=== PATIENT | female | born 2000 | race Caucasian/White ===

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

== ENCOUNTER 2021-12-10 14:06 | Emergency (ER) | payer OTHER, SELFPAY ==
[2021-12-10 14:16] VITALS: BP 138/100; PULSE 105; RESP 14; TEMP 36.8; O2SAT 100
--- NOTE | 2021-12-10 14:19 | ED.URI ---
HPI - URI/Sore Throat General Chief Complaint: Upper Respiratory Infection Stated Complaint: Chest Congestion/Sore Throat Time Seen by Provider: 12/10/21 14:35 Source: patient, RN notes reviewed and old records reviewed Mode of arrival: ambulatory Limitations: no limitations History of Present Illness HPI Narrative: 21-year-old female who presents to [facility] care with 4 day history of cough with increase in the past 2 days with some shortness of breath and some feelings of wheezing. Patient states no fevers chill or sweats. reports that she has expectorated some yellowish mucous with cough. Patient reports that she has not taken any OTC medication for her symptoms. Patient reports that she has had no fevers or chills. Patient states that she had COVID in June of 2021 MD elicited complaint: cough and sore throat Related Data Home Medications Medication Instructions Recorded Confirmed lisinopril 10 mg PO DAILY 12/10/21 12/10/21 Allergies Allergy/AdvReac Type Severity Reaction Status Date / Time No Known Allergies Allergy Verified 12/10/21 14:38 Review of Systems Review of Systems: CONSTITUTIONAL: Denies fever, chills, or sweats. EYES: Denies visual changes, redness, or discharge. ENT: Denies rhinorrhea, congestion,initial sore throat but gone, no otalgia. CARDIOVASCULAR: Denies chest pain, palpitations, or edema. RESPIRATORY:Positive for cough and some dyspnea with wheezing GASTROINTESTINAL: Denies abdominal pain, nausea, vomiting, or diarrhea. GENITOURINARY: Denies dysuria or hematuria. SKIN: Denies rash or itching. MUSCULOSKELETAL: Denies back pain, joint pain, or myalgia. NEUROLOGIC: Denies headache, numbness, or weakness. PSYCHIATRIC: Denies anxiety or depression. All systems reviewed & are unremarkable except as noted in HPI and below PMFSH Past Medical History Medical History Hypertension Hypertension during Family History Family History Mother Hypertension Grandparent Hypertension Diabetes mellitus Social History Social History Smoking status: Former smoker Tobacco type: e-cigarettes/vaping Substance use: never Spiritual care concerns: No Comments At time of signature, agree with nursing past medical, surgical, social and family history. There is no relevant family history pertinent to the presenting complaint Exam Narrative: GENERAL: Well-appearing, well-nourished, and in no acute distress. HEAD: Normocephalic, atraumatic. EYES: PERRLA and EOMI. ENT: Nares clear, minimal clear rhinorrhea no epistaxis. Mucous membranes moist. TM's normal with good light reflex, throat mild red with no lesions or exudates or tonsil enlargement. NECK: Supple. no lymphadenopathy CHEST: Scattered wheezing noted on auscultation. No respiratory distress,cough noted,SAO2 100% on room air HEART: Regular rate and rhythm. No murmur heard. Normal peripheral pulses. ABDOMEN: Soft, nontender, nondistended, normal active bowel sounds. EXTREMITIES: Normal range of motion. No edema. SKIN: Warm, dry, no rash. NEURO: No focal deficits. Alert and oriented x3. Course Course Level of Care: Express Care Visit Vital Signs Vital signs: Vital Signs Temperature 36.8 C 12/10/21 14:16 Pulse Rate 105 H 12/10/21 14:16 Respiratory Rate 14 12/10/21 14:16 Blood Pressure 138/100 H 12/10/21 14:16 Pulse Oximetry 100 12/10/21 14:16 Temperature 36.8 C 12/10/21 14:16 Pulse Rate 105 H 12/10/21 14:16 Respiratory Rate 14 12/10/21 14:16 Blood Pressure 138/100 H 12/10/21 14:16 Pulse Oximetry 100 12/10/21 14:16 MDM - URI/Sore Throat Differential Diagnosis Differential diagnosis: Likely upper respiratory infection, sinusitis, viral infection, bronchitis and pharyngitis Medical Records Attestation: I reviewed the patient's medica
== END 2021-12-10 15:30 | disposition home or self-care (01) ==
PROVIDERS: Emergency Provider Registered Nurse
DX: J40 Bronchitis, not specified as acute or chronic (principal); I10 Essential (primary) hypertension; Z86.16 Personal history of COVID-19
CPT/HCPCS: 99213; G0463

== ENCOUNTER 2022-08-22 11:01 | Emergency (ER) | payer OTHER, SELFPAY ==
[2022-08-22 11:01] VITALS: BP 153/109; PULSE 88; RESP 16; TEMP 36.5; O2SAT 100
--- NOTE | 2022-08-22 11:20 | ED.DENTAL ---
HPI - Dental/Oral General Chief complaint: Dental/Oral Stated complaint: Tooth Pain Time Seen by Provider: 08/22/22 11:20 Source: patient Mode of arrival: ambulatory History of Present Illness HPI Narrative: 22-year-old female presented for complaint of left lower dental pain worsening over the last 2 months. States this site is a cracked tooth and the filling has been chipped for a long time. She endorses she was unable to sleep last due to the pain. Denies drainage or swelling. She is unable to get in with distorted. She denies Tylenol arthritis and Orajel for symptoms. MD Complaint: tooth pain Related Data Home Medications Medication Instructions Recorded Confirmed lisinopril 10 mg tablet 10 mg PO DAILY 08/22/22 08/22/22 Allergies Allergy/AdvReac Type Severity Reaction Status Date / Time No Known Allergies Allergy Verified 08/22/22 11:24 Review of Systems Review of Systems: CONSTITUTIONAL: Denies body aches, fever, chills ENT: Denies rhinorrhea, congestion, sore throat, or otalgia. Reports dental pain CARDIOVASCULAR: Denies chest pain, palpitations RESPIRATORY: Denies cough or dyspnea. SKIN: Denies rash, itching, or wounds. MUSCULOSKELETAL: Denies myalgia. NEUROLOGIC: Denies headache, numbness, tingling, or weakness. [facility] Past Medical History Medical History Hypertension Hypertension during Family History Family History Mother Hypertension Grandparent Hypertension Diabetes mellitus Social History Social History Smoking status: Former smoker Tobacco type: e-cigarettes/vaping Substance use: never Spiritual care concerns: No Comments At time of signature, I have reviewed and agree with nursing past medical, surgical, social and family history unless otherwise noted. Please see nursing chart for further information. There is no relevant family history pertinent to the presenting complaint Exam Narrative: GENERAL: Appears in pain; no acute distress. HEAD: Normocephalic, atraumatic. EYES: EOMI. No redness or drainage. Conjunctivae normal. ENT: Dental pain location of #19, site is cracked tooth, discolored brown , and broken filling, moderate erythema and gum swelling. No active drainage. Mucous membranes pink and moist. TMs normal bilaterally. Throat normal. Uvula midline. NECK: Normal AROM. left submandibular lymphadenopathy. CHEST: Clear to auscultation. HEART: Regular rate and rhythm. No murmur appreciated. SKIN: Warm, dry, no rash. Normal skin turgor. NEURO: No focal deficits. Alert and oriented x3. Gait steady. Course Course Emergency Course: Patient is aware of diagnosis, understands and agrees to treatment plan. Anticipatory guidance given. Patient agrees to follow-up as directed and is aware of reasons to seek care at the emergency department. Portions of this record may have been created with voice recognition software Level of Care: Express Care Visit Vital Signs Vital signs: Vital Signs Temperature 97.7 F 08/22/22 11:01 Pulse Rate 88 08/22/22 11:01 Respiratory Rate 16 08/22/22 11:01 Blood Pressure 153/109 H 08/22/22 11:01 Pulse Oximetry 100 08/22/22 11:01 Oxygen Delivery Room Air 08/22/22 11:01 Temperature 97.7 F 08/22/22 11:01 Pulse Rate 88 08/22/22 11:01 Respiratory Rate 16 08/22/22 11:01 Blood Pressure 153/109 H 08/22/22 11:01 Pulse Oximetry 100 08/22/22 11:01 Oxygen Delivery Room Air 08/22/22 11:01 MDM - Dental/Oral MDM Narrative Medical decision making narrative: Patients pain and complaint coupled with physical findings are consistent with dentalgia/ dental abscess There are no focal signs of space occupying lesions that are compromising to the airway; no dysphagia, odynophagia, dysphonia, or dyspnea. No uvular deviatio
== END 2022-08-22 11:32 | disposition home or self-care (01) ==
PROVIDERS: Emergency Provider Nurse Practitioner Family; PCP Family Medicine
DX: K04.7 Periapical abscess without sinus (principal); Z87.891 Personal history of nicotine dependence; I10 Essential (primary) hypertension
CPT/HCPCS: 99213; G0463

== ENCOUNTER 2023-05-09 09:21 | Emergency (ER) | payer OTHER, SELFPAY ==
[2023-05-09 09:27] VITALS: BP 173/127; PULSE 99; RESP 18; TEMP 36.8; O2SAT 98
--- NOTE | 2023-05-09 09:49 | ED.DENTAL ---
HPI - Dental/Oral General Chief complaint: Dental/Oral Stated complaint: Toothache Time Seen by Provider: 05/09/23 09:49 Source: patient, RN notes reviewed and old records reviewed Mode of arrival: ambulatory Limitations: no limitations History of Present Illness HPI Narrative: 23 year old female who presents to [facility] care with complaints of dental pain to left upper and lower molars # 15 and #18 which started last night. Patient reports that she has appointment in August at [facility] for dental work but did call this morning to see if she could get in quicker. Patient has taken Ibuprofen and also used numbing gel for her discomfort. Patient has had previous episodes of same teeth bothering her in August of 2022. Patient reports that her last doctors appointment she was taken off of her hypertensive medication but blood pressure elevated today,patient instructed that she needs to follow up with her PCP in regards to elevated blood pressure. Patient reports had PIH and had been on medication for awhile after delivery of child.Patient did receive call and is able to get into dentist tomorrow due to a cancellation. MD Complaint: tooth pain Location: Tooth # (15,18) Onset (ago): day(s) (1) Severity scale (1-10): 9 Treatment prior to arrival: oral analgesic Related Data Allergies Allergy/AdvReac Type Severity Reaction Status Date / Time No Known Allergies Allergy Verified 08/22/22 11:24 Review of Systems Review of Systems: CONSTITUTIONAL: Denies fever, chills, or sweats. ENT: Denies rhinorrhea, congestion, sore throat, or otalgia. Reports dental pain#15 and #18 teeth with hole noted in bottom tooth and broken upper molar. CARDIOVASCULAR: Denies chest pain, palpitations, or edema. RESPIRATORY: Denies cough or dyspnea. SKIN: Denies rash or itching. MUSCULOSKELETAL: Denies myalgia. NEUROLOGIC: Denies headache All systems reviewed & are unremarkable except as noted in HPI and below PMFSH Past Medical History Medical History (Updated 05/10/23 @ 08:00 by Jacinta Vyas NP) Hypertension Hypertension during Urinary tract infection Family History Family History Mother Hypertension Grandparent Hypertension Diabetes mellitus Social History Social History Smoking status: Former smoker Tobacco type: e-cigarettes/vaping Substance use: never Spiritual care concerns: No Comments At time of signature, agree with nursing past medical, surgical, social and family history. There is no relevant family history pertinent to the presenting complaint Exam Narrative: GENERAL: Well-appearing, well-nourished, and in no acute distress. HEAD: Normocephalic, atraumatic. EYES: PERRLA and EOMI, TM's normal, throat pink with no swelling ENT: Nares clear, no rhinorrhea or epistaxis. Mucous membranes moist,hole in bottom molar with redness around gum#18, broken upper left molar #15, no trismus or any facial swelling noted NECK: Supple.,no lymphadenopathy CHEST: Clear to auscultation. No respiratory distress.SAO2 98% on room air HEART: Regular rate and rhythm. No murmur heard. Normal peripheral pulses. SKIN: Warm, dry, no rash. NEURO: No focal deficits. Alert and oriented x3. Course Course Emergency Course: Patient is aware of diagnosis, understands and agrees to treatment plan. Anticipatory guidance given. Patient agrees to follow-up as directed and is aware of reasons to seek care at the emergency department. Portions of this record may have been created with voice recognition software Level of Care: Express Care Visit Vital Signs Vital signs: Vital Signs Temperature 36.8 C 05/09/23 09:27 Pulse Rate 99 05/09/23 09:27 Respiratory Rate 18 05/09/23 09:27 Blood Pressure 173/127 H 05/09/23 09:27 Pulse Oximetry 98 05/09/23 09:27 Oxygen Delivery Room Air 05/09/23 09:27
[2023-05-09 10:00] VITALS: BP 160/104
== END 2023-05-09 10:07 | disposition home or self-care (01) ==
PROVIDERS: Emergency Provider Registered Nurse; PCP Family Medicine
DX: K04.7 Periapical abscess without sinus (principal); I10 Essential (primary) hypertension; Z87.891 Personal history of nicotine dependence
CPT/HCPCS: 99203; G0463

== ENCOUNTER 2024-01-08 11:43 | Emergency (ER) | payer OTHER, SELFPAY ==
--- NOTE | 2024-01-08 11:52 | ED.GENADULT ---
HPI - General Adult General Chief complaint: Dizziness Stated complaint: Blood Pressure Problem Time Seen by Provider: 01/08/24 12:06 Source: patient Mode of arrival: ambulatory Limitations: no limitations History of Present Illness HPI narrative: 23-year-old female presents with concern for dizziness, high blood pressure. She reports feeling like she was going to pass out and blurry vision today at work. She reports history of hypertension, she was recently taken off of her antihypertensive medication because it was felt her blood pressure was getting too low. She denies any thunderclap headache, weakness in any extremity, difficulty speaking, difficulty swallowing. MD complaint: hypertension Related Data Home Medications Medication Instructions Recorded Confirmed norethindrone (contraceptive) 0.35 0.35 mg PO DAILY 01/08/24 01/08/24 mg tablet Allergies Allergy/AdvReac Type Severity Reaction Status Date / Time No Known Allergies Allergy Verified 08/22/22 11:24 Review of Systems Review of Systems: CONSTITUTIONAL: Denies malaise, chills, sweats, or fever. EYES: Reports blurry vision CARDIOVASCULAR: Denies chest pain, palpitations, or edema. RESPIRATORY: Denies cough or dyspnea. GASTROINTESTINAL: Denies abdominal pain, NEUROLOGIC: Denies numbness, weakness, or headache. Reports dizziness, feeling of near-syncope PSYCHIATRIC: Denies anxiety or depression. All systems reviewed & are unremarkable except as noted in HPI and below PMFSH Past Medical History Medical History (Updated 01/08/24 @ 12:22 by Bonnie Silva NP) Hypertension Hypertension during Urinary tract infection Family History Family History Mother Hypertension Grandparent Hypertension Diabetes mellitus Social History Social History Smoking status: Former smoker Tobacco type: e-cigarettes/vaping Substance use: never Spiritual care concerns: No Comments At time of signature, agree with nursing past medical, surgical, social and family history. There is no relevant family history pertinent to the presenting complaint Exam Narrative: GENERAL: Well-appearing, well-nourished, and in no acute distress. HEAD: Normocephalic, atraumatic. EYES: PERRLA, sclera clear, and EOMI. No nystagmus. ENT: Nares clear, turbinates pink, no rhinorrhea or epistaxis. Mucous membranes moist. NECK: Supple. CHEST: No respiratory distress. Clear to auscultation. No bony deformities, no asymmetry. Speaks in full sentences. HEART: Regular rate and rhythm. No murmur heard. Normal peripheral pulses. SKIN: Warm, dry, no visible rash. NEURO: Alert and oriented x3. No focal deficits. Cranial nerves II through XII grossly intact PSYCH: Normal mood and affect Course Course Emergency Course: Patient is aware of, understands and agrees to be transferred to the ER. Patient agrees to proceed directly to the emergency department. Portions of this record may have been created with voice recognition software Level of Care: Express Care Visit Vital Signs Vital signs: Reviewed. Transfer Transfered to: [facility]) Transportation: Other (private vehicle) Transfer rationale: HTN Accepting physician: Page Transfer comments: I advised patient that she should not drive herself for safety reasons. She was unable to find a ride and did not want to take an ambulance. She signed AMA paperwork to this effect Medical Decision Making MDM Narrative Medical decision making narrative: The patient was evaluated by myself in the emergency department. History is obtained from patient who is an independent historian and physical exam was performed.? Available medical records were reviewed at this time. ? Exam findings warrant further evaluation in the ER ? Critical Care Time Critical Care Time Critical Care Time: No Disc
[2024-01-08 11:53] VITALS: BP 156/115; PULSE 102; RESP 16; TEMP 37.2; O2SAT 100
== END 2024-01-08 12:15 | disposition short-term general hospital (02) ==
PROVIDERS: Emergency Provider Nurse Practitioner; PCP Family Medicine
DX: I10 Essential (primary) hypertension (principal)
CPT/HCPCS: 99213; G0463

== ENCOUNTER 2024-07-02 09:49 | Emergency (ER) | payer OTHER, SELFPAY ==
--- OUTSIDE RECORDS SUMMARY | 2024-07-02 09:52 | XMS_ITS | Data Portability ---
Author Organization [facility] Address [address] [place] [address] Assessment Encounter Date Assessment Date Assessment LastModified by Organization Details LastModified Time 02/10/2021 02/10/2021 since upt and blood negative for plan Depo injection today, f/u wwe [email or web address] Not available 02/10/2021 11:05:48 06/09/2021 06/09/2021 PCP referral she will restart her labetalol in the meanwhile. discussed with uncontrolled htn, may not be on estrogen. Discussed progesterone only options, she would like POP. slynd sent. Discussed the usage, side effects, risks, and benefits of OCP use. Questions answered. She will start OCP with next menses and follow up for a med check in 4 mos. [email or web address] Not available 06/12/2021 10:07:00 Plan of Treatment Reminders Order Date Submit Date Provider Last Modified By Organization Details Last Modified Time Details Appointments None recorded. Lab None recorded. Referral None recorded. Procedures None recorded. Surgeries None recorded. Imaging None recorded. Medication Orders labetalol 100 mg tablet 2020 021 Not available 12:11:49 [employer] a 150 mg/mL intramuscul ar suspension 2020 021 Not available 14:11:01 Depo-[employer] a 150 mg/mL intramuscul ar suspension 2020 021 [email or web address] Not available 14:11:01 Slynd 4 mg (28) tablet 2020 JERI Not available 16:20:52 Patient TargetsNo targets recorded. Patient InstructionsNo instructions recorded. Reason for Referral None Reported. Results Created Date Observation Date Name Description Value Unit Range Abnormal Flag Note LastModifiedBy Organization Detail LastModifiedTime 11/23/19 21 11/22/2020 strep tococ cus group B, cultu re, unspe cifie d speci men result report SEE RESULT S BELOW Test: Cultu re: Group B Strep Scree n - Vagin al/Re ctal Speci men Sourc e: Vagin a/Rec miguel Speci men Type: Vagin al/Re ctal Speci men Date: 2:27 PM Resul t Date: 8:18 PM Resul t Statu s: Final resul t Abnor mal: No Resul ting Lab: [facility] [address] [address] Tel: CULTU RE ----- ----- ----- --- No Group B strep isola raciel at 2 days (rochelle ctive broth enhan cemen t) Not Available [facility] (Lab) [address] [facility], [place], [address], 11/25/2020 21:22:07 02/11/20 21 02/10/2021 CT/GC AND TRICH OMONA S VAGIN FATOU (RRNA ), URINE chlamydia trachomatis, PCR Negati ve negati ve Not Available [facility] (Lab) [address] [facility] [facility], [place], [address], 02/11/2021 13:59:27 02/11/20 21 02/10/2021 CT/GC AND TRICH OMONA S VAGIN FATOU (RRNA ), URINE neisseria gonorrhoeae, PCR Negati ve negati ve Not Available [facility] (Lab) [address] [facility], [place], [address], 02/11/2021 13:59:27 02/11/20 21 02/10/2021 CT/GC AND TRICH OMONA S VAGIN FATOU (RRNA ), URINE trichomonas vaginalis ribosomal RNA (rrna) Negati ve negati ve Not Available [facility] (Lab) [address], [place], [address], 02/11/2021 13:59:27 02/11/20 21 02/10/2021 pregn farhat test, urine HCG negati ve Not Available [facility] [address], [place], [address], 02/10/2021 10:51:32 11/09/19 21 11/08/2020 non-s tress test No observ ation record ed. [email or web address], [place], [address], 11/08/2020 11:08:06 11/12/19 21 11/11/2020 US, obste tric, follo w-up No observ ation record ed. [address] [facility] [address] [place] [address], [address], 11/14/2020 11:00:47 11/15/19 21 11/11/2020 US, obste tric, follo w-up No observ ation record ed. [address] [facility] [address] [place] [address], [address], 11/14/2020 11:00:47 11/16/19 21 11/15/2020 US, obste tric, follo w-up No observ ation record ed. [address] [facility] [address] [place] [address], [address], 11/17/2020 10:26:22 11/17/19 21 11/15/2020 US, obste tric, follo w-up No observ ation record ed. [address] [facility] [address] [place] [address], [address], 11/17/2020 10:26:01 11/23/1911/22/2020 US, obste tric No observ ation record ed. [email or web address] [facility] [address] [place], [address], 11/22/2020 17:48:40 11/24/1911/22/2020 US, obste tric, follo w-up No observ ation record ed. [email or web address] [facility] [address] [place], [address], 11/23/2020 14:14:02 Result Notes None recorded. Problems Name Problem SNOMED Code Status Onset Date Resolution Date Notes Provider Name and Address Organization Details Recorded Time Pregnanc y 03183155 Completed 202012/09/2020 Corina llanes [facility] 12:27:21 Pregnanc y-induce d hyperten lindsay 61063126 Completed Vinny Merchant MD [address], [place], [address], [place] [facility] 12:37:40 Chronic hyperten lindsay in obstetri c context 3749563 Completed NSTs @ 32 wks, had baseline PIH labs & 24 TP with previous provider Corina llanes [facility] 12:27:15 Low lying placenta 996980786 Completed 202009/22/2020 RESOLVED Corina llanes [facility] 12:27:15 Doppler studies abnormal 168330252 Completed 2020 [facility]FM - [facility] 09/27 09 U/S no follow up indicate d Corina llanes [facility] 12:27:15 Small for gestatio nal age fetus 323806535 Completed 2020 [facility]FM - [facility] 11/29 US & NST 0730 Corina Radhaedmond osiris null, [facility] 12:27:15 Chronic hyperten lindsay complica ting AND/OR reason for care during pregnanc y 98438265 Completed 202002/10/2021 Latia Wolf null, [facility] 10:44:01 Problem Notes None recorded. Procedures Surgical History Date Name Laterality Status Provider Name and Address Organization Details Recorded Time 11/01/2020 NST completed Shayy Fuentes MD [address], [place], [address], [facility] 11/01/2020 12:04:11 Imaging Results Imaging Date Name Status LastModified by Organiz ation Details LastModified Time 11/08/2020 non-stress test completed [email or web address], [place], [address], 11/08/2020 11:08:06 11/11/2020 US, obstetric, follow-up completed [address] [facility] [address], [address], 11/14/2020 11:00:47 11/11/2020 US, obstetric, follow-up completed [address] [facility] [address], [address], 11/14/2020 11:00:47 11/15/2020 US, obstetric, follow-up completed [address] [facility] [address], [address], 11/17/2020 10:26:22 11/15/2020 US, obstetric, follow-up completed [address] [facility] [address], [address], 11/17/2020 10:26:01 11/22/2020 US, obstetric completed [email or web address] [facility] [address] [place], [address], 11/22/2020 17:48:40 11/22/2020 US, obstetric, follow-up completed [email or web address] [facility] [address] [place], [address], 11/23/2020 14:14:02 Procedure Notes None recorded. Medical Equipment None Reported. Allergies No known drug allergies Medications Name Sig Start Date Stop Date Status Note LastModified by Organization Details LastModified Time Mirena 21 mcg/24 hr (up to 8 years) 52 mg intrauter ine device Take 1 device by intraute rine route. 02/10 completed mirena iud inserted 1 and needs removed by 7 Not Available Not Available Not Available labetalol 200 mg tablet Take 1 tablet twice a day by oral route. 06/09 completed Not Available Not Available Not Available bacitraci n 500 unit/gram topical ointment NAVI TOPICALL Y AA BID 08/10 completed Not Available Not Available Not Available metronida zole 500 mg tablet TAKE 1 TABLET BY MOUTH TWICE A DAY FOR 7 DAYS 08/10 completed Not Available Not Available Not Available cephalexi n 500 mg capsule TAKE 1 CAPSULE BY MOUTH TWICE A DAY 11/08 completed Not Available Not Available Not Available lisinopri l 10 mg tablet TAKE 1 TABLET BY MOUTH EVERY DAY active Not Available Not Available No t Available cephalexi n 500 mg tablet take one capsule by oral route every 12 hours 11/08 completed Not Available Not Available Not Available labetalol 100 mg tablet Take 1 tablet every day by oral route. 12/26 completed Not Available Not Available Not Available nifedipin e ER 60 mg tablet,ex tended release TAKE 1 TABLET BY MOUTH EVERY DAY 08/10 completed Not Available Not Available Not Available fluticaso ne propionat e 50 mcg/actua tion nasal spray,portia pension SPRAY 1 SPRAY INTO EACH NOSTRIL EVERY DAY 08/10 completed Not Available Not Available Not Available medroxypr ogesteron e 150 mg/mL intramusc ular suspensio n Inject 1 mL every 3 months by intramus cular route. 06/02 completed Not Available Not Available Not Available amoxicill in 875 mg-potass ium clavulana te 125 mg tablet TAKE 1 TABLET BY MOUTH EVERY 12 HOURS 11/08 completed Not Available Not Available Not Available Vitamin 27 mg iron-0.8 mg tablet TAKE 1 TABLET BY MOUTH EVERY DAY 12/26 completed Not Available Not Available Not Available 08/10 (28) 1 mg-20 mcg (21)/75 mg (7) tablet TAKE 1 TABLET BY MOUTH EVERY DAY 08/10 completed Not Available Not Available Not Available nitrofura ntoin monohydra te/macroc rystals 100 mg capsule TAKE 1 CAPSULE BY MOUTH EVERY 12 HOURS FOR 5 DAYS 08/10 completed Not Available Not Available Not Available Slynd 4 mg (28) tablet TAKE 1 TABLET BY MOUTH EVERY DAY active Not Available Not Available No t Available Vitals Date Recorded Body height Body mass index (BMI) Percentile per age and sex Body mass index (BMI) Systolic blood pressure Diastolic blood pressure Systolic blood pressure Diastolic blood pressure Provider Name and Address Organization Details Last Updated DateTime 1 154.94 cm 95 % 31.2 kg/m2 139 mm[Hg] 100 mm[Hg] 123 mm[Hg] 87 mm[Hg] [facility] 12:16:18 Date Recorded Body weight Provider Name an d Address Organization Details Last Updated DateTime 12/06/2020 97665.40622 g Corina White [facility] 12/09/2020 12:27:19 Date Recorded Body height Body mass index (BMI) Percentile per age and sex Body mass index (BMI) Body weight Systolic blood pressure Diastolic blood pressure Provider Name and Address Organization Details Last Updated DateTime 1 154.94 cm 95 % 31.2 kg/m2 78439.7 4 g 132 mm[Hg] 92 mm[Hg] Juany Murrieta [facility] 12:11:45 Date Recorded Body height Body mass index (BMI) Percentile per age and sex Body mass index (BMI) Body weight Body height Systolic blood pressure Diastolic blood pressure Provider Name and Address Organization Details Last Updated DateTime 1 154.94 cm 95 % 31.6 kg/m2 82280.9 3 g 154.94 cm 130 mm[Hg] 89 mm[Hg] Latia Wolf [facility] 1 10:43:52 Date Recorded Body height Body mass index (BMI) Percentile per age and sex Body mass index (BMI) Body weight Systolic blood pressure Diastolic blood pressure Systolic blood pressure Diastolic blood pressure Provider Name and Address Organization Details Last Updated DateTime 1 154.94 cm 96 % 33.3 kg/m2 75858.2 6 g 146 mm[Hg] 99 mm[Hg] 150 mm[Hg] 102 mm[Hg] Ketty Armas [facility] 1 16:08:03 Social History Question Answer Notes LastModified by Organizat ion Details LastModified Time Tobacco Smoking Status Never Smoker Latia Wolf [facility] 09/27/2020 10:48:19 Do You Have An Advance Directive? No [email or web address] Information not available 09/27/2020 What Is Your Level Of Alcohol Consumption? None [email or web address] Information not available 09/27/2020 If You Are , What Was Your Level Of Alcohol Consumption Prior To ? None [email or web address] Information not available 09/27/2020 Are You Blind Or Do You Have Difficulty Seeing? No [email or web address] Information not available 09/27/2020 What Is Your Level Of Caffeine Consumption? Moderate Information not available 08/10/2020 How Much Tobacco Do You Chew? None [email or web address] Information not available 09/27/2020 In The 14 Days Before Symptom Onset, Have You Had Close Contact With A Laboratory-confir med COVID-19 While That Case Was Ill? No Information not available 09/27/2020 In The 14 Days Before Symptom Onset, Have You Had Close Contact With A Person Who Is Under Investigation For COVID-19 While That Person Was Ill? No [email or web address] Information not available 09/27/2020 Have You Been To An Area Known To Be High Risk For COVID-19? No [email or web address] Information not available 09/27/2020 Are You Deaf Or Do You Have Serious Difficulty Hearing? No [email or web address] Information not available 09/27/2020 What Type Of Diet Are You Following? REGULAR [email or web address] Information not available 09/27/2020 Do You Or Have You Ever Used E-cigarettes Or Vape? Former User Of Electronic Cigarettes [email or web address] Information not available 09/27/2020 What Is The Highest Grade Or Level Of School You Have Completed Or The Highest Degree You Have Received? [id number] [email or web address] Information not available 09/27/2020 Are There Any Guns Present In Your Home? No [email or web address] Information not available 09/27/2020 Do You Use Protection During Sex? No Information not available 09/27/2020 Do You Use Your Seat Belt Or Car Seat Routinely? Yes Information not available 09/27/2020 Do You Have Smoke And Carbon Monoxide Detectors In Your Home? Yes [email or web address] Information not available 09/27/2020 How Much Tobacco Do You Smoke? No [email or web address] Information not available 09/27/2020 Do You Feel Stressed (tense, Restless, Nervous, Or Anxious, Or Unable To Sleep At Night)? [id number] [email or web address] Information not available 09/27/2020 Do You Use Any Illicit Or Recreational Drugs? No Information not available 08/10/2020 Do You Use Sunscreen Routinely? Yes [email or web address] Information not available 09/27/2020 Has Tobacco Cessation Counseling Been Provided? No [email or web address] Information not available 09/27/2020 Have You Used IV Drugs? No [email or web address] Information not available 09/27/2020 Do You Or Have You Ever Used Any Other Forms Of Tobacco Or Nicotine? Yes [email or web address] Information not available 09/27/2020 How Many Years Have You Used E-cigarettes Or Vape? 1 [email or web address] Information not available 09/27/2020 Sex: Unknown Functional Status Question Answer Note LastModified by Organization D etails LastModified Time Are you able to walk? [email or web address] Information not available 09/27/2020 What is your exercise level? Moderate Information not available 08/10/2020 Mental Status None recorded. Family History Relationship Description Onset Age of this Age Resolved Age Notes LastModified by Organization Details LastModified Time Paternal Grandfather Diabetes mellitus Not available 2020 12:22:01 Maternal Aunt Diabetes mellitus Not available 2020 12:22:01 Maternal Aunt Hyperlipidem ia phewitt Not available 2020 10:36:27 Mother Hyperlipidem ia phewitt Not available 2020 10:36:27 Mother Hypertensive disorder Not available 2020 12:22:49 Maternal Grandmother Hypertensive disorder Not available 2020 12:22:49 Paternal Aunt Hypertensive disorder Not available 2020 12:22:49 Medical History Condition Response Allergies (Food, seasonal, environmental ) N Other N Drug/Latex Allergies/Reactions N Blood Transfusion N Breast Cancer N Dermatologic Disorders N Lung Disease N Defects or Inherited Disease N Breast Problem N Gestational Diabetes N Hematologic disorders N Anesthesia Complications N History of STI N Deep Vein Thrombosis N Polycystic ovary syndrome N Anxiety Disorder N Autoimmune disease N Arthritis N Polyps N Infertility N Acid Reflux (GERD) N History of abnormal pap N Cancer N Varicosities N Stroke N Neurologic/Epilepsy N Endometriosis N High Cholesterol N Fibromyalgia N Headaches N Kidney Disease N Heart Problems N Thyroid Problems N Kidney or Bladder Problems N GI Problems N Eating Disorder N Anemia N Art (IVF or FET) N Psychiatric Illness N Ovarian Cancer N Diabetes N Pulmonary (TB, Asthma) N Hepatitis/Liver Disease N No Past Medical History N Eczema N Urinary Tract Infection N Abuse/Domestic Violence N Asthma N Trauma/Violence N Depression/ depression N Heart Disease N Pre-Eclampsia N Hypertension Y Osteoporosis N Thrombophilias N Gynecological History Statement/Question Response On BCP's at Conception? N N STIs/STDs Y Was last menstrual period normal N HPV Vaccine N Duration of Flow (days) 4 15 Current Control Method None Frequency of Cycle (Q days) 4 Sexually Active? Y Age of first menstrual cycle 16 Date of Last Pap Smear Sexual Problems? N Desired Control Method BCPs N Obstetrics History GPAL:G 2 P 2 0 0 2 Type Value Full Term 2 Living 2 Total 2 Past Encounters Encounter ID Performer Location Encounter Start Date Encounter Closed Date Diagnosis/Indication Diagnosis SNOMED-CT Code Diagnosis ICD10 Code [id number] Vinny Merchant MD [facility] [address],[place] [address] 08/10/2020 11:32:10 08/10/2020 12:55:50 Routine care 604132940 Z34.92 [id number] [facility] [address],[place] [address] 08/10/2020 16:35:17 11/22/2020 12:43:56 [id number] Rimma Piedra [facility] [address],[place] [address] 08/25/2020 11:22:34 08/25/2020 12:24:45 Low lying placenta 838381060 O44.40 Z3A.23 [id number] Vinny Merchant MD [facility] [address],[place] [address] 09/16/2020 16:04:48 09/19/2020 14:01:39 Routine care 514146090 Z34.92 [id number] [facility] [address],[place] [address] 09/22/2020 14:54:13 09/22/2020 15:36:17 Low lying placenta 856151671 O44.40 Z3A.27 [id number] [facility] [address],[place] [address] 09/27/2020 10:36:23 09/27/2020 12:05:58 Routine care 190647770 Z34.93 [id number] Margarita Ray [facility] [address],[place] [address] 10/11/2020 10:50:20 10/11/2020 11:35:24 Routine care 665356672 Z34.93 [id number] [facility] [address],[place] [address] 10/25/2020 09:46:12 10/25/2020 11:28:04 Small for gestational age fetus 691306135 O36.5930 O36.8330 O16.3 Z3A.32 [id number] Shayy Fuentes MD [facility] [address],[place] [address] 10/25/2020 09:46:25 10/25/2020 12:02:54 Chronic hypertension complicating AND/OR reason for care during 68027264 O10.013 grow th restriction 51014338 O35.8XX9 [id number] Corina Garcia [facility] [address],[place] [address] 10/25/2020 09:47:46 10/25/2020 10:30:05 Chronic hypertension complicating AND/OR reason for care during 79717182 O10.013 [id number] Corina Garcia [facility] [address],[place] [address] 10/28/2020 09:33:21 10/28/2020 10:48:00 Chronic hypertension complicating AND/OR reason for care during 61440118 O10.013 [id number] Myra Lee [facility] [address],[place] [address] 10/28/2020 11:10:50 10/28/2020 12:09:44 condition affecting obstetrical care of mother 849495229 O36.8330 [id number] Corina Garcia [facility] [address],[place] [address] 11/01/2020 10:38:26 11/01/2020 11:19:59 Chronic hypertension complicating AND/OR reason for care during 92771803 O10.013 [id number] Shayy Fuentes MD [facility] [address],[place] [address] 11/01/2020 10:38:47 11/01/2020 12:14:54 Chronic hypertension complicating AND/OR reason for care during 43870705 O10.013 Routine an tenatal care 223445175 Z34.93 [id number] Kathy Melgoza ier [facility] [address],[place] [address] 11/01/2020 11:46:04 11/01/2020 12:22:19 condition affecting obstetrical care of mother 814745452 O36.8330 [id number] Corina Garcia [facility] [address],[place] [address] 11/04/2020 12:06:39 11/04/2020 13:34:59 Chronic hypertension complicating AND/OR reason for care during 02068755 O10.013 [id number] Myra Lee [facility] [address],[place] [address] 11/04/2020 12:06:52 11/28/2020 13:49:03 [id number] Bee Owens [facility] [address],[place] [address] 11/04/2020 12:07:05 11/04/2020 13:38:45 Small for gestational age fetus 160905085 O36.5930 Z3A.33 [id number] [facility] [address],[place] [address] 11/08/2020 10:36:21 11/08/2020 11:24:02 Routine care 364766233 Z34.93 [id number] Corina Garcia [facility] [address],[place] [address] 11/08/2020 10:35:12 11/08/2020 11:12:38 Chronic hypertension complicating AND/OR reason for care during 86210764 O16.9 [id number] [facility] [address],[place] [address] 11/15/2020 14:22:17 11/15/2020 14:53:28 Routine care 685471417 Z34.93 [id number] Shayy Fuentes MD [facility] [address],[place] [address] 11/22/2020 11:45:42 11/22/2020 13:53:07 Chronic hypertension complicating AND/OR reason for care during 87615621 O10.013 [id number] [facility] [address],[place] [address] 12/06/2020 12:11:45 12/06/2020 12:45:20 Chronic hypertension complicating AND/OR reason for care during 92977154 O16.9 [id number] [facility] [address],[place] [address] 12/26/2020 12:02:38 12/26/2020 12:25:55 state 47767664 Z39.2 [id number] [facility] [address],[place] [address] 02/10/2021 10:31:23 02/10/2021 11:11:23 Contraception care management 217242404 Z30.9 [id number] Latia Wolf [facility] [address],[place] [address] 02/10/2021 16:46:23 02/13/2021 16:21:31 Contraception care management 418747161 Z30.9 [id number] Shayy Fuentes MD [facility] [address],[place] [address] 06/09/2021 16:01:13 06/12/2021 11:38:01 Essential hypertension 81075450 I10 Initial pr escription of oral contraception 388189184 Z30.011 Health Concerns Section Related Observation LastModified by Organization Detai ls LastModified Time None Recorded Concern Status LastModified by Organization Details LastModified Time None Recorded Advance Directives Directive N: Payers Encounter Date Sequence Insurance Name Policy Number Policy Lawson Covered Member ID Lawson Member ID Guarantor Name 12/06/2020 1 [facility] (MEDICAID HMO) [id number] Madiha Pino [id number] Madiha Pino 12/26/2020 1 [facility] (MEDICAID HMO) [id number] Madiha Pino [id number] Madiha Pino 02/10/2021 1 [facility] (MEDICAID HMO) [id number] Madiha Angulos [id number] Madiha Pino 02/10/2021 1 [facility] (MEDICAID HMO) [id number] Madiha Angulos [id number] Madiha Pino 06/09/2021 1 [facility] (MEDICAID HMO) [id number] Madiha Angulos [id number] Madiha Pino Notes Date Note Type Note Provider Name and Address Organization Details Recorded Time 12/06/2020 text/html Post bp check. Denies h/a, v/d, or e/p. No edema. Pt is on labetalol but has only been taking 200mg once daily. Margarita Flor llanes [facility] 12/06/2020 12:45:15 12/26/2020 text/html VisitReported bypatient.Associate d Symptoms:no abnormal bleeding; no vaginal discharge; no pelvic pain; laceration well healed; no constipation; no fecal incontinence; no dysuria; no urinary incontinence; no fever; no problems; no mastitis; normal moodNotes:Bottle feeding Margarita Flor llanes [facility] 12/26/2020 12:24:22 02/10/2021 text/html Patient presents for IUD insertion after going through consent pt decided against it, has been on depoprovera in the past with no complications Jennifer Land CNM [address], [place], [address], [facility] 02/10/2021 11:06:03 06/09/2021 text/html Madiha is 21yo he re for control. Delivered in November. Was on Depo, stopped, but has not had period yet. Has cHTN and stopped labetalol a couple mos ago because thought BP was ok. bottle feeding. does not have a PCP. Shayy Fuentes MD [address], [place], [address], [facility] 06/12/2021 10:07:13 OBGyn Episode Ob Episode Information Episode Created Date Number of Fetuses Patient Bloodtype Patient rh Status Prepregnancy Weight lbs Domestic Partner Domestic Partner Phone Father Name Body Painter Status 08/10/19 21 1 O Positive CLOSED Fetus Data First Name Last Name Admitted to NICU Weight (g) Sex Living Outcome Pediatric Complications Fetus ID Race Codes Race Delivery Type [id number] 6 F true Full Term 7300 Vacuum Assisted Vaginal Delivery Problems Problem Notes FIRST BABY IS ADOPTED OUT, DOESN'T LIKE TO TALK ABOUT THIS!! 11/11- Per Jodi at [facility] they recommend 2x/wk MCA dopplers (we don't do this u/s here). Pt will be going to [facility] for 2x/wk BPP/Doppler/NST and will just come here for OB appts! 11/16 [facility] reduced twice weekly BPP/Doppler to 1wk pending dr rec. 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 Records reviewed - Will need rpt UC per records as well. ALFA levi 09/02/2020 Problem Name Start Date End Date Resolution Snomed Code Not e Chronic hypertension in obstetric context [id number] NSTs @ 32 wks, had baseline PIH labs & 24 TP with previous provider Small for gestational age fetus 10/25/2020 [id number] [facility] 11/29 US & NST 0730 Low lying placenta 08/25/2020 09/22/2020 [id number] RESOLVED Doppler studies abnormal 09/22/2020 [id number] [facility] 09/27 0 900 U/S no follow up indicated Berna Calculation BERNA Calculation Method Initial Berna Date Initial Exam Date Initial Exam Provider Initial Ultrasound Date Last Menstrual Period Date Ultra Sound Weeks Gestation Conception by IVF Embryo Age at Transfer Date of Transfer 12/17/19 22 08/10/19 21 06/29/2020 03/11/2020 15 Eighteen To Twenty Week Berna Update Ultra Sound Date Fundal Height At Umbil Quickening Date Ultra Sound Latest Weeks Gestation Final Berna Confirmed By Final Berna Confirmed Date Final Berna Date Ultra Sound Latest Days Gestation 0 [email or web address] 08/10/2020 12/20/19 21 0 Pre-jethro Flowsheet Flowsheet Date 08/10/2020 Jim Score Blood Edema Fundus Height Fundus Units Glucose Ketones Leukocytes Nitrite Labor Signs Protein Cervic Dilation Cervic Effacement Cervic Station Type Weight in lbs Pre/Post Dialysis Refused Weight 161.051958931613 BP Diastolic BP Location Tested BP Systolic BP Type 99 R arm 148 sitting 90 146 Fetus Heart Rate Present Fetus Movement Comments this patient is a 20-year-ol d 2 para 1001 at 21 weeks gestation who presents for transfer of care. She has had her labs and anatomy ultrasound. Repeat ultrasound for growth. To continue routine care. She is not talk about her 1st . She was 16 years old. She appears to have chronic hypertension . She had elevated blood pressures prior to today's visit. She was put on anti hypertensive medication and had a syncopal episode. She discontinued that medication.. Flowsheet Date 08/10/2020 Jim Score Blood Edema Fundus Height Fundus Units Glucose Ketones Leukocytes Nitrite Labor Signs Protein Cervic Dilation Cervic Effacement Cervic Station Type Weight in lbs Pre/Post Dialysis Refused BP Diastolic BP Location Tested BP Systolic BP Type Fetus Heart Rate Present Fetus Movement Comments Flowsheet Date 08/25/2020 Jim Score Blood Edema Fundus Height Fundus Units Glucose Ketones Leukocytes Nitrite Labor Signs Protein Cervic Dilation Cervic Effacement Cervic Station Type Weight in lbs Pre/Post Dialysis Refused BP Diastolic BP Location Tested BP Systolic BP Type Fetus Heart Rate Present Fetus Movement Comments Flowsheet Date 09/16/2020 Jim Score Blood Edema Fundus Height Fundus Units Glucose Ketones Leukocytes Nitrite Labor Signs Protein Cervic Dilation Cervic Effacement Cervic Station 27 Type Weight in lbs Pre/Post Dialysis Refused Weight 168.678821583944 BP Diastolic BP Location Tested BP Systolic BP Type 82 R arm 123 sitting Fetus Heart Rate Present A 140 Fetus Movement A Yes Comments Flowsheet Date 09/22/2020 Jim Score Blood Edema Fundus Height Fundus Units Glucose Ketones Leukocytes Nitrite Labor Signs Protein Cervic Dilation Cervic Effacement Cervic Station Type Weight in lbs Pre/Post Dialysis Refused BP Diastolic BP Location Tested BP Systolic BP Type Fetus Heart Rate Present Fetus Movement Comments Flowsheet Date 09/27/2020 Jim Score Blood Edema Fundus Height Fundus Units Glucose Ketones Leukocytes Nitrite Labor Signs Protein Cervic Dilation Cervic Effacement Cervic Station neg trace 27 trace Type Weight in lbs Pre/Post Dialysis Refused Weight 171.207236221964 BP Diastolic BP Location Tested BP Systolic BP Type 89 136 Fetus Heart Rate Present A 155 Fetus Movement A Yes Comments patient is having swelling a nd nausea, gct today, doing well, precautions reviewed Flowsheet Date 10/11/2020 Jim Score Blood Edema Fundus Height Fundus Units Glucose Ketones Leukocytes Nitrite Labor Signs Protein Cervic Dilation Cervic Effacement Cervic Station none 29 trace Type Weight in lbs Pre/Post Dialysis Refused Weight 172.940945466101 BP Diastolic BP Location Tested BP Systolic BP Type 82 121 Fetus Heart Rate Present A 136 Fetus Movement A Yes Comments Doing well. Having a girl K yla ! Back discomfort off and on. Relieved by Tylenol. No contractions. Discussed PTL precautions.Exam per Z. Due SNM. Flowsheet Date 10/25/2020 Jim Score Blood Edema Fundus Height Fundus Units Glucose Ketones Leukocytes Nitrite Labor Signs Protein Cervic Dilation Cervic Effacement Cervic Station Type Weight in lbs Pre/Post Dialysis Refused BP Diastolic BP Location Tested BP Systolic BP Type Fetus Heart Rate Present Fetus Movement Comments Flowsheet Date 10/25/2020 Jim Score Blood Edema Fundus Height Fundus Units Glucose Ketones Leukocytes Nitrite Labor Signs Protein Cervic Dilation Cervic Effacement Cervic Station Type Weight in lbs Pre/Post Dialysis Refused BP Diastolic BP Location Tested BP Systolic BP Type Fetus Heart Rate Present Fetus Movement Comments Flowsheet Date 10/25/2020 Jim Score Blood Edema Fundus Height Fundus Units Glucose Ketones Leukocytes Nitrite Labor Signs Protein Cervic Dilation Cervic Effacement Cervic Station neg none 34 trace Type Weight in lbs Pre/Post Dialysis Refused Weight 174.39684840566 BP Diastolic BP Location Tested BP Systolic BP Type 110 153 82 132 Fetus Heart Rate Present A 135 Fetus Movement A Yes Comments Doing well. Good FM. NST tod ay with one accel, BPP 02/26. Growth 10% with HC 1.5%. Normal dopplers. Will schedule return to [facility] in a week. Has not had Tdap- encouraged. Flowsheet Date 10/28/2020 Jim Score Blood Edema Fundus Height Fundus Units Glucose Ketones Leukocytes Nitrite Labor Signs Protein Cervic Dilation Cervic Effacement Cervic Station Type Weight in lbs Pre/Post Dialysis Refused BP Diastolic BP Location Tested BP Systolic BP Type Fetus Heart Rate Present Fetus Movement Comments Flowsheet Date 10/28/2020 Jim Score Blood Edema Fundus Height Fundus Units Glucose Ketones Leukocytes Nitrite Labor Signs Protein Cervic Dilation Cervic Effacement Cervic Station Type Weight in lbs Pre/Post Dialysis Refused BP Diastolic BP Location Tested BP Systolic BP Type Fetus Heart Rate Present Fetus Movement Comments Flowsheet Date 11/01/2020 Jim Score Blood Edema Fundus Height Fundus Units Glucose Ketones Leukocytes Nitrite Labor Signs Protein Cervic Dilation Cervic Effacement Cervic Station Type Weight in lbs Pre/Post Dialysis Refused BP Diastolic BP Location Tested BP Systolic BP Type Fetus Heart Rate Present Fetus Movement Comments Flowsheet Date 11/01/2020 Jim Score Blood Edema Fundus Height Fundus Units Glucose Ketones Leukocytes Nitrite Labor Signs Protein Cervic Dilation Cervic Effacement Cervic Station neg trace trace Type Weight in lbs Pre/Post Dialysis Refused Weight 176.223949655698 BP Diastolic BP Location Tested BP Systolic BP Type 96 138 90 140 Fetus Heart Rate Present A 130 Fetus Movement A Yes Comments Doing ok. Good FM. NST nonre active today, BPP 02/26. Awaiting MFM report from last week. Will get Tdap today. Precautions given. BP stable. Flowsheet Date 11/01/2020 Jim Score Blood Edema Fundus Height Fundus Units Glucose Ketones Leukocytes Nitrite Labor Signs Protein Cervic Dilation Cervic Effacement Cervic Station Type Weight in lbs Pre/Post Dialysis Refused BP Diastolic BP Location Tested BP Systolic BP Type Fetus Heart Rate Present Fetus Movement Comments Flowsheet Date 11/04/2020 Jim Score Blood Edema Fundus Height Fundus Units Glucose Ketones Leukocytes Nitrite Labor Signs Protein Cervic Dilation Cervic Effacement Cervic Station Type Weight in lbs Pre/Post Dialysis Refused BP Diastolic BP Location Tested BP Systolic BP Type Fetus Heart Rate Present Fetus Movement Comments Flowsheet Date 11/04/2020 Jim Score Blood Edema Fundus Height Fundus Units Glucose Ketones Leukocytes Nitrite Labor Signs Protein Cervic Dilation Cervic Effacement Cervic Station Type Weight in lbs Pre/Post Dialysis Refused BP Diastolic BP Location Tested BP Systolic BP Type Fetus Heart Rate Present Fetus Movement Comments Flowsheet Date 11/04/2020 Jim Score Blood Edema Fundus Height Fundus Units Glucose Ketones Leukocytes Nitrite Labor Signs Protein Cervic Dilation Cervic Effacement Cervic Station Type Weight in lbs Pre/Post Dialysis Refused BP Diastolic BP Location Tested BP Systolic BP Type Fetus Heart Rate Present Fetus Movement Comments Flowsheet Date 11/08/2020 Jim Score Blood Edema Fundus Height Fundus Units Glucose Ketones Leukocytes Nitrite Labor Signs Protein Cervic Dilation Cervic Effacement Cervic Station Type Weight in lbs Pre/Post Dialysis Refused BP Diastolic BP Location Tested BP Systolic BP Type Fetus Heart Rate Present Fetus Movement Comments Flowsheet Date 11/08/2020 Jim Score Blood Edema Fundus Height Fundus Units Glucose Ketones Leukocytes Nitrite Labor Signs Protein Cervic Dilation Cervic Effacement Cervic Station neg none 33 trace Type Weight in lbs Pre/Post Dialysis Refused Weight 177.851013975618 BP Diastolic BP Location Tested BP Systolic BP Type 93 147 90 142 Fetus Heart Rate Present A 135 Fetus Movement A Yes Comments Doing well. No contractions. No h/a, v/d, or e/p. Chronic hypertension. PIH precautions given. Flowsheet Date 11/15/2020 Jim Score Blood Edema Fundus Height Fundus Units Glucose Ketones Leukocytes Nitrite Labor Signs Protein Cervic Dilation Cervic Effacement Cervic Station none 34 trace Type Weight in lbs Pre/Post Dialysis Refused Weight 175.236360414459 BP Diastolic BP Location Tested BP Systolic BP Type 90 131 Fetus Heart Rate Present A 140 Fetus Movement A Yes Comments Visit per Z. Due SNM. NST an d U/S at M today. Pt states the testing was all normal. Flowsheet Date 11/22/2020 Jim Score Blood Edema Fundus Height Fundus Units Glucose Ketones Leukocytes Nitrite Labor Signs Protein Cervic Dilation Cervic Effacement Cervic Station neg none 33 trace 1cm 30% -3 Type Weight in lbs Pre/Post Dialysis Refused Weight 180.947633967523 BP Diastolic BP Location Tested BP Systolic BP Type 85 125 Fetus Heart Rate Present Fetus Movement A Yes Comments Doing well. MOnitoring at M. They recommend delivery at 37 weeks for cHTN and SGA. Will schedule. GBS done and discussed. Good FM. Flowsheet Date 12/06/2020 Jim Score Blood Edema Fundus Height Fundus Units Glucose Ketones Leukocytes Nitrite Labor Signs Protein Cervic Dilation Cervic Effacement Cervic Station Type Weight in lbs Pre/Post Dialysis Refused Weight 165.464343111107 BP Diastolic BP Location Tested BP Systolic BP Type 100 139 87 123 Fetus Heart Rate Present Fetus Movement Comments Menstrual History Last Menstrual Date Menses Monthly On Bcp Conception Prior Menses Frequency Hcg Plus Date Menarche Onset Age 0803/11/2020 Genetic Screening And Infection History Question Response Note Mental Retardation/Autism false Patient's Age Will Be 35 Years Or Older At Estim ated Date of Delivery false Thalassemia (Sinhala, Lao, Mediterranean, Or Background): MCV < 80 false Neural Tube Defect (Meningomyelocele, Spina Bifi da, Or Anencephaly) false Congenital Heart Defect false Down Syndrome false Luciano-Sachs (eg, Christian, Cajun, Malay-East Timorese) f alse Haroon Disease false Sickle Cell Disease Or Trait () false Hemophilia Or Other Blood Disorders false Muscular Dystrophy false Cystic Fibrosis false [place]'s Ch[place] false Intellectual Disability/Autism false If Yes, Was Person Tested For Fragile X? false Other Inherited Genetic Or Chromosomal Disorder false Maternal Metabolic Disorder (eg, Type 1 Diabetes , PKU) false Patient Or Baby's Father Had A Child With Defects Not Listed Above false Recurrent Loss, Or A Stillbirth false Medications (including Suppl ements, Vitamins, Herbs, OTC Drugs), Illicit/Recreational Drugs, Alcohol false If Yes, Agent(s) And Strength/Dosage false Any Other Genetic History false Live With Someone With TB Or Exposed To TB false Patient Or Partner Has History Of Genital Herpes false Rash Or Viral Illness Since Last Menstrual Perio d false History Of STD, Gonorrhea, Chlamydia, HPV, Syphi lis false Other Infection History false History of HIV false History of Hepatitis false Prior GBS-infected child false Hemoglobinopathy Or Carrier false Other Structural Defect false Recent Travel History Outside of Country false Delivery Information Delivery Date Delivery Type Labor Anesthesia Weeks Gestation Incision Type Labor Labor Length Hrs Delivered By Post Complications Tubal Sterilization Discharge Date Comments 1 Induce d Regional-Ep idural 37 false PanyikMargarita CNM CHTN & SGA Discharge Information Feeding Method Contraceptive Method Maternal HG B and HCT Levels Ob Episode Information Episode Created Date Number of Fetuses Patient Bloodtype Patient rh Status Prepregnancy Weight lbs Domestic Partner Domestic Partner Phone Father Name Body Painter Status 08/10/19 21 1 CLOSED Fetus Data First Name Last Name Admitted to NICU Weight (g) Sex Living Outcome Pediatric Complications Fetus ID Race Codes Race Delivery Type 3033.16 [id number] M Full Term 7299 Vacuum Assisted Vaginal Delivery Berna Calculation BERNA Calculation Method Initial Berna Date Initial Exam Date Initial Exam Provider Initial Ultrasound Date Last Menstrual Period Date Ultra Sound Weeks Gestation Conception by IVF Embryo Age at Transfer Date of Transfer 0 Eighteen To Twenty Week Berna Update Ultra Sound Date Fundal Height At Umbil Quickening Date Ultra Sound Latest Weeks Gestation Final Berna Confirmed By Final Berna Confirmed Date Final Berna Date Ultra Sound Latest Days Gestation 0 0 Menstrual History Last Menstrual Date Menses Monthly On Bcp Conception Prior Menses Frequency Hcg Plus Date Menarche Onset Age Delivery Information Delivery Date Delivery Type Labor Anesthesia Weeks Gestation Incision Type Labor Labor Length Hrs Delivered By Post Complications Tubal Sterilization Discharge Date Comments 6 37.5 false Baby given up for adoption Discharge Information Feeding Method Contraceptive Method Maternal HG B and HCT Levels
--- OUTSIDE RECORDS SUMMARY | 2024-07-02 09:52 | XMS_ITS | Data Portability ---
Author Organization [facility] Address [address] [place] [address] Care Team Providers Care Human Resources Professional Name Role Phone ALLIE HAWKINS Draw Frame Tender LV SOLIS Primary Care Provider Assessment Encounter Date Assessment Date Assessment LastModified by Organization Details LastModified Time 08/10/2021 08/10/2021 Pt has an 8-month-old baby Melba.. Pt is a non-smoker. 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 [email or web address] Not available 09/04/2022 14:49:57 12/11/2022 12/11/2022 Pt is normotensive without antihypertensiv es. Pt was advised to obtain a blood pressure machine to check her BP from time to time. [email or web address] Not available 12/13/2022 07:41:04 Plan of Treatment Reminders Order Date Submit Date Provider Last Modified By Organization Details Last Modified Time Details Appointments None recorded. Lab HbA1c (hemoglob in A1c), blood 2022 023 [email or web address] In-Office Order, Internal Use Only DO Not Attach Compendium DO Not Attach Compendium, Do Not Delete/merge, [id number] 15:19:07 test, urine 2022 023 [email or web address] In-Office Order, Internal Use Only DO Not Attach Compendium DO Not Attach Compendium, Do Not Delete/merge, [id number] 3 14:49:35 urinalysi s, dipstick 2022 023 [email or web address] In-Office Order, Internal Use Only DO Not Attach Compendium DO Not Attach Compendium, Do Not Delete/merge, [id number] 14:49:35 Referral None recorded. Procedures None recorded. Surgeries None recorded. Imaging None recorded. Medication Orders ceftriaxo ne 250 mg solution for injection 2019 020 [email or web address] Not available 11:59:47 lisinopri l 10 mg tablet 2021 022 [email or web address] Not available 12:53:36 fluconazo le 150 mg tablet 2022 023 [email or web address] Not available 16:14:33 labetalol 200 mg tablet 2022 023 [email or web address] Not available 16:50:46 Patient TargetsNo targets recorded. Patient Instructions Encounter Date Encounter Id Patient Instructions Last Modified By Organization Details Last Modified Time 08/10/2021 [id number] learning about high blood pressure [email or web address] Not available 08/10/2021 12:35:28 09/04/2022 [id number] A healthy lifestyle: care instructions [email or web address] Not available 09/04/2022 22:32:33 candidiasis: car e instructions [email or web address] Not available 09/04/2022 14:53:18 learning about high blood pressure Not available 09/04/2022 14:51:13 01/13/2024 [id number] learning about high blood pressure [email or web address] Not available 01/13/2024 16:48:22 dash diet: care instructions [email or web address] Not available 01/13/2024 16:48:22 high blood pressure: care instructions [email or web address] Not available 01/13/2024 16:48:22 Plan of care has been discussed with patient including expected therapeutic benefits and potential side effects of prescribed medication and treatments. Patient verbalizes understanding and is in agreement with the plan of care. Patient was instructed to keep all scheduled appointments and contact the clinic for any additional problems. [email or web address] Not available 01/13/2024 16:47:40 Reason for Referral None Reported. Results Created Date Observation Date Name Description Value Unit Range Abnormal Flag Note LastModifiedBy Organization Detail LastModifiedTime 07/14/2020 urina lysis , dipst ick Leukocytes Small Not Available In-Offi ce Order Internal Use Only DO Not Attach Compendium DO Not Attach Compendium, Do Not Delete/merge, [id number] 07/07/2020 08:40:14 07/14/2020 urina lysis , dipst ick Nitrite positi ve Not Available In-Office Order Internal Use Only DO Not Attach Compendium DO Not Attach Compendium, Do Not Delete/merge, [id number] 07/07/2020 08:40:14 07/14/2020 urina lysis , dipst ick Urobilinogen .2 Not Available In-Of fice Order Internal Use Only DO Not Attach Compendium DO Not Attach Compendium, Do Not Delete/merge, 07/07/2020 08:40:14 07/14/2020 urina lysis , dipst ick Protein 100 Not Available In-Office Order Internal Use Only DO Not Attach Compendium DO Not Attach Compendium, Do Not Delete/merge, 07/07/2020 08:40:14 07/14/2020 urina lysis , dipst ick pH 6.0 Not Available In-Office Order Internal Use Only DO Not Attach Compendium DO Not Attach Compendium, Do Not Delete/merge, [id number] 07/07/2020 08:40:14 07/14/2020 urina lysis , dipst ick Blood Large Not Available In-Office Order Internal Use Only DO Not Attach Compendium DO Not Attach Compendium, Do Not Delete/merge, 07/07/2020 08:40:14 07/14/2020 urina lysis , dipst ick Specific Henderson 1.030 Not Available In-Off ice Order Internal Use Only DO Not Attach Compendium DO Not Attach Compendium, Do Not Delete/merge, [id number] 07/07/2020 08:40:14 07/14/2020 urina lysis , dipst ick Ketone Negati ve Not Available In-Office Order Internal Use Only DO Not Attach Compendium DO Not Attach Compendium, Do Not Delete/merge, 07/07/2020 08:40:14 07/14/2020 urina lysis , dipst ick Bilirubin Negati ve Not Available In-Office Order Internal Use Only DO Not Attach Compendium DO Not Attach Compendium, Do Not Delete/merge, [id number] 07/07/2020 08:40:14 07/14/2020 urina lysis , dipst ick Glucose Negati ve Not Available In-Office Order Internal Use Only DO Not Attach Compendium DO Not Attach Compendium, Do Not Delete/merge, [id number] 07/07/2020 08:40:14 07/14/2020 urina lysis , dipst ick Appearance Cloudy Not Available In-Offi ce Order Internal Use Only DO Not Attach Compendium DO Not Attach Compendium, Do Not Delete/merge, [id number] 07/07/2020 08:40:14 07/14/2020 urina lysis , dipst ick Color Dark Yellow Not Available In-Office Order Internal Use Only DO Not Attach Compendium DO Not Attach Compendium, Do Not Delete/merge, [id number] 07/07/2020 08:40:14 06/21/20 20 06/22/2020 prote in, total , 24-ho ur urine protein,tota l,urine 27.6 mg/dL not estab. Not Available [facility] ([facility]) [address], [place], [address], 06/22/2020 11:12:02 06/21/20 20 06/22/2020 prote in, total , 24-ho ur urine prot,24HR calculated 193 mg/24 _HR 30-150 above high normal Not Available [facility] ([facility]) [address] [place], [address], 06/22/2020 11:12:02 06/21/20 20 06/21/2020 urina lysis , dipst ick Leukocytes Modera te Not Available In-Office Order Internal Use Only DO Not Attach Compendium DO Not Attach Compendium, Do Not Delete/merge, [id number] 06/21/2020 15:05:57 06/21/20 20 06/21/2020 urina lysis , dipst ick Nitrite negati ve Not Available In-Office Order Internal Use Only DO Not Attach Compendium DO Not Attach Compendium, Do Not Delete/merge, [id number] 06/21/2020 15:05:57 06/21/20 20 06/21/2020 urina lysis , dipst ick Urobilinogen 1 Not Available In-Of fice Order Internal Use Only DO Not Attach Compendium DO Not Attach Compendium, Do Not Delete/merge, [id number] 06/21/2020 15:05:57 06/21/20 20 06/21/2020 urina lysis , dipst ick Protein 30 Not Available In-Office Order Internal Use Only DO Not Attach Compendium DO Not Attach Compendium, Do Not Delete/merge, 06/21/2020 15:05:57 06/21/20 20 06/21/2020 urina lysis , dipst ick pH 7.0 Not Available In-Office Order Internal Use Only DO Not Attach Compendium DO Not Attach Compendium, Do Not Delete/merge, 06/21/2020 15:05:57 06/21/20 20 06/21/2020 urina lysis , dipst ick Blood Non-He molyze d: Trace Not Available In-Office Order Internal Use Only DO Not Attach Compendium DO Not Attach Compendium, Do Not Delete/merge, 06/21/2020 15:05:57 06/21/20 20 06/21/2020 urina lysis , dipst ick Specific Henderson 1.025 Not Available In-Off ice Order Internal Use Only DO Not Attach Compendium DO Not Attach Compendium, Do Not Delete/merge, 06/21/2020 15:05:57 06/21/20 20 06/21/2020 urina lysis , dipst ick Ketone Modera te Not Available In-Office Order Internal Use Only DO Not Attach Compendium DO Not Attach Compendium, Do Not Delete/merge, 06/21/2020 15:05:57 06/21/20 20 06/21/2020 urina lysis , dipst ick Bilirubin Negati ve Not Available In-Office Order Internal Use Only DO Not Attach Compendium DO Not Attach Compendium, Do Not Delete/merge, 06/21/2020 15:05:57 06/21/20 20 06/21/2020 urina lysis , dipst ick Glucose Negati ve Not Available In-Office Order Internal Use Only DO Not Attach Compendium DO Not Attach Compendium, Do Not Delete/merge, [id number] 06/21/2020 15:05:57 06/21/20 20 06/21/2020 urina lysis , dipst ick Appearance Cloudy Not Available In-Offi ce Order Internal Use Only DO Not Attach Compendium DO Not Attach Compendium, Do Not Delete/merge, [id number] 06/21/2020 15:05:57 06/21/20 20 06/21/2020 urina lysis , dipst ick Color Yellow Not Available In-Office Order Internal Use Only DO Not Attach Compendium DO Not Attach Compendium, Do Not Delete/merge, [id number] 06/21/2020 15:05:57 07/14/20 20 07/17/2020 cultu re, urine urine culture, routine Final report abnormal Not Available [facility] ([facility]) [address], [place], [address], 07/17/2020 16:08:13 07/14/20 20 07/17/2020 cultu re, urine result 1 Klebsi sirena pneumo niae abnormal Great er than 100,0 00 colon y formi ng units per mL Cefaz gab <=4 ug/mL Cefaz gab with an RITA <=16 predi cts susce ptibi lity to the oral agent s cefac jenni, cefdi wilfrido, cefpo doxim e, cefpr ozil, cefur oxime , cepha lexin , and lorac arbef when used for thera py of uncom plica raciel urina ry tract infec tions due to E. coli, Klebs iella pneum oniae , and Prote us mirab ilis. Not Available [facility] ([facility]) [address], [place], [address], 07/17/2020 16:08:13 07/14/20 20 07/17/2020 cultu re, urine antimicrobia l susceptibili ty Commen t S = Susce ptibl e; I = Inter media te; R = Resis tant P = Posit amy; N = Negat amy MICS are expre ssed in micro grams per mL Antib iotic RSLT# 1 RSLT# 2 RSLT# 3 RSLT# 4 Amoxi cilli n/Cla vulan ic Acid S Ampic illin R Cefep jeevan S Ceftr iaxon e S Cefur oxime S Cipro floxa zahida S Ertap enem S Genta micin S Imipe nem S Levof loxac in S Merop enem S Nitro furan toin R Piper acill in/Ta zobac richardson S Tetra cycli ne S Tobra mycin S Trime thopr im/Dacosta lfa S Not Available [facility] ([facility]) [address], [place], [address], 07/17/2020 16:08:13 07/14/20 20 07/14/2020 afp (alph a-fet oprot ein) panel , mater nal scree n, serum comments: Evelia torres , Ph.D. , [facility] Dire tor Refer ences : Avail able Upon Reque st. Multi ples Of Media n Cutof fs Abbre viati on Defin ition s For AFP [place] tions IDD- Insul in Dep Diabe leatha Singl eton 2.5 Black 2.8 OSBR- Open Spina Bifid a IDD 2.0 Twins 4.5 Risk DSR Cutof f 1:270 DSR- Down Syndr ome Risk T18 Cutof f 1:100 T18- Triso my 18 Down Syndr ome and Triso my 18 scree diana are consi dered Inves tigat ional For furth er inqui summer conta ct [facility] Ang[facility] Servi ami at [phone]- GENE. Not Available [facility] ([facility]) [address], [place], [address], 08/01/2020 16:11:11 07/14/20 20 07/21/2020 afp (alph a-fet oprot ein) panel , mater nal scree n, serum [age] Not Available [facility] ([facility]) [address], [place], [address], 08/01/2020 16:11:11 07/14/20 20 07/21/2020 afp (alph a-fet oprot ein) panel , mater nal scree n, serum race Caucas sharon Not Available [facility] ([facility]) [address] [place], [address], 08/01/2020 16:11:11 07/14/20 20 07/21/2020 afp (alph a-fet oprot ein) panel , mater nal scree n, serum weight 159 lbs Not Available [facility] ([facility]) [address] [place], [address], 08/01/2020 16:11:11 07/14/20 20 07/21/2020 afp (alph a-fet oprot ein) panel , mater nal scree n, serum AFP value 79.9 NG/mL Not Available [facility] ([facility]) [address] [place], [address], 08/01/2020 16:11:11 07/14/20 20 07/21/2020 afp (alph a-fet oprot ein) panel , mater nal scree n, serum HCG value 650099 mIU/m L Not Available [facility] ([facility]) [address] [place], [address], 08/01/2020 16:11:11 07/14/20 20 07/21/2020 afp (alph a-fet oprot ein) panel , mater nal scree n, serum UE3 value 0.55 NG/mL Not Available [facility] ([facility]) [address] [place], [address], 08/01/2020 16:11:11 07/14/20 20 07/21/2020 afp (alph a-fet oprot ein) panel , mater nal scree n, serum SILVA value 538.43 pg/mL Not Available [facility] ([facility]) [address] [place], [address], 08/01/2020 16:11:11 07/14/20 20 07/21/2020 afp (alph a-fet oprot ein) panel , mater nal scree n, serum DSR (by age) 1 in 1165 Not Available [facility] ([facility]) [address], [place], [address], 08/01/2020 16:11:11 07/14/20 20 07/21/2020 afp (alph a-fet oprot ein) panel , mater nal scree n, serum T18 (by age) 1:4538 Not Available [facility] ([facility]) [address], [place], [address], 08/01/2020 16:11:11 07/14/20 20 08/01/2020 afp (alph a-fet oprot ein) panel , mater nal scree n, serum results Commen t The MOM and risk facto rs of this repor t have been modif ied based on new infor matio n suppl ied to us by the clien t or their desig nated repre senta tive. The Gesta sandee l Age Based On was santillan ed from As provi ded to BERNA 12/19 . The Gesta sandee l Age was santillan ed from Not provi ded. to 17.4. The Insul in Depen dent Diabe leatha was santillan ed from Not provi ded. to No. The Multi ple Gesta tion was santillan ed from Not provi ded. to No. Not Available [facility] ([facility]) [address], [place], [address], 08/01/2020 16:11:11 07/14/20 20 08/01/2020 afp (alph a-fet oprot ein) panel , mater nal scree n, serum test results: *Scree n Negati ve* Not Available [facility] ([facility]) [address], [place], [address], 08/01/2020 16:11:11 07/14/20 20 08/01/2020 afp (alph a-fet oprot ein) panel , mater nal scree n, serum gest. age on collection date 17.4 weeks Not Available [facility] ([facility]) [address] [place], [address], 08/01/2020 16:11:11 07/14/20 20 08/01/2020 afp (alph a-fet oprot ein) panel , mater nal scree n, serum gestat. age based on BERNA 12/19 Not Available [facility] ([facility]) [address] [place], [address], 08/01/2020 16:11:11 07/14/20 20 08/01/2020 afp (alph a-fet oprot ein) panel , mater nal scree n, serum insulin dep diabetes No Not Available [facility] ([facility]) [address] [place], [address], 08/01/2020 16:11:11 07/14/20 20 08/01/2020 afp (alph a-fet oprot ein) panel , mater nal scree n, serum multiple gestation No Not Available [facility] ([facility]) [address] [place], [address], 08/01/2020 16:11:11 07/14/20 20 08/01/2020 afp (alph a-fet oprot ein) panel , mater nal scree n, serum AFP MOM 2.07 Not Available [facility] ([facility]) [address] [place], [address], 08/01/2020 16:11:11 07/14/20 20 08/01/2020 afp (alph a-fet oprot ein) panel , mater nal scree n, serum HCG MOM 4.21 Not Available [facility] ([facility]) [address] [place], [address], 08/01/2020 16:11:11 07/14/20 20 08/01/2020 afp (alph a-fet oprot ein) panel , mater nal scree n, serum UE3 MOM 0.43 Not Available [facility] ([facility]) [address] [place], [address], 08/01/2020 16:11:11 07/14/20 20 08/01/2020 afp (alph a-fet oprot ein) panel , mater nal scree n, serum SILVA MOM 3.45 Not Available [facility] ([facility]) [address] [place], [address], 08/01/2020 16:11:11 07/14/20 20 08/01/2020 afp (alph a-fet oprot ein) panel , mater nal scree n, serum OSBR risk 1 in 690 Not Available [facility] ([facility]) [address] [place], [address], 08/01/2020 16:11:11 07/14/20 20 08/01/2020 afp (alph a-fet oprot ein) panel , mater nal scree n, serum DSR (second trimester) 1 in 464 Not Available [facility] ([facility]) [address] [place], [address], 08/01/2020 16:11:11 07/14/20 20 08/01/2020 afp (alph a-fet oprot ein) panel , mater nal scree n, serum T18 risk Not increa sed Not Available [facility] ([facility]) [address] [place], [address], 08/01/2020 16:11:11 07/14/20 20 08/01/2020 afp (alph a-fet oprot ein) panel , mater nal scree n, serum interpretati on Commen t Inter preta tion: Scree n Negat amy This resul t is scree n negat amy for OSB, Down Syndr ome and Triso my 18. The AFP MoM and patie nt speci fic risks calcu lated are based on the gesta sandee l age and the clini timothy infor matio n provi ded. This test can ident jim up to 80% of open neura l tube defec ts. Close d neura l tube defec ts and some open defec ts may not be detec raciel by this test. The combi natio n of mater nal age, AFP, hCG, uE3, and SILVA ident ifies 75-80 % of Down Syndr ome. The combi natio n of mater nal age, AFP, hCG and uE3 ident ifies 60% of Triso my 19 pregn ancie s. The Ameri can Colle ge of Obste trici ans and Gynec ologi sts recom mends amnio cente sis be offer ed to women age 35 and older . This is a corre cted repor t. The previ ously repor raciel resul t(s) were: Test Resul t Date First Repor raciel ===== ===== ===== ===== ===== ===== ===== ==== Updat es repor raciel on: 08/01 12:31 PM AFP MOM VALUE 07/21 12:49 PM See inter preta tion. SILVA MOM VALUE 07/21 12:49 PM See inter preta tion. DSR (SECO ND TRIME STER) 1 IN 07/21 12:49 PM See inter preta tion. HCG MOM 07/21 12:49 PM See inter preta tion. . 07/21 12:49 PM Inter preta tion: An inter preta tion CANNO T be provi ded for this patie nt becau se neces edgar patie nt infor matio n was not provi ded (one or more of: gesta snadee l age, weigh t, or patie nt age). Pleas e call us with new clini timothy infor matio n. OSBR RISK 1 IN 07/21 12:49 PM See inter preta tion. TEST RESUL TS: SCREE N 07/21 12:49 PM See inter preta tion. T18 RISK 1 IN 07/21 12:49 PM See inter preta tion. UE3 MOM 07/21 12:49 PM See inter preta tion. Recal culat ions are not recom moises d when gesta sandee l datin g by LMP and ultra sound are withi n 10 days. Not Available [facility] ([facility]) [address], [place], [address], 08/01/2020 16:11:11 07/14/20 20 08/01/2020 afp (alph a-fet oprot ein) panel , mater nal scree n, serum pdf . Not Available [facility] ([facility]) [address], [place], [address], 08/01/2020 16:11:11 09/04/19 23 09/04/2022 HbA1c (hemo globi n A1c), blood HbA1c 4.9 Not Available In-Office Order Internal Use Only DO Not Attach Compendium DO Not Attach Compendium, Do Not Delete/merge, [id number] 09/04/2022 14:53:49 09/04/19 23 09/04/2022 pregn farhat test, urine HCG negati ve Not Available In-Office Order Internal Use Only DO Not Attach Compendium DO Not Attach Compendium, Do Not Delete/merge, [id number] 09/04/2022 14:23:59 09/04/19 23 09/04/2022 urina lysis , dipst ick Leukocytes Small Not Available In-Offi ce Order Internal Use Only DO Not Attach Compendium DO Not Attach Compendium, Do Not Delete/merge, [id number] 09/04/2022 14:24:13 09/04/1909/04/2022 urina lysis , dipst ick Nitrite negati ve Not Available In-Office Order Internal Use Only DO Not Attach Compendium DO Not Attach Compendium, Do Not Delete/merge, [id number] 09/04/2022 14:24:13 09/04/19 23 09/04/2022 urina lysis , dipst ick Urobilinogen .2 Not Available In-Of fice Order Internal Use Only DO Not Attach Compendium DO Not Attach Compendium, Do Not Delete/merge, 09/04/2022 14:24:13 09/04/19 23 09/04/2022 urina lysis , dipst ick Protein Negati ve Not Available In-Office Order Internal Use Only DO Not Attach Compendium DO Not Attach Compendium, Do Not Delete/merge, 09/04/2022 14:24:13 09/04/19 23 09/04/2022 urina lysis , dipst ick pH 5.5 Not Available In-Office Order Internal Use Only DO Not Attach Compendium DO Not Attach Compendium, Do Not Delete/merge, 09/04/2022 14:24:13 09/04/19 23 09/04/2022 urina lysis , dipst ick Blood Hemoly zed: Trace Not Available In-Office Order Internal Use Only DO Not Attach Compendium DO Not Attach Compendium, Do Not Delete/merge, 09/04/2022 14:24:13 09/04/19 23 09/04/2022 urina lysis , dipst ick Specific Henderson 1.030 Not Available In-Off ice Order Internal Use Only DO Not Attach Compendium DO Not Attach Compendium, Do Not Delete/merge, 09/04/2022 14:24:13 09/04/19 23 09/04/2022 urina lysis , dipst ick Ketone Negati ve Not Available In-Office Order Internal Use Only DO Not Attach Compendium DO Not Attach Compendium, Do Not Delete/merge, 09/04/2022 14:24:13 09/04/19 23 09/04/2022 urina lysis , dipst ick Bilirubin Negati ve Not Available In-Office Order Internal Use Only DO Not Attach Compendium DO Not Attach Compendium, Do Not Delete/merge, 09/04/2022 14:24:13 09/04/19 23 09/04/2022 urina lysis , dipst ick Glucose Negati ve Not Available In-Office Order Internal Use Only DO Not Attach Compendium DO Not Attach Compendium, Do Not Delete/merge, [id number] 09/04/2022 14:24:13 09/04/19 23 09/04/2022 urina lysis , dipst ick Appearance Slight ly Cloudy Not Available In-Office Order Internal Use Only DO Not Attach Compendium DO Not Attach Compendium, Do Not Delete/merge, [id number] 09/04/2022 14:24:13 09/04/19 23 09/04/2022 urina lysis , dipst ick Color Yellow Not Available In-Office Order Internal Use Only DO Not Attach Compendium DO Not Attach Compendium, Do Not Delete/merge, [id number] 09/04/2022 14:24:13 06/29/20 20 06/29/2020 US, obste tric, 1st trime ster No observ ation record ed. [facility] (Radiology) [address] [place], [address], 08/03/2020 11:32:25 07/05/20 20 07/02/2020 emerg ency dept. visit * No observ ation record ed. BARCODE Not Available 2019 10:10:43 07/27/19 21 07/27/2020 US, obste tric, 2nd trime ster No observ ation record ed. [facility] (Radiology) [address] [place], [address], 08/03/2020 11:32:16 Result Notes None recorded. Problems Name Problem SNOMED Code Status Onset Date Resolution Date Notes Provider Name and Address Organization Details Recorded Time Pregnanc y 51800915 Completed 201908/01/2020 ALISHA Camargo, YOMI BERG 12:23:53 Late entry into care 465806767 Completed Pt educated on importanc e of care. ALISHA Camargo [place] [facility] 12:23:48 Hyperten sive disorder 42049534 Completed Likely chronic HTN. Pt reports strong family history. Labs ordered. Pt started on Nifedipin e. Pt educated on medicatio n and side effects. Pt educated on warning signs and notified when to call office. Pt given ER precautio ns. Home BP cuff. Pt to follow up in 3 week to see OBGYN. Will refer to [facility] for CO managemen t. ALISHA [place] - [facility] 1 12:23:48 Thyroid stimulat ing hormone level below referenc e range 219775907 Completed TSH slightly low but t4 normal. will repeat at next visit. ALISHA [place] [facility] 1 12:23:48 Low lying placenta 955596920 Completed Pelvic rest Darling Rivera LPN [place], [place] - [facility] 1 12:23:48 Contact dermatit is caused by urushiol from [facility] 554762539 Active SUNIL [place] - [facility] 8 11:37:17 Idiopath ic scoliosi s 157488412 Active SUNIL [place] [facility] 8 11:37:18 Disorder characte rized by back pain 503126222 Active SUNIL [place] [facility] 8 11:37:18 Injury of ankle 373599114 Active SUNIL [place] [facility] 8 11:37:18 Venereal disease screenin g Active patient had unprotect ed sex, mom wants test and std screening also control if preg test negative SUNIL [place] [facility] 8 11:37:17 Gonorrhe a 17562527 [place] SUNIL [place] [facility] 8 11:37:17 Anemia 188965632 [place] SUN[place] [facility] 8 11:37:18 Anemia 083115479 Completed Tish [place]anes[place] - [facility] 6 17:05:42 Generali zed headache 750934739 [place] SUN[place] [facility] 8 11:37:18 Migraine 13159500 [place] SUN[place] [facility] 8 11:37:18 Acute sinusiti s 57405825 [place] SUNIL [place] [facility] 8 11:37:18 Acne 20641868 Active SUNIL Kendrick, [place] - [facility] 8 11:37:18 Problem Notes None recorded. Procedures Surgical History None recorded. Imaging Results Imaging Date Name Status LastModified by Organiz ation Details LastModified Time 06/29/2020 US, obstetric, 1st trimester completed [facility] (Radiology) [address] [place] [address], [address], 08/03/2020 11:32:25 07/02/2020 emergency dept. visit* completed BARCODE Information not available 07/05/2020 10:10:43 07/27/2020 US, obstetric, 2nd trimester completed [facility] (Radiology) [address] [place], [address], 08/03/2020 11:32:16 Procedure Notes None recorded. Medical Equipment None Reported. Allergies Allergen ID Allergen Name Allergen Category Reaction Reaction Severity Criticality Documentation Date Start Date Code Code System Note Provider Name and Address Organization Details Recorded Time 850227 labetalol medicatio n dizziness headache lighthead edness Not available Not available Not available unabletoasse 01/13/2024 6185 RxNorm Aneta Palacios MA null, [place] - [facility] 4 16:16:22 Medications Name Sig Start Date Stop Date Status Note LastModified by Organization Details LastModified Time prednisone 10 mg tablet TAKE 6 TABS ON DAY 1, 5 TABS ON DAY 2, 4 TABS ON DAY 3, 3 TABS ON DAY 4, 2 TABS DAY 5, 1 TAB DAY 6 09/04 completed Not Available Not Available Not Available doxycycline hyclate 100 mg capsule TAKE 1 CAPSULE BY MOUTH EVERY 12 HOURS ON THE FIRST DAY THEN EVERY DAY UNTIL GONE 05/24 completed Not Available Not Available Not Available Vitamin B-6 25 mg tablet Take 1 tablet every 6 hours by oral route for 30 days. 05/24 completed Not Available Not Available Not Available labetalol 200 mg tablet TAKE 1 TABLET BY MOUTH TWICE A DAY 12/11 completed Not Available Not Available Not Available Stool Softener 100 mg capsule TAKE ONE CAPSULE BY MOUTH TWICE A DAY 05/24 completed Not Available Not Available Not Available Iron (ferrous sulfate) 325 mg (65 mg iron) tablet Take 1 tablet 3 times a day by oral route for 30 days. 05/24 completed Not Available Not Available Not Available ibuprofen 800 mg tablet TAKE 1 TABLET BY MOUTH 3 TIMES A DAY NEEDED FOR PAIN 01/12 completed Not Available Not Available Not Available fluconazole 150 mg tablet TAKE 1 TABLET BY MOUTH NOW 12/11 completed Not Available Not Available Not Available benzonatate 200 mg capsule 06/13 completed Not Available Not Available Not Available tretinoin 0.025 % topical cream Apply by topical route to affected areas qhs. May have to apply every other night if irritatio n occurs. 05/24 completed Not Available Not Available Not Available ceftriaxone 250 mg solution for injection Take 250 mg by injection route for 1 day. 08/10 completed Not Available Not Available Not Available naproxen 250 mg tablet 05/24 completed Not Available Not Available Not Available bacitracin 500 unit/gram topical ointment 06/14 completed Not Available Not Available Not Available metronidazo le 500 mg tablet Take 1 tablet twice a day by oral route for 7 days. 08/10 completed Not Available Not Available Not Available triamcinolo ne acetonide 0.1 % topical cream Apply by topical route to affected areas BID for up to 2 weeks. 05/24 completed Not Available Not Available Not Available Vitamin tablet Take 1 tablet every day by oral route for 30 days. 05/24 completed Not Available Not Available Not Available cephalexin 500 mg capsule Take 1 capsule twice a day by oral route for 7 days. 08/10 completed Not Available Not Available Not Available nortriptyli ne 10 mg capsule 06/13 completed Not Available Not Available Not Available lisinopril 10 mg tablet TAKE 1 TABLET BY MOUTH EVERY DAY 12/10 completed Not Available Not Available Not Available norgestimat e-ethinyl estradiol 0.18 mg/0.215mg/ 0.25mg-35 mcg(28)tabl et 10/05 completed Not Available Not Available Not Available montelukast 10 mg tablet 06/13 completed Not Available Not Available Not Available lisinopril 5 mg tablet TAKE 1 TABLET BY MOUTH EVERY DAY active Not Available Not Available No t Available albuterol sulfate HFA 90 mcg/actuati on aerosol inhaler INHALE 2 PUFFS 4 TIMES DAILY NEEDED FOR SHORTNESS OF BREATH OR WHEEZING active Not Available Not Available No t Available norethindro ne (contracept amy) 0.35 mg tablet active Not Available Not Available No t Available nifedipine ER 60 mg tablet,exte nded release TAKE 1 TABLET BY MOUTH EVERY DAY 08/10 completed Not Available Not Available Not Available fluticasone propionate 50 mcg/actuati on nasal spray,suspe nsion SPRAY 1 SPRAY INTO EACH NOSTRIL EVERY DAY 06/13 completed Not Available Not Available Not Available Unisom (doxylamine ) 25 mg tablet Take 1 tablet every 6 hours by oral route for 30 days. 05/24 completed Not Available Not Available Not Available doxycycline hyclate 100 mg tablet Take 1 tablet q 12 hours on first day, then 1 tablet once a day. 05/24 completed Not Available Not Available Not Available loratadine 10 mg tablet Take 1 tablet every day by oral route. 06/13 completed Not Available Not Available Not Available naproxen 500 mg tablet 06/13 completed Not Available Not Available Not Available amoxicillin 875 mg-potassiu m clavulanate 125 mg tablet TAKE 1 TABLET BY MOUTH EVERY 12 HOURS 01/12 completed Not Available Not Available Not Available Vitamin 27 mg iron-0.8 mg tablet 08/10 completed Not Available Not Available Not Available Lice Killing (permethrin ) 1 % topical liquid Apply 1 mL every day by topical route. 05/24 completed Not Available Not Available Not Available azithromyci n 500 mg tablet Take 2 tablets every day by oral route for 1 day. 06/13 completed Not Available Not Available Not Available Sprintec (28) 0.25 mg-35 mcg tablet TAKE 1 TABLET(S) EVERY DAY BY ORAL ROUTE. 10/05 completed Not Available Not Available Not Available Junel FE 08/10 (28) 1 mg-20 mcg (21)/75 mg (7) tablet TAKE 1 TABLET BY MOUTH EVERY DAY 06/14 completed Not Available Not Available Not Available nitrofurant oin monohydrate /macrocryst als 100 mg capsule Take 1 capsule every 12 hours by oral route for 5 days. 08/10 completed Not Available Not Available Not Available chlorhexidi ne gluconate 0.12 % mouthwash SWISH AND SPIT 15MLS TO AFFECTED MUCOSAL AREA TWICE DAILY 01/12 completed Not Available Not Available Not Available Epiduo 0.1 %-2.5 % topical gel Apply by topical route to affected areas qhs. 05/24 completed Not Available Not Available Not Available Trustex Latex Condom Take 1 device by miscell. route. 06/13 completed Not Available Not Available Not Available Tri-Lo-Spri ntec 0.18 mg/0.215 mg/0.25 mg-25 mcg tablet take 1 tablet(s) day by oral route as directed for 28 days 08/02 completed Not Available Not Available Not Available Plus (calcium carbonate) 27 mg iron-1 mg tablet 05/24 completed Not Available Not Available Not Available 28 mg iron-800 mcg tablet Take 1 tablet every day by oral route. 08/10 completed Not Available Not Available Not Available Epiduo 0.1 %-2.5 % topical gel with pump APPLY TOPICALLY TO AFFECTED AREAS AT BEDTIME 10/05 completed Not Available Not Available Not Available Slynd 4 mg (28) tablet TAKE 1 TABLET BY MOUTH EVERY DAY 09/04 completed Not Available Not Available Not Available Vitals Date Recorded Body height Provider Name an d Address Organization Details Last Updated DateTime 07/19/2020 154.94 cm Darling Rivera LPN [place] - [facility] 07/19/2020 10:14:36 Date Recorded Body height Body mass index (BMI) Percentile per age and sex Body mass index (BMI) Body weight Oxygen saturation Oxygen saturation in Arterial blood by Pulse oximetry Heart rate Respiratory rate Body temperature Systolic blood pressure Diastolic blood pressure Provider Name and Address Organization Details Last Updated DateTime 2 154.94 cm 95 % 32.6 kg/m2 97615.6 9 g 99 % 99 % 92 /min 16 /min 96.9 [degF] 106 mm[Hg] 80 mm[Hg] Aneta Palacios MA [facility] 2 11:58:56 Date Recorded Body height Body mass index (BMI) Body weight Oxygen saturation Oxygen saturation in Arterial blood by Pulse oximetry Heart rate Respiratory rate Body temperature Systolic blood pressure Diastolic blood pressure Provider Name and Address Organization Details Last Updated DateTime 3 154.94 cm 34.9 kg/m2 67166.1 5 g 99 % 99 % 97 /min 16 /min 97.5 [degF] 140 mm[Hg] 98 mm[Hg] Aneta Palacios MA [facility] 3 14:21:20 Date Recorded Body height Body mass index (BMI) Body weight Body temperature Respiratory rate Oxygen saturation Oxygen saturation in Arterial blood by Pulse oximetry Heart rate Provider Name and Address Organization Details Last Updated DateTime 3 154.94 cm 35 kg/m2 10430.3 4 g 98.2 [degF] 16 /min 100 % 100 % 97 /min Nicolasa Samuels MA [facility] 3 16:16:52 Date Recorded Systolic blood pressure Diastolic blood pressure Provider Name and Address Organization Details Last Updated DateTime 12/11/2022 130 mm[Hg] 85 mm[Hg] Lv Solis MD Attn: [address]ing[address] [place], [address], [facility] 12/11/2022 16:50:26 Date Recorded Body height Body mass index (BMI) Body weight Oxygen saturation Oxygen saturation in Arterial blood by Pulse oximetry Heart rate Respiratory rate Body temperature Systolic blood pressure Diastolic blood pressure Provider Name and Address Organization Details Last Updated DateTime 4 154.94 cm 32.9 kg/m2 97226.8 2 g 99 % 99 % 78 /min 16 /min 95.9 [degF] 127 mm[Hg] 87 mm[Hg] Aneta Palacios MA [facility] 4 16:22:14 Social History Question Answer Notes LastModified by Organizat ion Details LastModified Time Tobacco Smoking Status Never Smoker Jennifer Modi MA null, [facility] 08/02/2014 11:18:16 Do You Have An Advance Directive? No Information not available 01/13/2024 What Is Your Level Of Alcohol Consumption? None Information not available 01/13/2024 Animal Exposure? Yes 1 Dog [email or web address] Informa tion not available 05/24/2016 Do You Wear A Helmet When Biking? No Information not available 08/02/2014 Are You Blind Or Do You Have Difficulty Seeing? Yes Glasses Information not available 01/13/2024 Are You Or Have You Been Involved With Bullying? No Information not available 08/02/2014 What Is Your Level Of Caffeine Consumption? Moderate Pt. Drinks 1-32 Oz Of Soda A Day, And 2 Cups Of Tea A Day Information not available 01/13/2024 What Type Of Motor And Generator Brush Cutter Do You Use? None Information not available 08/02/2014 In The 14 Days Before Symptom Onset, Have You Had Close Contact With A Laboratory-confi rmed COVID-19 While That Case Was Ill? No Information not available 01/13/2024 In The 14 Days Before Symptom Onset, Have You Had Close Contact With A Person Who Is Under Investigation For COVID-19 While That Person Was Ill? No Information not available 01/13/2024 Have You Been To An Area Known To Be High Risk For COVID-19? 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 No Information not available 01/13/2024 What Type Of Diet Are You Following? REGULAR Information not available 08/02/2014 Do You Or Have You Ever Used E-cigarettes Or Vape? Never Used Electronic Cigarettes Information not available 06/13/2020 What Is Your Occupation? [employer] Information not available 01/13/2024 Have There Been Any Changes To Your Family Or Social Situation? No Information not available 08/02/2014 What Is The Fluoride Status Of Your Home? Fluoridated [email or web address] Information not available 05/24/2016 Are There Any Guns Present In Your Home? No Information not available 08/02/2014 What Is Your Home Situation? Mother Mom, Step Dad [email or web address] Information not available 05/24/2016 Do You Use Insect Repellent Routinely? Yes Information not available 08/02/2014 Car Seat Type Or Seat Belt? Seat Belt Information not available 08/02/2014 Parent Involvement? Both Parents Involved Information not available 08/02/2014 Riding In Car Front Seat? Yes Information not available 08/02/2014 What Was The Date Of Your Most Recent Tobacco Screening? 01/13/2024 Information not available 01/13/2024 How Many Children Do You Have? 1 Information not available 01/13/2024 What Is Your Parents' Marital Status? Unmarried Information not available 08/02/2014 Pool Exposure Yes Information not available 08/02/2014 Do You Use Protection During Sex? Always Information not available 01/13/2024 What Is Your Relationship Status? Single Information not available 01/13/2024 What Is The Name Of Your School? [employer] Information not available 02/03/2015 Do You Use Your Seat Belt Or Car Seat Routinely? Yes Information not available 01/13/2024 Are You Sexually Active? Yes Information not available 01/13/2024 Do You Have Any Siblings? 2 Sisters Information not available 08/02/2014 Do You Have Smoke And Carbon Monoxide Detectors In Your Home? Yes Information not available 08/02/2014 Are You Passively Exposed To Smoke? Yes Mom And Step Dad [email or web address] Information not available 05/24/2016 Do You Or Have You Ever Used Smokeless Tobacco? Never Used Smokeless Tobacco Information not available 06/13/2020 How Much Tobacco Do You Smoke? No Information not available 06/13/2020 What Types Of Sporting Activities Do You Participate In? None [email or web address] Information not available 05/24/2016 Do You Feel Stressed (tense, Restless, Nervous, Or Anxious, Or Unable To Sleep At Night)? [id number] Information not available 01/13/2024 Do You Use Any Illicit Or Recreational Drugs? No Information not available 01/13/2024 Do You Use Sunscreen Routinely? Yes Information not available 08/02/2014 Has Tobacco Cessation Counseling Been Provided? No Information not available 01/13/2024 On What Date Was Tobacco Cessation Counseling Provided? 01/13/2024 Information not available 01/13/2024 Year In School 13 [email or web address] [email or web address] not available 02/28/2018 Do You Or Have You Ever Used Any Other Forms Of Tobacco Or Nicotine? No Information not available 09/04/2022 Sex: Female Functional Status Question Answer Note LastModified by Organizat ion Details LastModified Time Are you able to care for yourself? Yes Information not available 01/13/2024 What is your exercise level? Occasional Information not available 08/02/2014 Mental Status None recorded. Family History Relationship Description Onset Age of this Age Resolved Age Notes LastModified by Organization Details LastModified Time Unspecified Relation Diabetes mellitus [email or web address] Not available 2015 15:39:29 Father No current problems or disability [email or web address] Not available 04/14 16:12:26 Father Hypertensive disorder [email or web address] Not available 08/10 12:02:04 Mother No current problems or disability [email or web address] Not available 04/14 16:12:26 Mother Hypertensive disorder [email or web address] Not available 08/10 12:02:04 Maternal Grandfather Hypertensive disorder [email or web address] Not available 08/10 12:02:04 Maternal Grandmother Hypertensive disorder [email or web address] Not available 08/10 12:02:04 Paternal Grandfather Hypertensive disorder [email or web address] Not available 08/10 12:02:04 Paternal Grandmother Hypertensive disorder [email or web address] Not available 08/10 12:02:04 Maternal Aunt Diabetes mellitus [email or web address] Not available 09/04 14:22:19 Notes:Diabetes on Dad's side of family, No new reported 01/13/24 Medical History Condition Response Other N High Blood Pressure N Blood Diseases N Breast Cancer N Lung Disease N Depression N Blood Clots N Developmental or Behavioral Disorders N Breast Problem N Premature N Anesthesia Complications N Headaches/Migraines N Anxiety Disorder N Muscle, Joint, or Bone Problems N Vision or Eye Problems N Head Injury/Concussion N Infertility N Polyps N Acid Reflux (GERD) N Cancer N ADHD N Endometriosis N Bladder or Kidney Problems N High Cholesterol N Liver Disease N Headaches N Ear or Hearing Problems N Thyroid Problems N Kidney or Bladder Problems N GI Problems N Acne N Eating Disorder N Skin Problems N Anemia N Constipation N Diabetes N Ovarian Cancer N Bedwetting N Blood Transfusions N Heart Problems/Murmur N Seizures/Epilepsy N Abuse/Domestic Violence N Asthma N Allergies N Hepatitis N Heart Disease N Pre-Eclampsia N Chicken Pox N Autism Spectrum Disorder (ASD) N Osteoporosis N Gynecological History Statement/Question Response Flow Light Date of LMP 01/02/2024 STIs/STDs Yes HPV Vaccine Y Duration of Flow (days) 4 Age at Menarche 13 Current Control Method BCPs Frequency of Cycle (Q days) 28 Sexually Active? Y Menses Monthly Y Sexual Problems? N LMP Definite Obstetrics History GPAL:G 2 P 1 0 0 1 Type Value Full Term 1 Living 1 Total 2 Immunizations Vaccine Type Date Status Note Provider Nam e and Address Organization Details Recorded Time Influenza, live, quadrivalent, intranasal 5 completed Not Available [facility] 08/08/2019 02:31:46 meningococcal MCV4P 8 completed Not Available [facility] 08/08/2019 02:43:07 meningococcal B, OMV 8 completed Not Available [facility] 08/08/2019 02:35:53 meningococcal B, OMV 8 completed Not Available [facility] 08/08/2019 02:44:14 DTaP 6 [place] SUN[place], [place] [facility] 05/28/2018 11:37:28 DTaP 1 [place] [facility] 05/28/2018 11:37:29 DTaP 1 [place] [facility] 05/28/2018 11:37:29 DTaP 3 completed Odalys [place] [facility] 05/28/2018 11:37:29 DTaP 2 completed [place]al[place] [facility] 05/28/2018 11:37:28 IPV 1 completed [place]alys [place] [facility] 05/28/2018 11:37:29 IPV 1 completed Odalys [place] [facility] 05/28/2018 11:37:28 IPV 6 completed [place]al[place] [facility] 05/28/2018 11:37:28 IPV 3 completed Odal[place] [facility] 05/28/2018 11:37:29 Hib, unspecified formulation 1 completed [place]al[place] [facility] 05/28/2018 11:37:28 Hib, unspecified formulation 1 completed [place]alys [place] [facility] 05/28/2018 11:37:28 Hib, unspecified formulation 3 completed Odalys [place] [facility] 05/28/2018 11:37:28 Hib, unspecified formulation 2 completed [place]al[place] [facility] 05/28/2018 11:37:28 Hep B, adolescent or pediatric 1 completed [place] [facility] 05/28/2018 11:37:29 Hep B, adolescent or pediatric 1 completed Odalys [place] [facility] 05/28/2018 11:37:28 Hep B, adolescent or pediatric 2 completed [place]al[place] [facility] 05/28/2018 11:37:28 MMR 5 completed Odalys Chand[place]SUNIL [place] [facility] 05/28/2018 11:37:28 MMR 2 completed Odalys Chand[place]SUNIL [place] [facility] 05/28/2018 11:37:28 Tdap 1 completed [place] [facility] 05/28/2018 11:37:29 varicella 8 completed [place] [facility] 05/28/2018 11:37:29 varicella 2 [place] [facility] 05/28/2018 11:37:29 pneumococcal conjugate PCV 7 1 completed [place] [facility] 05/28/2018 11:37:29 pneumococcal conjugate PCV 7 1 [place] [facility] 05/28/2018 11:37:29 pneumococcal conjugate PCV 7 3 completed [place] [facility] 05/28/2018 11:37:28 pneumococcal conjugate PCV 7 2 [place] [facility] 05/28/2018 11:37:28 Hep A, ped/adol, 2 dose 6 [place] [facility] 05/28/2018 11:37:28 Hep A, ped/adol, 2 dose 5 [place] [facility] 05/28/2018 11:37:29 influenza, unspecified formulation 8 [place] [facility] 05/28/2018 11:37:28 influenza, unspecified formulation 7 [place] [facility] 05/28/2018 11:37:28 influenza, unspecified formulation 3 [place] [facility] 05/28/2018 11:37:29 influenza, unspecified formulation 1 [place] [facility] 05/28/2018 11:37:29 HPV, quadrivalent 1 [place] [facility] 05/28/2018 11:37:28 HPV, quadrivalent 1 [place] [facility] 05/28/2018 11:37:28 HPV, quadrivalent 2 [place] [facility] 05/28/2018 11:37:29 meningococcal MCV4, unspecified formulation 2 completed Odalys Hawley MA [facility], [facility] 05/28/2018 11:37:28 Influenza, split virus, quadrivalent, PF 2 completed Aneta Palacios MA [facility], [facility] 08/11/2021 14:18:49 Influenza, live, quadrivalent, intranasal 5 completed Not Available [facility] 08/08/2019 02:32:30 Past Encounters Encounter ID Performer Location Encounter Start Date Encounter Closed Date Diagnosis/Indication Diagnosis SNOMED-CT Code Diagnosis ICD10 Code [id number] [facility] (Peds) [address] [place] [address] 08/02/2014 11:06:06 08/02/2014 17:29:30 Well child [id number] Acne [id number] Brittany Padron MD [facility] (Peds) [address] [place] [address] 08/31/2014 10:35:51 08/31/2014 18:00:17 Acne [id number] Brittany Padron MD [facility] (Peds) [address] [place] [address] 12/20/2014 11:37:12 12/20/2014 18:19:27 Acne [id number] Contact de rmatitis caused by urushiol from [facility] destiny [id number] [facility] (Peds) [address] [place] [address] 02/03/2015 10:22:41 02/03/2015 14:51:03 Well child [id number] Idiopathic scoliosis 203 794688 Acne [id number] [facility] [address] [place] [address] 04/14/2015 14:55:09 04/15/2015 08:20:26 Injury of ankle [id number] MD Indio Abel [facility] ([facility]) [address] [place] [address] 07/05/2015 14:29:28 07/06/2015 09:11:16 Venereal disease screening 226043929 Z11.3 Contraception care 87574 5005 Z30.40 test positive 973522039 Z32.01 [id number] Tish Manning ([place] [address]) [address] [place] [address] 07/19/2015 15:55:21 07/19/2015 17:45:33 Anemia 642318690 D64.9 11240378 Z33.1 Teenage [id number] 001 O09.619 [id number] Tish Manning ([place] [address]) [address] [place] [address] 08/02/2015 15:42:25 08/02/2015 22:39:03 Normal 13208495 Z34.93 Teenage 271954 001 O09.619 [id number] Tish Manning ([place] [address]) [address] [place] [address] 08/16/2015 15:50:22 08/16/2015 16:49:03 Normal 10288066 Z34.93 [id number] Tish Manning ([place] [address]) [address] [place] [address] 08/23/2015 15:58:48 08/24/2015 09:13:59 Normal 45313232 Z34.93 Teenage [id number] 001 O09.619 [id number] Tish Manning ([place] [address]) [address] [place] [address] 09/13/2015 16:36:29 09/14/2015 01:36:13 care 606178350 Z39.2 [id number] MD Indio Abel ([place] [address]) [address] [place] [address] 10/06/2015 16:02:33 10/06/2015 19:04:01 Generalized headache 371505557 R51 [id number] MD Indio Abel ([place] [address]) [address] [place] [address] 10/13/2015 16:06:36 10/13/2015 18:12:13 Migraine 58812294 G43.909 [id number] MD Indio Abel ([place] [address]) [address] [place] [address] 11/10/2015 15:57:02 11/24/2015 21:05:27 Migraine 72143244 G43.909 Contraception care 84950 5005 Z30.40 [id number] Leno Phillips MD [facility] ([facility]) [address] [place] [address] 01/05/2016 15:29:38 01/05/2016 18:19:25 Acute sinusitis 46060721 J01.90 [id number] Leno Phillips MD [facility] (Peds) [address] [place] [address] 05/24/2016 11:43:24 05/24/2016 18:08:09 Well child 128290214 Z00.129 Generalized headache 162 354486 R51 [id number] MD Indio Abel ([place] [address]) [address] [place] [address] 07/06/2016 14:48:32 07/06/2016 15:48:37 Venereal disease screening 281139776 Z11.3 Contraception care 75954 5005 Z30.40 [id number] MD Indio Abel ([place] [address]) [address] [place] [address] 10/05/2016 15:13:48 10/05/2016 16:33:28 Vaginal discharge 673037093 N89.8 Venereal d isease screening 269355009 Z11.3 [id number] MD Indio Abel ([place] [address]) [address] [place] [address] 10/09/2016 17:04:47 10/09/2016 17:27:43 Bacterial vaginosis 484048614 N76.0 A59.9 Candidiasis of vagina 72 058238 B37.3 Infection by Trichomonas 13454819 A59.9 [id number] MD Indio Abel ([place] [address]) [address] [place] [address] 11/06/2016 16:10:04 11/06/2016 19:17:47 Venereal disease screening 853166028 Z11.3 [id number] MD Indio Abel ([facility]) [address] [place] [address] 08/02/2017 14:32:04 08/02/2017 15:33:37 Venereal disease screening 332823687 Z11.3 Contraception care 40548 5005 Z30.40 [id number] MD Indio Abel ([facility]) [address] [place] [address] 08/13/2017 15:55:20 08/13/2017 17:24:48 Chlamydial infection 023892130 A74.9 Venereal d isease screening 464850286 Z11.3 [id number] MD Indio Abel ([place] [address]) [address] [place] [address] 09/10/2017 16:02:54 09/11/2017 22:24:42 Venereal disease screening 835906176 Z11.3 [id number] [facility] [address] [place] [address] 02/28/2018 14:58:22 03/03/2018 13:21:04 Well child 017417980 Z00.110 [id number] Ifrah Ferrell RN [facility] (Peds) [address] [place] [address] 04/04/2018 15:11:18 04/07/2018 16:55:56 Active or passive immunization 055383044 Z23 [id number] Leno Phillips MD [facility] (Peds) [address] [place] [address] 04/14/2018 16:05:17 04/15/2018 12:51:33 Seasonal allergic rhinitis 386759109 J30.2 [id number] MD Indio Abel [address] [place] [address] 05/28/2018 11:28:48 05/28/2018 17:45:21 Irregular periods 82823739 N92.6 [id number] MD Indio Abel [address] [place] [address] 06/18/2018 09:58:55 06/18/2018 10:21:09 Contraception care 801331660 Z30.40 detection examination 64902771 Z32.00 [id number] ROSITA Amaral [address] [place] [address] 11/17/2018 11:33:20 11/17/2018 12:52:32 Mass of right breast 3632611789 7940714 N63.11 [id number] ROSITA Amaral [address] [place] [address] 06/17/2019 15:21:08 06/17/2019 16:25:28 At increased risk of sexually transmitted infection 383854069 Z20.2 Surveillan ce of oral contraception 470243046 Z30.41 Contraception care 46685 5005 Z30.40 [id number] ROSITA Amaral [address] [place] [address] 06/14/2020 14:59:47 06/15/2020 11:22:51 Routine care 141945569 Z34.81 Acute urin nyasia tract infection 675337079 N39.0 Vaginal discharge 497281 006 N89.8 Essential hypertension 68140449 I10 [id number] ROSITA Amaral [address] [place] [address] 06/21/2020 14:55:33 06/22/2020 10:05:36 Routine care 922990379 Z34.81 [id number] MD Indio Mccoy [address] [place] [address] 07/14/2020 09:04:03 07/19/2020 13:55:37 Routine care 748861844 Z34.82 Acute urin nyasia tract infection 677464936 N39.0 [id number] MD Indio Mccoy [address] [place] [address] 07/19/2020 09:46:34 07/21/2020 11:07:27 Urinary tract infectious disease 73201354 N39.0 [id number] MD Indio Can [address] [place] [address] 08/10/2021 11:24:04 08/11/2021 18:44:00 Influenza vaccine needed 3959657699 106 Z23 Essential hypertension 41649998 I10 [id number] MD Indio Can [address] [place] [address] 09/04/2022 13:54:06 09/10/2022 13:23:50 Obesity 745432752 E66.9 Irregular periods 517255 07 N92.6 Essential hypertension 93602507 I10 Candidal vulvovaginitis 52391349 B37.31 [id number] MD Indio Can [address] [place] [address] 12/11/2022 16:08:25 12/13/2022 08:42:58 Hypertension screening 181981941 Z13.6 [id number] [facility] Indio [address] [place] [address] 01/13/2024 16:06:04 01/28/2024 08:49:07 Essential hypertension 77058793 I10 Health Concerns Section Related Observation LastModified by Organization Detai ls LastModified Time None Recorded Concern Status LastModified by Organization Details LastModified Time None Recorded Advance Directives Directive N: Payers Encounter Date Sequence Insurance Name Policy Number Policy Lawson Covered Member ID Lawson Member ID Guarantor Name 07/19/2020 1 [employer] [facility] [place] (MEDICAID H[place]) [id number] Madiha Alvarez [id number] Madiha L Alvarez 08/10/2021 1 [facility] (MEDICAID HMO) [id number] Madiha Alvarez [id number] Madiha L Alvarez 09/04/2022 1 [facility] (MEDICAID HMO) [id number] Madiha Alvarez [id number] Madiha L Alvarez 12/11/2022 1 [employer] [facility] [place] [id number] Madiha Alvarez [id number] Madiha L Alvarez 01/13/2024 1 [facility] (MEDICAID HMO) [id number] Madiha Alvarez [id number] Madiha L Alvarez Notes Date Note Type Note Provider Name and Address Organization Details Recorded Time 08/10/2021 text/html Pt presents to o ur office for the first time. Lv Solis MD Attn: [address] [facility], [place], [address], [facility] 08/11/2021 13:58:04 09/04/2022 text/html As per intake note. Lv Solis MD Attn: Accounting[address] [facility], [place], [address], [facility] 09/09/2022 20:13:44 12/11/2022 text/html Pt presents for follow up to her blood pressure. She stopped the labetalol. She is no longer planning to conceive at this point. Lv Solis MD Attn: Accounting[address] [facility], [place], [address], [facility] 12/13/2022 07:41:22 01/13/2024 text/html Patient presents to the clinic for hypertension concerns. Patient is established with Dr. Solis for primary care. Patient's past medical history includes: anemia, idiopathic scoliosis, and migraines. Hypertension-BP today in clinic: 127/87mmHg (Goal <130/80)-Home BP readings: Patient reports her BP has been 120's-130's/80's-9 0's-Current therapy: Lisinopril 5mg daily-Renal function:Creatinin e 0.47 (06/14/20)GFR 144 (06/14/20)-Denies chest pain, shortness of breath, headaches, blurred vision, or heart palpitations LAUREL MURRAY- Attn: Accounting[address] [facility], [place], [address], [facility] 01/27/2024 06:40:56 OBGyn Episode Ob Episode Information Episode Created Date Number of Fetuses Patient Bloodtype Patient rh Status Prepregnancy Weight lbs Domestic Partner Domestic Partner Phone Father Name Campaign Management Specialist Status 06/13/20 20 1 O Positive Bradley De Leon CLOSED Fetus Data First Name Last Name Admitted to NICU Weight (g) Sex Living Outcome Pediatric Complications Fetus ID Race Codes Race Delivery Type [id number] Problems Problem Notes If boy, yes to circ. Undecid ed about epidural. Plans to bottle feed. PPBC undecided.gave first child up for adoption. Problem Name Start Date End Date Resolution Snomed Code Not e Late entry into care [id number] Pt educated on importance of care. Thyroid stimulating hormone level below reference range 328714492 TSH slightly low but t4 normal. will repeat at next visit. Low lying placenta 461410714 P elvic rest Hypertensive disorder 73738088 Likely chronic HTN. Pt reports strong family history. Labs ordered. Pt started on Nifedipine. Pt educated on medication and side effects. Pt educated on warning signs and notified when to call office. Pt given ER precautions. Home BP cuff. Pt to follow up in 3 week to see OBGYN. Will refer to MFM for CO management. Berna Calculation BERNA Calculation Method Initial Berna Date Initial Exam Date Initial Exam Provider Initial Ultrasound Date Last Menstrual Period Date Ultra Sound Weeks Gestation Conception by IVF Embryo Age at Transfer Date of Transfer 12/17/19 22 06/13/20 20 [email or web address] 06/29/2020 03/11/2020 15 Eighteen To Twenty Week Berna Update Ultra Sound Date Fundal Height At Umbil Quickening Date Ultra Sound Latest Weeks Gestation Final Berna Confirmed By Final Berna Confirmed Date Final Ebrna Date Ultra Sound Latest Days Gestation 07/27/19 21 19 [email or web address] 07/20/2020 12/17/19 21 0 Pre- Flowsheet Flowsheet Date 06/14/2020 Jim Score Blood Edema Fundus Height Fundus Units Glucose Ketones Leukocytes Nitrite Labor Signs Protein Cervic Dilation Cervic Effacement Cervic Station Type Weight in lbs Pre/Post Dialysis Refused With clothes 161.547171263872 BP Diastolic BP Location Tested BP Systolic BP Type 96 162 sitting 95 160 sitting Fetus Heart Rate Present A 155 Present Fetus Movement Comments Pt is here for new OB appoin tment. Pt denies any complaints. Pt educated on flu vaccine. Pt declined flu vaccine. Pt verbalized understanding of risks. PNV ordered and pt educated on importance PNV and care. BP elevated today after multiple checks. Likely chronic HTN. Pt reports strong family history. Labs ordered. Pt started on Nifedipine. Pt educated on medication and side effects. Pt educated on warning signs and notified when to call office. Pt given ER precautions. Home BP cuff. Pt to follow up in 1 week for BP check. Will refer to MFM for CO management.UA positive for nitrates. Pt treated for UTI. Pt educated on medication and pt educated on prevention of UTI. Urine culture sent. Pt educated on labs and care. Pt given OB US to completed within 1 week. Pt notified to call office if issues with scheduling. Pt notified to RTC in 1 week and call office if issues occur. Pt given ER precautions. Flowsheet Date 06/21/2020 Jim Score Blood Edema Fundus Height Fundus Units Glucose Ketones Leukocytes Nitrite Labor Signs Protein Cervic Dilation Cervic Effacement Cervic Station trace none none moderate none trace Type Weight in lbs Pre/Post Dialysis Refused With clothes 159.359878368231 BP Diastolic BP Location Tested BP Systolic BP Type 98 142 sitting Fetus Heart Rate Present A 155 Present Fetus Movement Comments Pt is here for one week foll ow up for BP check. Pt reports taking nifedipine as prescribed. PT reports she has been completing BP log at home and BP has been in the 130s/90s. Pt notified to continue home BP checks and call with abnormals. Pt reports taking antibiotic for UTI and still has a few days left. Pt denies any urinary symptoms. Pt submitted 24 hour urine today. Pt reports she has OB US scheduled on 06/29/20. Pt denies any complaints. UA showed moderate amount of ketones today. Pt reports she has not ate yet today because she has been busy and she slept in this morning. Pt reports she has food at home. PT denies any nausea or vomiting or lack of appetite. Pt educated on importance of good nutrition in and risks of elevated ketones in . Pt verbalized understanding. Pt educated on warning signs and notified when to call office. Pt notified to RTC in 3 weeks to see OBGYN and call office if issues occur. Pt has also been referred to [facility] and notified to follow up with them as well. Pt given ER precautions. Pt notified she will urine culture at next visit. Flowsheet Date 07/14/2020 Jim Score Blood Edema Fundus Height Fundus Units Glucose Ketones Leukocytes Nitrite Labor Signs Protein Cervic Dilation Cervic Effacement Cervic Station 3+ none none negative none 2+ Type Weight in lbs Pre/Post Dialysis Refused With clothes 158.407093748546 BP Diastolic BP Location Tested BP Systolic BP Type 80 130 sitting Fetus Heart Rate Present A 140's Present Fetus Movement A No Comments Patient denies any complaint s. Will not start antihypertensives unless blood pressure is greater than 150/90's. Will continue co-management with MFM. Quad screen today. Will schedule anatomy sonogram. UTI, will send in macrobid and urine culture. RTC in 4 weeks. Flowsheet Date 07/19/2020 Jim Score Blood Edema Fundus Height Fundus [...] Screening And Infection History Question Response Note Patient's Age Will Be 35 Years Or Older At Estim ated Date of Delivery false Thalassemia (Montenegrin, Italian, Mediterranean, Or Background): MCV < 80 false Neural Tube Defect (Meningomyelocele, Spina Bifi da, Or Anencephaly) false Congenital Heart Defect false Down Syndrome false Luciano-Sachs (eg, Religion, Cajun, Malay-Owen) f alse Haroon Disease false Sickle Cell Disease Or Trait () false Hemophilia Or Other Blood Disorders false Muscular Dystrophy false Cystic Fibrosis false Silverton's Chorea false Mental Retardation/Autism false Other Inherited Genetic Or Chromosomal Disorder [...] of Hepatitis false Prior GBS-infected child false Plans and Education First Trimester Discussed Date Discussion Item Discussion Note Discuss ed By 06/14/2020 Anticipated course of care [email or web address] 06/14/2020 Alcohol fernstrn 06/14/2020 Intimate partner violence fe rnstrn 06/14/2020 Environmental/work hazards f ernstrn 06/14/2020 Screening for aneuploidy caryn nstrn 06/14/2020 Nutrition counseling ; special diet; dietary precautions (mercury, listeriosis) fernstrn 06/14/2020 Childbirth classes/hospital facilities fernstrn 06/14/2020 HIV and other routine tests fernstrn 06/14/2020 Risk factors identif ied by history fernstrn 06/14/2020 Weight gain counseling [facility] 06/14/2020 Exercise fernstrn 06/14/2020 Teratogens fernstrn 06/14/2020 Use of any medicatio ns (including supplements, vitamins, herbs, or OTC drugs) fernstrn 06/14/2020 fernstrn 06/14/2020 Sexual activity fernstrn 06/14/2020 Tobacco/smoking cess ation counseling (ask, advise, assess, assist, and arrange) [facility]2020 Illicit/recreational drugs f ernstrn 06/14/2020 Dental care fernstrn 06/14/2020 Travel fernstrn 06/14/2020 Seat belt use fernstrn 06/14/2020 Indications for ultrasonography fernstrn 06/14/2020 Avoidance of saunas or hot tubs fernstrn 06/14/2020 Toxoplasmosis precautions (cats/raw meat) fertr Second Trimester Discussed Date Discussion Item Discussion Note Discuss ed By Third Trimester Discussed Date Discussion Item Discussion Note Discuss ed By Delivery Information Delivery Date Delivery Type Labor Anesthesia Weeks Gestation Incision Type Labor Labor Length Hrs Delivered By Post Complications Tubal Sterilization Discharge Date Comments afehrenbac her Discharge Information Feeding Method Contraceptive Method Maternal HG B and HCT Levels Ob Episode Information Episode Created Date Number of Fetuses Patient Bloodtype Patient rh Status Prepregnancy Weight lbs Domestic Partner Domestic Partner Phone Father Name Campaign Management Specialist Status 07/11/20 15 1 O Positive CLOSED Fetus Data First Name Last Name Admitted to NICU Weight (g) Sex Living Outcome Pediatric Complications Fetus ID Race Codes Race Delivery Type Madan valdes false 3033.39 65 M true Full Term [id number] White Low Vacuum Extration Problems Problem Notes Problem Name Start Date End Date Resolution Snomed Code Not e Anemia [id number] Berna Calculation BERNA Calculation Method Initial Berna Date Initial Exam Date Initial Exam Provider Initial Ultrasound Date Last Menstrual Period Date Ultra Sound Weeks Gestation Conception by IVF Embryo Age at Transfer Date of Transfer 09/15/19 17 07/11/20 16 [email or web address] 07/07/2015 12/08/2014 30 Eighteen To Twenty Week Berna Update Ultra Sound Date Fundal Height At Umbil Quickening Date Ultra Sound Latest Weeks Gestation Final Berna Confirmed By Final Berna Confirmed Date Final Berna Date Ultra Sound Latest Days Gestation 0 [email or web address] 07/11/2015 09/15/19 16 0 Pre-jethro Flowsheet Flowsheet Date 07/19/2015 Jim Score Blood Edema Fundus Height Fundus Units Glucose Ketones Leukocytes Nitrite Labor Signs Protein Cervic Dilation Cervic Effacement Cervic Station none 26 Type Weight in lbs Pre/Post Dialysis Refused BP Diastolic BP Location Tested BP Systolic BP Type 62 120 Fetus Heart Rate Present Fetus Movement Comments Patient measures small for d ates. Most likely size dates discrepancy is constitutional.Will order follow ultrasound for interval growth in 2 weeks. Patient is unsure if she has received the TDAP vaccine. Patient will contact her assurance associate to find out if she has infact received the vaccine. HENNY for gonorrhea infection next visit. Patient requests that she wants to attend home schooling. Flowsheet Date 08/02/2015 Jim Score Blood Edema Fundus Height Fundus Units Glucose Ketones Leukocytes Nitrite Labor Signs Protein Cervic Dilation Cervic Effacement Cervic Station 28 Type Weight in lbs Pre/Post Dialysis Refused BP Diastolic BP Location Tested BP Systolic BP Type Fetus Heart Rate Present A 136 Fetus Movement A Yes Comments Patient refers backache elina ral days ago. Patient does not have backache today. SFH appears small for dates. US for interval growth was ordered. Patient denies vaginal bleeding or leakage of fluid. Reports good movements. labor precautions were given. TDAP, GBS culture next visit . Flowsheet Date 08/16/2015 Jim Score Blood Edema Fundus Height Fundus Units Glucose Ketones Leukocytes Nitrite Labor Signs Protein Cervic Dilation Cervic Effacement Cervic Station 31 0cm 0% -2 Type Weight in lbs Pre/Post Dialysis Refused 132.380761648471 BP Diastolic BP Location Tested BP Systolic BP Type 64 110 Fetus Heart Rate Present A 142 Fetus Movement A Yes Comments Patient denies abdominal yessica n or contractions, denies vaginal bleeding or leakage of fluid. Reports good movements. labor precautions were given. GBS culture was taken. Will repeat US given concerns about size dates discrepancy. Flowsheet Date 08/23/2015 Jim Score Blood Edema Fundus Height Fundus Units Glucose Ketones Leukocytes Nitrite Labor Signs Protein Cervic Dilation Cervic Effacement Cervic Station neg none 33 none negative neg Type Weight in lbs Pre/Post Dialysis Refused 135.88451042491 BP Diastolic BP Location Tested BP Systolic BP Type 62 100 Fetus Heart Rate Present A 136 Fetus Movement A Yes Comments Patient refers occasional co ntractions, denies vaginal bleeding or leakage of fluid. Reports good movements. labor precautions were given. Patient was reminded of appointment for US for interval growth. Flowsheet Date 09/13/2015 Jim Score Blood Edema Fundus Height Fundus Units Glucose Ketones Leukocytes Nitrite Labor Signs Protein Cervic Dilation Cervic Effacement Cervic Station Type Weight in lbs Pre/Post Dialysis Refused 121.790304586014 BP Diastolic BP Location Tested BP Systolic BP Type 70 104 sitting Fetus Heart Rate Present Fetus Movement Comments Menstrual History Last Menstrual Date Menses Monthly On Bcp Conception Prior Menses Frequency Hcg Plus Date Menarche Onset Age 0512/08/2014 Delivery Information Delivery Date Delivery Type Labor Anesthesia Weeks Gestation Incision Type Labor Labor Length Hrs Delivered By Post Complications Tubal Sterilization Discharge Date Comments 6 [facility] 37.[address] [place] 09/01/2015 ild was given up for adoption. Discharge Information Feeding Method Contraceptive Method Maternal HG B and HCT Levels Bottle depo
[2024-07-02 10:43] VITALS: BP 139/93; PULSE 102; RESP 16; TEMP 37; O2SAT 100
[2024-07-02 10:50] LABS: EDSTREPNEGPOS1 Positive (Negative)
--- NOTE | 2024-07-02 11:55 | ED.URI ---
HPI - URI/Sore Throat General Chief Complaint: Upper Respiratory Infection Stated Complaint: Sore Throat/Fever/Vomiting Time Seen by Provider: 07/02/24 11:50 Source: patient, RN notes reviewed and old records reviewed Mode of arrival: ambulatory Limitations: no limitations History of Present Illness HPI Narrative: 24 year olf female who presents to [facility] care with complaints of fever highest 102F,vomiting and sore throat with lymph nodes swollen since Saturday.Patient reports no cough or any ear pain, denies any body aches or acute sinus congestion or drainage. Patient reports that she has been taking Tylenol and Ibuprofen for her pain and fever. MD elicited complaint: fever and sore throat Onset (ago): day(s) (2) Pain scale (0-10): 8 Able to tolerate fluids by mouth: Yes Treatments prior to arrival: acetaminophen and ibuprofen Related Data Home Medications ?Medication ?Instructions ?Recorded ?Confirmed ?Last Taken ?Type norethindrone (contraceptive) 0.35 0.35 mg PO DAILY 01/08/24 01/08/24 Unknown History mg tablet Allergies Allergy/AdvReac Type Severity Reaction Status Date / Time No Known Allergies Allergy Verified 07/02/24 10:41 Review of Systems Review of Systems: CONSTITUTIONAL: Reports malaise, chills, sweats, or fever. EYES: Denies visual changes, redness, or discharge. ENT: Reports no rhinorrhea, congestion, sinus pain, otalgia and positive for sore throat. CARDIOVASCULAR: Denies chest pain, palpitations, or edema. RESPIRATORY: Reports no cough.? Denies dyspnea. GASTROINTESTINAL: Denies abdominal pain, nausea, vomiting, diarrhea SKIN: Denies rash or itching. MUSCULOSKELETAL: Denies myalgia. NEUROLOGIC: Denies headache. All systems reviewed & are unremarkable except as noted in HPI and below PMFSH Past Medical History Medical History Bronchitis Dental abscess Hypertension Urinary tract infection Hypertension during Family History Family History Mother Hypertension Grandparent Hypertension Diabetes mellitus Social History Social History Smoking status: Former smoker Tobacco type: e-cigarettes/vaping Substance use: never Living arrangements: with family Gender identity (if verbalized by the patient): Female Spiritual care concerns: No Comments At time of signature, agree with nursing past medical, surgical, social and family history. There is no relevant family history pertinent to the presenting complaint Exam Narrative: GENERAL: Ill-appearing, well-nourished, and in no acute distress. HEAD: Normocephalic EYES: PERRLA, conjunctivae clear ENT: Nares clear, turbinates edematous and erythematous, clear discharge. Mucous membranes moist. TM pearly do with dull light reflex bilaterally; no tragal tenderness. Oropharynx erythematous without lesions. Tonsils red enlarged and with white exudate, no drooling, no hoarseness, no trismus, uvula midline.painful swallowing. NECK: Supple. positive tonsilar lymphadenopathy CHEST: Clear to auscultation, breath sounds equal. No wheezing, rhonchi, rales, or stridor. No respiratory distress, speaks in full sentences.SAO2 100% on room air HEART: Regular rate and rhythm. No murmur heard. SKIN: Warm, dry, no rash. NEURO: Alert and oriented x3. PSYCH: Normal mood and affect Course Course Emergency Course: Patient is aware of diagnosis, understands and agrees to treatment plan.? Anticipatory guidance given.? Patient agrees to follow-up as directed and is aware of reasons to seek care at the emergency department. Portions of this record may have been created with voice recognition software Level of Care: Express Care Visit Vital Signs Vital signs: Vital Signs Temperature 37.0 C 07/02/24 10:43 Pulse Rate 102 H 07/02/24 10:43 Respiratory Rate 16 07/02/24 10:43 Blood Pressure 139/93 H 07/02/24 10:43 Pulse Oximetry 100 07/02/24 10:43 Temperature 37.0 C 07/02/24 10:43 Pulse Rate 102 H 07/02/24 10:43 Respiratory Rate 16 07/02/24 10:43 Blood Pressure 139/93 H 07/02/24 10:43 Pulse Oximetry 100 07/02/24 10:43 Reviewed MDM - URI/Sore Throat MDM Narrative Medical decision making narrative: Differential diagnosis considered: Ortez virus, strep pharyngitis, allergic rhinitis, upper respiratory tract infection, sinusitis, rhinosinusitis, nasopharyngitis. viral pharyngitis, otitis media, otitis externa, pneumonia, bronchitis, viral cough syndrome, viral syndrome, and influenza.? Exam findings show no acute concerns or changes; patient is non-toxic appearing and is in no distress.? Patient is appropriate for outpatient treatment and follow-up. Differential Diagnosis Differential diagnosis: Likely upper respiratory infection, viral infection, pharyngitis and other (strep pharyngitis) Medical Records Attestation: I reviewed the patient's medical records. Lab Data Attestation: I reviewed the patient's lab results. Lab results narrative: strep screen positive Labs: Lab Results 07/02/24 Range/Units 10:48 POC Grp A Strep Screen Positive (Negative) Critical Care Time Critical Care Time Critical Care Time: No Discharge Plan Discharge Clinical Impression: Acute streptococcal pharyngitis Patient Disposition: Home, Self-Care Condition: Stable Instructions: Antibiotic Form, Strep Throat (ED) Additional Instructions: You tested positive for Group A strep . Take the entire course of antibiotics. Throw away your current toothbrush and begin using a new toothbrush in 48 hours in order to prevent re-infection. Sanitize all reusable water bottles . Do not share items with others. Salt water gargles may alleviate some of the throat discomfort. You can take Tylenol or ibuprofen per the package instructions for pain/fever. If your symptoms persist, change or worsen significantly before you can contact your personal physician then please, without delay, go to the emergency department for further evaluation. Follow-up with PCP in 7-10 days or sooner if needed Follow up with PCP soon in regards to your blood pressure which is elevated above threshold for referral. Blood pressure above 120/80 may indicate pre-hypertension. 139/93 Patient Language: Kyrgyz Prescriptions: New amoxicillin 500 mg capsule 1,000 mg PO Q12H 10 Days Qty: 40 0RF Rx Instructions: Take all doses No Action norethindrone (contraceptive) 0.35 mg tablet 0.35 mg PO DAILY Follow-up/Referrals: Kirby,Lv Richardson MD [Primary Care Provider] - Stand Alone Forms: Work/School Release IP Time of Disposition: 12:02 Quality Kim Coma Scale Eyes: Open Verbal: Oriented and Alert Motor: Follows Commands [place] Coma Total Score: 15
== END 2024-07-02 12:06 | disposition home or self-care (01) ==
PROVIDERS: Emergency Provider Registered Nurse; PCP Family Medicine
DX: J02.0 Streptococcal pharyngitis (principal); F17.290 Nicotine dependence, other tobacco product, uncomplicated
CPT/HCPCS: 87880; 99213; G0463

== ENCOUNTER 2025-04-19 10:16 | Emergency (ER) | payer OTHER, SELFPAY ==
[2025-04-19 10:21] VITALS: BP 120/75; PULSE 109; RESP 16; TEMP 36.3; O2SAT 100
--- NOTE | 2025-04-19 10:33 | ED.FEMALEGU ---
HPI - Female Genitourinary General Chief complaint: Urogenital-Female Stated complaint: Low Back Pain/Urinary Problem/Patient is Prenant Time Seen by Provider: 04/19/25 10:53 Source: patient and RN notes reviewed Mode of arrival: ambulatory Limitations: no limitations History of Present Illness HPI Narrative: 25-year-old female who is 27 weeks presents with concern for low back pain, urine frequency, only urinating small amounts, fever, body aches, chills, sweats, nausea without vomiting. She reports symptoms started 2 days ago. She has taken Tylenol MD elicited complaint: UTI Related Data Home Medications ?Medication ?Instructions ?Recorded ?Confirmed ?Last Taken ?Type aspirin 81 mg capsule 81 mg PO DAILY 04/19/25 04/19/25 Unknown History Allergies Allergy/AdvReac Type Severity Reaction Status Date / Time No Known Allergies Allergy Verified 04/19/25 10:28 Review of Systems Review of Systems: CONSTITUTIONAL: Reports malaise, chills, sweats, fever. CARDIOVASCULAR: Denies chest pain, palpitations, or edema. RESPIRATORY: Denies cough or dyspnea. GASTROINTESTINAL: Denies abdominal pain, vomiting, diarrhea. Reports nausea GENITOURINARY: Reports dysuria, frequency, urgency,. Denies flank pain or hematuria. SKIN: Denies rash or itching. MUSCULOSKELETAL: Reports low back pain, myalgia. All systems reviewed & are unremarkable except as noted in HPI and below PMFSH Past Medical History Medical History Bronchitis Dental abscess Hypertension Urinary tract infection Hypertension during Family History Family History Mother Hypertension Grandparent Hypertension Diabetes mellitus Social History Social History Smoking status: Former smoker Tobacco type: e-cigarettes/vaping Substance use: never Living arrangements: with family Gender identity (if verbalized by the patient): Female Spiritual care concerns: No Comments At time of signature, agree with nursing past medical, surgical, social and family history. There is no relevant family history pertinent to the presenting complaint Exam Narrative: GENERAL: Well-appearing, well-nourished, and in no acute distress. HEAD: Normocephalic. EYES: PERRLA, conjunctivae clear. NECK: Supple. No lymphadenopathy CHEST: Clear to auscultation. No respiratory distress. HEART: Regular rate and rhythm. SKIN: Warm, dry, no rash. NEURO: Alert and oriented x3. PSYCH: Normal mood and affect Course Course Emergency Course: Patient is aware of diagnosis, understands and agrees to treatment plan. Anticipatory guidance given. Patient agrees to follow-up as directed and is aware of reasons to seek care at the emergency department. Portions of this record may have been created with voice recognition software Level of Care: Express Care Visit Vital Signs Vital signs: Vital Signs Temperature 97.3 F L 04/19/25 10:21 Pulse Rate 109 H 04/19/25 10:21 Respiratory Rate 16 04/19/25 10:21 Blood Pressure 120/75 04/19/25 10:21 Pulse Oximetry 100 04/19/25 10:21 Oxygen Delivery Room Air 04/19/25 10:21 Temperature 97.3 F L 04/19/25 10:21 Pulse Rate 109 H 04/19/25 10:21 Respiratory Rate 16 04/19/25 10:21 Blood Pressure 120/75 04/19/25 10:21 Pulse Oximetry 100 04/19/25 10:21 Oxygen Delivery Room Air 04/19/25 10:21 Reviewed. MDM - Female Genitourinary MDM Narrative Medical decision making narrative: Exam findings and UA show no acute concerns or changes; patient is non-toxic appearing and is in no distress. Patient is appropriate for outpatient treatment and follow-up. Differential Diagnosis Differential diagnosis: Likely urinary tract infection and cystitis Critical Care Time Critical Care Time Critical Care Time: No Discharge Plan Discharge Clinical Impression: Urinary tract infection Patient Disposition: Home Condition: Stable Instructions: Antibiotic Form, Urinary Tract Infection in (ED) Additional Instructions: We will send a urine culture to the lab; if the culture identifies an organism that the prescribed antibiotic will not treat, you will receive a phone call from an urgent care staff member and an appropriate antibiotic will be prescribed. -Your symptoms should begin to improve within a day of starting antibiotics. But you should finish all the antibiotic pills you get. Otherwise your infection might come back. -Also recommend: increase water intake. Tylenol/ibuprofen as needed for pain or fever -Follow-up with your primary care provider for urine recheck or seek ER visit if condition worsens with high fever, nausea, vomiting and severe back pain. Patient Language: Pashto Prescriptions: New amoxicillin-pot clavulanate 875-125 mg tablet 1 tablet PO Q12H 10 Days Qty: 20 0RF No Action aspirin 81 mg capsule 81 mg PO DAILY Follow-up/Referrals: Kirby,Lv Richardson MD [Primary Care Provider] Time of Disposition: 10:57
[2025-04-19 10:38] LABS: EDUAAPPEAR Cloudy; EDUABILI 1+ (Negative); EDUABLOOD Trace (Negative); EDUACOLOR1 Dark; EDUAGLUCOSE Negative (Negative); EDUAKETONE 4+ (Negative); EDUALEUKO 1+ (Negative); EDUANITRATE Negative (Negative); EDUAPH 6.0; EDUAPROTEIN 2+ (Negative); EDUASPGRAVITY 1.030; EDUAUROBILI 2.0
--- OUTSIDE RECORDS SUMMARY | 2025-04-19 10:55 | XMS_ITS | Clinical Summary ---
Author Organization [facility] Address [address] [place] [address] Phone Care Team Providers Care Electro Optical Engineer Name Role Phone Lv Orr MD Primary Care Provider [phone] Allergies No known active allergies Medications lisinopril (PRINIVIL, ZESTRIL) 5 MG Tablet Take 1 Tablet by mouth daily. 30 Tablet 4 Active nitrofurantoin, monohydrate-mac rocrystal, (Macrobid) 100 MG CapsuleIndicati ons:Urinary Tract Infection Take 1 Capsule by mouth 2 times daily for 7 days. Indications: Urinary Tract Infection 14 Capsule 5 03/22/20 25 Encounters Date Type Department Care Team Description 03/15/2025 1:15 PM CDT - 03/15/2025 2:54 PM CDT Emergency [facility] Emergency [address] [place] [address] Esteban Florentino, NU Acute cystitis without hematuria Discharge Disposition: Discharged to home or Selfcare 03/15/2025 Travel from Last 3 Months Social History Tobacco Use Types Packs/Day Years Used Date Smoking Tobacco: Never Assessed Estimated Date of Delivery Comme nts Yes 07/17/2025 Sex and Gender Information Value Date Recorded Sex Assigned at Not on file Legal Sex Female 10:31 PM CDT Gender Identity Not on file Sexual Orientation Not on file Last Filed Vital Signs Vital Sign Reading Time Taken Comments Blood Pressure 132/87 03/15/2025 2:52 PM CDT Pulse 98 03/15/2025 2:52 PM CDT Temperature 37 C (98.6 F) 03/15/2025 2:52 PM CDT Respiratory Rate 18 03/15/2025 2:52 PM CDT Oxygen Saturation 100% 03/15/2025 2:52 PM CDT Inhaled Oxygen Concentration - - Weight 82.6 kg (182 lb) 03/15/2025 1:11 PM CDT Height 157.5 cm (5' 2) 03/15/2025 1:11 PM CDT Body Mass Index 33.29 03/15/2025 1:11 PM CDT Plan of Treatment Health Maintenance Due Date Last Done Comments Pap Smear 2022 Influenza Immunization (#1) 03/22/202503/23, 08/02/2014, 09/15/2012, Additional history exists SARS-COV-2 Immunization ( season) 2025 Respiratory Syncytial Virus (RSV) Immunization (Adult) (1 - Risk 1-dose series) 05/22/2025 Hepatitis C Virus (HCV) Screening 01/05/2026 01/05/2025 Hepatitis B Immunization Completed 002, 2001, 2001, Additional history exists Pneumococcal Immunization Combined Aged Out 05/11/2003, 2001, 2001, Additional history exists No longer eligible based on patient's age to complete this topic Measles Mumps Rubella (MMR) Immunization Discontinued 01/29/2005, 03/20/2002 Hepatitis A Immunization Discontinued 01/28/2006, 01/19 Polio (IPV) Immunization Discontinued 006, 05/11/2003, 2001, Additional history exists Varicella Immunization Discontinued 02/02/2008, 2001 Human Papillomavirus (HPV) Immunization Completed 08/01/2011, 04/02/2011, 01/29/2011 Meningococcal Immunization (ACWY) Completed 02/28/2018, 01/28/2012 Meningococcal B Immunization Discontinued 04/04/2018, 02/28/2018 DTaP/Tdap/Td Immunization Discontinued 2020, 01/29/2011, 01/28/2006, Additional history exists TdaP Immunization Completed 11/29/2020, 01/29/2011 Rotavirus Immunization Aged Out No lo nger eligible based on patient's age to complete this topic Procedures Procedure Name Priority Date/Time Associated Diagnosis Comments CBC WITH AUTO DIFFERENTIAL STAT 03/15/2025 1:51 PM CDT LIPASE STAT 03/15/2025 1:51 PM CDT CMP (COMPREHENSIVE METABOLIC PANEL) STAT 03/15/2025 1:51 PM CDT COMPLETE BLOOD COUNT (CBC) WITH DIFF STAT 03/15/2025 1:51 PM CDT POCT URINE HCG () STAT 03/15/2025 1:40 PM CDT URINALYSIS REFLEX IF INDICATED BY ABNORMAL RESULTS STAT 03/15/2025 1:40 PM CDT CULTURE, URINE STAT 03/15/2025 1:40 PM CDT from Last 3 Months Results * (ABNORMAL) CBC with Auto Differential (03/15/2025 1:51 PM CDT) WBC 10.47 4.00 - 12.00 10(3)/mcL 03/15/2025 2:01 PM CDT [facility] RBC 4.01 3.80 - 5.30 10(6)/mcL 03/15/2025 2:01 PM CDT [facility] HEMOGLOBIN (HGB) 11.6(L) 12.0 - 15.8 g/dL 03/15/2025 2:01 PM CDT [facility] HEMATOCRIT (HCT) 34.9(L) 36.0 - 47.0 % 03/15/2025 2:01 PM CDT [facility] MCV 87.0 82.0 - 96.0 fL 03/15/2025 2:01 PM CDT [facility] MCH 28.9 26.0 - 34.0 pg 03/15/2025 2:01 PM CDT [facility] MCHC 33.2 31.0 - 36.0 g/dL 03/15/2025 2:01 PM CDT [facility] PLATELET COUNT 211 140 - 440 10(3)/mcL 03/15/2025 2:01 PM [facility] RDW 14.1 11.8 - 15.5 % 03/15/2025 2:01 PM CDT [facility] MPV 9.2(L) 9.7 - 12.4 fL 03/15/2025 2:01 PM CDT [facility] NEUTROPHILS 72.5 47.0 - 73.0 % 03/15/2025 2:01 PM [facility] LYMPHOCYTES 15.9(L) 18.0 - 42.0 % 03/15/2025 2:01 PM [facility] MONOCYTES 10.0 4.0 - 12.0 % 03/15/2025 2:01 PM T [facility] EOSINOPHILS 0.3 0.0 - 5.0 % 03/15/2025 2:01 PM [facility] BASOPHILS 0.4 0.0 - 1.0 % 03/15/2025 2:01 PM [facility] IMMATURE GRANULOCYTE 0.9(H) 0.0 - 0.4 % 03/15/2025 2:01 PM [facility] Comment:Immature Granulocyte s includes Metamyelocytes, Myelocytes, and Promyelocytes. ABSOLUTE NEUTROPHILS 7.60 1.60 - 7.70 10(3)/mcL 03/15/2025 2:01 PM [facility] ABSOLUTE LYMPHOCYTES 1.66 1.30 - 3.20 10(3)/mcL 03/15/2025 2:01 PM [facility] ABSOLUTE MONOCYTES 1.05(H) 0.20 - 1.00 10(3)/mcL 03/15/2025 2:01 PM T [facility] ABSOLUTE EOSINOPHIL 0.03 0.00 - 0.40 10(3)/mcL 03/15/2025 2:01 PM CDT [facility] ABSOLUTE BASOPHILS 0.04 0.00 - 0.10 10(3)/mcL 03/15/2025 2:01 PM CDT [facility] ABSOLUTE IMMATURE GRANULOCYTE 0.09(H) 0.00 - 0.03 10 (3) mcL. 03/15/2025 2:01 PM CDT [facility] NRBC PER 100 WBC 0 03/15/20 2:01 PM CDT [facility] Blood Venipuncture / Unknown 03/15/2025 1:51 PM CDT 03/15/2025 1:59 PM CDT Chris Del Castillo MD HEMATOLOGY ORDERABLES Jennifer l Result Performing Organization Address City/[facility]/ZIP Co de Phone Number [facility] [address] [place] [address] * Lipase (03/15/2025 1:51 PM CDT) Pathologist [facility] LIPASE 8 8 - 78 U/L 03/15/2025 2:18 PM CDT [facility] Blood Venipuncture / Unknown 03/15/2025 1:51 PM CDT 03/15/2025 1:59 PM CDT Chris Del Castillo MD CHEMISTRY ORDERABLES Final Result [facility] [address] [place] [address] * (ABNORMAL) CMP (03/15/2025 1:51 PM CDT) SODIUM 136 136 - 145 mmol/L 03/15/2025 2:18 PM CDT [facility] POTASSIUM 3.5 3.5 - 5.1 mmol/L 03/15/2025 2:18 PM CDT [facility] CHLORIDE 105 98 - 107 mmol/L 03/15/2025 2:18 PM CDT [facility] CO2, VENOUS 22 22 - 30 mmol/L 03/15/2025 2:18 PM CDT [facility] ANION GAP 12.5 <18.0 mmol/L 03/15/2025 2:18 PM CDT [facility] GLUCOSE 75 70 - 99 mg/dL 03/15/2025 2:18 PM CDT [facility] BUN 4(L) 5 - 18 mg/dL 03/15/2025 2:18 PM CDT [facility] CREATININE, BLOOD 0.42(L) 0.60 - 1.00 mg/dL 03/15/2025 2:18 PM CDT [facility] BUN/CREATININE RATIO 10(L) 12 - 20 ratio 03/15/2025 2:18 PM CDT [facility] TOTAL PROTEIN 6.7 6.0 - 8.0 g/dL 03/15/2025 2:18 PM CDT [facility] ALBUMIN 3.7 3.5 - 5.0 g/dL 03/15/2025 2:18 PM CDT [facility] A/G RATIO 1.2 1.0 - 2.2 03/15/2025 2:18 PM CDT [facility] CALCIUM 9.0 8.7 - 10.5 mg/dL 03/15/2025 2:18 PM CDT [facility] T BILI 0.3 0.2 - 1.2 mg/dL 03/15/2025 2:18 PM CDT [facility] SGOT (AST) 11 <43 U/L 03/15/2025 2:18 PM CDT [facility] SGPT (ALT) 10 <56 U/L 03/15/2025 2:18 PM CDT [facility] ALKALINE PHOSPHATASE 72 40 - 150 U/L 03/15/2025 2:18 PM CDT [facility] GFR, ESTIMATED >60 >=60 03/15/2025 2:18 PM CDT [facility] Comment: Creatinine Clearance is the preferred criteria for selecting drug dose adjustments in renally impaired patients. The GFR is provided as additional pertinent clinical information. GFR is reported in mL/min/1.73 sq m. Calculation based on the 2020 Chronic Kidney Disease Epidemiology Collaboration (CKD-EPI) equation refit without adjustment for race. GFR, EST. >60 >=60 025 2:18 PM CDT [facility] Comment: Creatinine Clearance is the preferred criteria for selecting drug dose adjustments in renally impaired patients. The GFR is provided as additional pertinent clinical information. GFR is reported in mL/min/1.73 sq m. Calculation based on the 2009 Chronic Kidney Disease Epidemiology Collaboration (CKD-EPI). GFR, EST. NONAFRICAN >60 >=60 03/15/2025 2:18 PM CDT [facility] Comment: Creatinine Clearance is the preferred criteria for selecting drug dose adjustments in renally impaired patients. The GFR is provided as additional pertinent clinical information. GFR is reported in mL/min/1.73 sq m. Calculation based on the 2009 Chronic Kidney Disease Epidemiology Collaboration (CKD-EPI). Blood Venipuncture / Unknown 03/15/2025 1:51 PM CDT 03/15/2025 1:59 PM CDT us Chris Del Castillo MD CHEMISTRY ORDERABLES Final Result [facility] [address] [place] [address] * (ABNORMAL) Urinalysis w/ Reflex (03/15/2025 1:40 PM CDT) SPECIFIC GRAVITY 1.010 1.003 - 1.030 03/15/2025 2:26 PM CDT [facility] URINE PH 6.5 5.0 - 9.0 03/15/2025 2:26 PM CDT [facility] WBC ESTERASE 100 /uL(A) Negative 03/15/2025 2:26 PM CDT [facility] NITRITE Negative Negative 03/15/2025 2:26 PM CDT [facility] PROTEIN, RANDOM URINE 15 mg/dL(A) Negative 03/15/2025 2:26 PM CDT [facility] URINE GLUCOSE, QUAL Negative Negative 03/15/2025 2:26 PM CDT [facility] URINE KETONES Negative Negative 03/15/2025 2:26 PM CDT [facility] UROBILINOGEN Normal Normal mg/dL 03/15/2025 2:26 PM CDT [facility] URINE BLOOD Negative Negative keisha/ul 03/15/2025 2:26 PM CDT [facility] URINALYSIS COLOR Yellow 03/15/20 2:26 PM CDT [facility] URINALYSIS CLARITY Slightly Cloudy 03/15/2025 2:26 PM CDT [facility] WBC (Urine) 21-50(A) Negative, 0-5 /hpf 03/15/2025 2:26 PM CDT [facility] URINE RBC'S 0-2 Negative, 0-2 /hpf 03/15/2025 2:26 PM CDT [facility] EPITHELIAL CELLS Small amount /lpf 2024 2:26 PM CDT [facility] BACTERIA, URINE Moderate(A) Negative /hpf 03/15/2025 2:26 PM CDT [facility] Urine URINE SPECIMEN / Unknown Non-Phlebotomy Collection / Unknown 03/15/2025 1:40 PM CDT 03/15/2025 1:58 PM CDT us Chris Del Castillo MD URINE ORDERABLES Final Res ult [facility] [address] [place] [address] * Culture, Urine (03/15/2025 1:40 PM CDT) CULTURE RESULTS CITROBACTER KOSERI 03/17/2025 4:32 PM CDT [facility] CULTURE RESULTS GRAM-NEGATIVE BACILLUS 03/17/2025 4:32 PM CDT [facility] Comment:SENSITIVITY NOT PERF ORMED Urine URINE SPECIMEN / Unknown Non-Phlebotomy Collection / Unknown 03/15/2025 1:40 PM CDT 03/15/2025 1:58 PM CDT Narrative Organism Antibiotic Method Susceptibility Citrobacter koseri Cefepime [facility] VITEK IIB <=0.12 mcg/ml: Susceptible Citrobacter koseri Ceftriaxone [facility] VITEK IIB <=0.25 mcg/ml: Susceptible Citrobacter koseri Gentamicin [facility] IIB <=1 mcg/ml: Susceptible Citrobacter koseri Levofloxacin [facility] V[facility] IIB <=0.12 mcg/ml: Susceptible Citrobacter koseri Meropenem [facility] IIB <=0.25 mcg/ml: Susceptible Citrobacter koseri Nitrofurantoin [facility] IIB <=16 mcg/ml: Susceptible Citrobacter koseri Piperacillin/Tazobactam [facility] V[facility]K IIB <=4 mcg/ml: Susceptible Citrobacter koseri Trimeth/Sulfamethoxazole [facility] IIB <=20 mcg/ml: Susceptible Chris Del Castillo MD MICROBIOLOGY - GENERAL ORD ERABLES Final Result [facility] [address] [place] [address], [place] * POCT Urine HCG () (03/15/2025 1:40 PM CDT) POC URINE Positive POC URINE CONTROL [employer] [place] Urine 03/15/2025 1:40 PM CDT Chris Del Castillo MD POINT OF CARE TESTING (MAN UAL) Final Result from Last 3 Months Insurance MEDICAID [place] Care Teams Electro Optical Engineer Relationship Specialty Start Date End Date Lv Orr MD [address] [place] [facility] [place] [address] PCP - General Family Medicine 01/08/24
--- OUTSIDE RECORDS SUMMARY | 2025-04-19 10:55 | XMS_ITS | Clinical Summary ---
Author Organization [facility] [employer] Address [address] [place] [address] Care Team Providers Care Selector Packer Name Role Phone Rocío Kearney MD Primary Care Provider [phone] Source Comments [facility],non-owned Affiliates and Associated Physician Practices is amultiple site organization consisting of ambulatory clinics and hospital sitesin [place], [place], [place] and [place]. This disclosure is being madepursuant to the Care Everywhere program and may not contain all information available regarding this patient. Last updated 18.[facility] [employer] Allergies No known active allergies Medications * Be aware that medications may not be up to date on this document. Alwaysverify current medications with the patient. nortriptyline (PAMELOR) 10 MG capsuleIndications:C hronic tension-type headache, not intractable Take 1 capsule by mouth at bedtime 30 capsule 1 8 Active naproxen (NAPROSYN) 500 MG tablet TAKE 1 TAB BY MOUTH 2 TIMES DAILY NEEDED FOR PAIN (INTENSE HEADACHE) 12 tablet 1 8 Active JUNEL FE 08/10 1-20 MG-MCG tablet 8 Active fluticasone propionate (FLONASE) 50 MCG/ACT nasal sprayIndications:Acu te nasopharyngitis (common cold) [place] 2 sprays into each nostril once daily 1 bottles 8 Active benzonatate (TESSALON) 200 MG capsuleIndications:A cute nasopharyngitis (common cold) Take 1 capsule by mouth 3 times daily as needed for Cough 30 capsule 8 Active montelukast (SINGULAIR) 10 MG tabletIndications:Ac rabia nasopharyngitis (common cold) Take 1 tablet by mouth once daily 30 tablet 8 Active Active Problems Problem Noted Date Diagnosed Date Second 09/26/2020 Overview (09/26/2020): O+ Small for dates affecting ma nagement of mother, second trimester, fetus 1 09/26/2020 Overview (09/26/2020): LLP- resolved on outside scan. S/D ratio upper normal limits for 27 weeks/ EFW 13%, HC 3%, abnormal doppler flow per outside US. Patient transferred care to Dr. Merchant's office around 24-25 weeks. Unable to obtain dating scan yet. Chronic tension headache 09/03/2016 Assessment & Plan (10/21/2017 1:31 PM CDT): Chronic headaches, much improved now about a couple of times a month. 1. Keep headache diary 2. Maintain active lifestyle - encourage regular physical activity and limit screen time. 3. Eat healthy diet, and do not skip meals 4. Drink plenty of water, and avoid caffeine regularly. 5. Sleep: 1. Maintain good sleep routine. 2. Avoid distractions at bedtime such as TV, computer. 3. Get at least 8-10 hours of sleep nightly 4. Trial of Melatonin 3-5 mg at bedtime to help improve sleep onset 5. Reduce daytime napping 6. Take Naproxen as prescribed only for moderate-severe headaches. 7. Continue with nortriptyline 10 mg at bedtime. Take regularly and as prescribed. Call in a couple of months after school lets out for summer, to discuss coming off medication. 8. Call in the interim with update regarding headaches, or for other concerns Assessment & Plan (03/06/2017 2:26 PM CDT): Chronic headaches worsened by several lifestyle issues such as diet, hydration, excess caffeine, poor sleep, sedentary lifestyle etc. Needs to improve these lifestyle issues but will start a low dose preventative to help with chronic headaches and reduce analgesic overuse. 1. Keep headache diary 2. Maintain active lifestyle - encourage regular physical activity. 3. Eat healthy diet, and do not skip meals 4. Drink plenty of water, and avoid caffeine regularly. Reduce excess caffeine intake gradually. 5. Sleep: 1. Maintain good sleep routine. 2. Avoid distractions at bedtime such as TV, computer, phone. 3. Get at least 8-10 hours of sleep nightly 6. Do not use pain medication (such as Tylenol, Ibuprofen) more than 2 times/week in order to avoid medication overuse headaches 7. Use Naproxen as prescribed as needed only for intense disabling headaches 8. Start Nortriptyline 10 mg caps - 1 cap at bedtime. Take regularly and as prescribed. 9. Call in about 4 weeks with update regarding headaches, sooner for concerns Assessment & Plan (09/05/2016 2:27 PM CUSTOMER ACCOUNT TECHNICIAN): Chronic tension type headaches, worsened by some lifestyle issues such as poor diet/missing meals, sleep, also exacerbated by control pills. Normal neurological examination. 1. Keep headache diary 2. Maintain active lifestyle - encourage regular physical activity. 3. Eat healthy diet, and do not skip meals - eat breakfast regularly. 4. Drink plenty of water, and avoid caffeine regularly. 5. Sleep: 1. Maintain good sleep routine. 2. Avoid distractions at bedtime such as TV, computer. 3. Get at least 8-10 hours of sleep nightly 4. Reduce daytime naps. 6. Do not use pain medication (such as Tylenol, Ibuprofen) more than 2 times/week in order to avoid medication overuse headaches 7. Use Naproxen 500 mg tabs - 1 tab as needed only for moderate-severe headaches. Try comfort measures for milder headaches. 8. Handout on progressive muscle relaxation. 9. Call if headaches persist or worse after making above changes and change in control pill, to consider starting a daily headache preventative medication. Call for other neurological concerns. Social History Tobacco Use Types Packs/Day Years Used Date Smoking Tobacco: Passive Smo ke Exposure - Never Smoker Smokeless Tobacco: Never Comments No Sex and Gender Information Value Date Recorded Sex Assigned at Not on file Legal Sex Female 5:40 AM CUSTOMER ACCOUNT TECHNICIAN Gender Identity Not on file Sexual Orientation Not on file Last Filed Vital Signs Vital Sign Reading Time Taken Comments Blood Pressure 121/78 11/22/2020 10:07 AM CDT Pulse 80 11/22/2020 10:07 AM CDT Temperature 36.8 C (98.3 F) 10/22/2017 3:09 PM CDT Respiratory Rate 16 10/22/2017 3:09 PM CDT Oxygen Saturation - - Inhaled Oxygen Concentration - - Weight 64 kg (141 lb) 10/22/2017 3:09 PM CDT Height 157.4 cm (5' 1.97) 10/21/2017 12:34 PM C DT Body Mass Index 25.82 10/21/2017 12:34 PM CDT Plan of Treatment Health Maintenance Due Date Last Done Comments HPV VACCINE (1 - 3-dose series) 01/27/2016 CHLAMYDIA/GONORRHEA SCREENING 2017 DTAP/TDAP/TD VACCINES (1 - Tdap) 01/27/2020 HEPATITIS B VACCINE (1 of 3 - 19+ 3-dose series) 01/27/2020 DEPRESSION SCREENING 07/22/2024 COVID-19 VACCINE (1 - 2023- season) 2025 INFLUENZA VACCINE (#1) 2025 5, 08/02/2014, 09/15/2012, Additional history exists ZOSTER VACCINE (1 of 2) 2051 HEPATITIS C SCREENING Completed 09/27/2020 HIV SCREENING Completed 09/27/2020 HIB VACCINE Aged Out No longer eligi ble based on patient's age to complete this topic MENINGOCOCCAL (Group B) VACCINE SHARED DECISION-MAKING Aged Out No longer eligible based on patient's age to complete this topic MENINGOCOCCAL GROUPS A/C/Y/W VACCINE Aged Out No longer eligible based on patient's age to complete this topic PNEUMOCOCCAL VACCINE Aged Out No long er eligible based on patient's age to complete this topic Insurance [facility] Care Teams Selector Packer Relationship Specialty Start Date End Date Rocío Kearney MD [address] [place] [address] [place] [id number] PCP - General 12/12/20
== END 2025-04-19 11:01 | disposition home or self-care (01) ==
PROVIDERS: Emergency Provider Nurse Practitioner; PCP Family Medicine
DX: O23.42 Unspecified infection of urinary tract in pregnancy, second trimester (principal); Z3A.27 27 weeks gestation of pregnancy; O99.332 Smoking (tobacco) complicating pregnancy, second trimester; F17.290 Nicotine dependence, other tobacco product, uncomplicated; Z87.59 Personal history of other complications of pregnancy, childbirth and the puerperium; Z79.82 Long term (current) use of aspirin
CPT/HCPCS: 81003; 87086; 87186; 99213; G0463

== ENCOUNTER 2025-05-25 15:46 | Emergency (ER) | payer OTHER, SELFPAY ==
[2025-05-25 15:56] VITALS: BP 140/86; PULSE 103; RESP 20; TEMP 37.1; O2SAT 100
--- NOTE | 2025-05-25 16:30 | ED_ITS ---
HPI - URI/Sore Throat General Chief Complaint: Upper Respiratory Infection Stated Complaint: cough / sore throat Time Seen by Provider: 05/25/25 16:19 Source: patient, RN notes reviewed and old records reviewed Mode of arrival: ambulatory Limitations: no limitations History of Present Illness HPI Narrative: 25 year old female who presents to [facility] care with complaints of cough and sore throat that started on Saturday. Patient reports that she has been taking Tylenol for her symptom states it is painful to swallows. She is 8 months and is unsure what she can take safely being . Patient reports no known fevers chills or sweats or any body aches. MD elicited complaint: cough and sore throat Onset (ago): day(s) (3 days) Pain scale (0-10): 7 Able to tolerate fluids by mouth: Yes Exacerbating factors: swallowing Treatments prior to arrival: acetaminophen Related Data Home Medications ?Medication ?Instructions ?Recorded ?Confirmed ?Last Taken ?Type aspirin 81 mg capsule 81 mg PO DAILY 04/19/2503/23 Unknown History docosahexaenoic acid PO 05/25/25 Unknown History ferrous sulfate PO 05/25/25 Unknown History Allergies Allergy/AdvReac Type Severity Reaction Status Date / Time No Known Allergies Allergy Verified 05/25/25 15:55 Review of Systems Review of Systems: CONSTITUTIONAL: reports malaise, No chills, sweats, or fever. EYES: Denies visual changes, redness, or discharge. ENT: Reports no rhinorrhea, congestion, sinus pain,no otalgia and positive sore throat. CARDIOVASCULAR: Denies chest pain, palpitations, or edema. RESPIRATORY: Reports cough.? Denies dyspnea. GASTROINTESTINAL: Denies abdominal pain, nausea, vomiting, diarrhea SKIN: Denies rash or itching. MUSCULOSKELETAL: Denies myalgia. NEUROLOGIC: Denies headache. All systems reviewed & are unremarkable except as noted in HPI and below PMFSH Past Medical History Medical History Bronchitis Dental abscess Hypertension Urinary tract infection Hypertension during Family History Family History Mother Hypertension Grandparent Hypertension Diabetes mellitus Social History Social History (Reviewed 05/26/25 @ 16:26 by KENDALL Russo Alcohol intake: former Alcohol use details: none is Substance use: never Living arrangements: with family Gender identity (if verbalized by the patient): Female Spiritual care concerns: No Comments At time of signature, agree with nursing past medical, surgical, social and family history. There is no relevant family history pertinent to the presenting complaint Exam Narrative: GENERAL: Well-appearing, well-nourished, and in no acute distress. HEAD: Normocephalic EYES: PERRLA, conjunctivae clear ENT: Nares clear, turbinates edematous and erythematous, clear discharge. Mucous membranes moist. TM pearly do with dull light reflex bilaterally; no tragal tenderness. Oropharynx erythematous without lesions. Tonsils red mildly enlarged and without exudate, no drooling, no hoarseness, no trismus, uvula midline. NECK: Supple. No lymphadenopathy CHEST: Clear to auscultation, breath sounds equal. No wheezing, rhonchi, rales, or stridor. No respiratory distress, speaks in full sentences. dry cough noted, SAO2 100% on room air HEART: Regular rate and rhythm. No murmur heard. SKIN: Warm, dry, no rash. NEURO: Alert and oriented x3. PSYCH: Normal mood and affect Course Course Emergency Course: Patient is aware of diagnosis, understands and agrees to treatment plan.? Anticipatory guidance given.? Patient agrees to follow-up as directed and is aware of reasons to seek care at the emergency department. Portions of this record may have been created with voice recognition software Level of Care: Express Care Visit Vital Signs Vital signs: Vital Signs Temperature 37.1 C 05/25/25 15:56 Pulse Rate 103 H 05/25/25 15:56 Respiratory Rate 20 05/25/25 15:56 Blood Pressure 140/86 05/25/25 15:56 Pulse Oximetry 100 05/25/25 15:56 Oxygen Delivery Room Air 05/25/25 15:56 Temperature 37.1 C 05/25/25 15:56 Pulse Rate 103 H 05/25/25 15:56 Respiratory Rate 20 05/25/25 15:56 Blood Pressure 140/86 05/25/25 15:56 Pulse Oximetry 100 05/25/25 15:56 Oxygen Delivery Room Air 05/25/25 15:56 Reviewed MDM - URI/Sore Throat MDM Narrative Medical decision making narrative: Differential diagnosis considered: Ortez virus, strep pharyngitis, allergic rhinitis, upper respiratory tract infection, sinusitis, rhinosinusitis, nasopharyngitis. viral pharyngitis, otitis media, otitis externa, pneumonia, bronchitis, viral cough syndrome, viral syndrome, and influenza.? Exam findings show no acute concerns or changes; patient is non-toxic appearing and is in no distress.? Patient is appropriate for outpatient treatment and follow-up. Differential Diagnosis Differential diagnosis: Likely upper respiratory infection, viral infection, pharyngitis and other (strep pharyngiti, cough) Medical Records Attestation: I reviewed the patient's medical records. Lab Data Attestation: I reviewed the patient's lab results. Lab results narrative: strep screen negative, culture sent Labs: Lab Results 05/25/25 Range/Units 16:32 POC Grp A Strep Screen Negative (Negative) Critical Care Time Critical Care Time Critical Care Time: No Discharge Plan Discharge Clinical Impression: Upper respiratory infection Qualifiers: URI type: unspecified URI Qualified Code(s): J06.9 - Acute upper respiratory infection, unspecified Pharyngitis Qualifiers: Pharyngitis/tonsillitis etiology: unspecified etiology Qualified Code(s): J02.9 - Acute pharyngitis, unspecified Patient Disposition: Home Condition: Stable Instructions: Upper Respiratory Infection (DC) Additional Instructions: Increase fluids especially juices and water [id number]-[id number] cough and cold medicine of your choice for your symptoms Zyrtec or Claritin daily may use Benadryl at bedtime Robitussin DM for cough per package instcough heat to the face 20-30 minutes 4-6 times a day for pain Salt water gargles, throat lozenges or throat sprays as desired Your strep test today was negative. A throat culture will be sent to the laboratory for further testing. IF the test is positive, you will receive a phone call within 48 hours and an appropriate antibiotic will be initiated at that time. If your symptoms persist, change or worsen significantly before you can contact your personal physician then please, without delay, go to the emergency department for further evaluation. Follow-up with PCP in 7-10 days or sooner if needed Follow up with PCP soon in regards to your blood pressure which is elevated above threshold for referral. Blood pressure above 120/80 may indicate pre- hypertension. 140/86 Patient Language: Macanese Prescriptions: New cetirizine [Zyrtec] 10 mg tablet 10 mg PO DAILY Qty: 30 0RF dextromethorphan-guaifenesin [Robitussin Honey Max DM] 5-100 mg/5 mL liquid 15 ml PO Q4-8H PRN (Reason: cough) Qty: 120 0RF Rx Instructions: size and what would be covered with insurance No Action ferrous sulfate [Iron (ferrous sulfate)] PO docosahexaenoic acid [ DHA] PO aspirin 81 mg capsule 81 mg PO DAILY Follow-up/Referrals: PHYSICIAN,TURNSTILE COLLECTOR [Primary Care Provider, Internal Medicine] Time of Disposition: 16:43 Quality Kim Coma Scale Eyes: Open Verbal: Oriented and Alert Motor: Follows Commands Eugene Coma Total Score: 15
[2025-05-25 16:35] LABS: EDSTREPNEGPOS1 Negative (Negative)
--- OUTSIDE RECORDS SUMMARY | 2025-05-25 16:45 | XMS_ITS | Clinical Summary ---
Author Organization [facility] [employer] Address [address] [place] [address] Care Team Providers Care Park Guide Name Role Phone Rocío Kearney MD Primary Care Provider [phone] Source Comments [facility],non-owned Affiliates and Associated Physician Practices is amultiple site organization consisting of ambulatory clinics and hospital sitesin [place], [place], [place] and [place]. This disclosure is being madepursuant to the Care Everywhere program and may not contain all information available regarding this patient. 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 Gender Identity Not on file Sexual Orientation [...] - 3-dose series) 01/27/2016 CHLAMYDIA/GONORRHEA SCREENING 2017 HEPATITIS C SCREENING 01/22/2019 DTAP/TDAP/TD VACCINES (1 - Tdap) 01/27/2020 HEPATITIS B VACCINE (1 of 3 - 19+ 3-dose series) 01/27/2020 DEPRESSION SCREENING 07/22/2024 COVID-19 VACCINE (1 - 2023- season) 2025 INFLUENZA VACCINE (#1) 2025 5, 08/02/2014, 09/15/2012, Additional history exists ZOSTER VACCINE (1 of 2) 2051 HIV SCREENING Completed 09/27/2020 HIB VACCINE Aged [...] patient's age to complete this topic Insurance [facility] Care Teams Park Guide Relationship Specialty Start Date End Date Rocío Kearney MD [address] [place] [id number] PCP - General 12/12/20
--- OUTSIDE RECORDS SUMMARY | 2025-05-25 16:46 | XMS_ITS | Data Portability ---
Author Organization [facility] Address [address] [place] [address] [place] [address] Care Team Providers Care [employer] Physical Therapist Name Role Phone DEYIV SOLIS Primary Care Provider [phone] Assessment No assessment recorded. Plan of Treatment Reminders Order Date Submit Date Provider Last Modified By Organization Details Last Modified Time Details Appointments OB ROUTINE 2024 11:15A Archana SALAZAR MD Not available Not available Not available Lab iron + TIBC + ferritin, serum 2024 025 [facility] (Lab), [address], [place], [address], 05/22/2025 03:52:54 CBC w/ auto diff 2024 025 [facility] (Lab), [address], [place], [address], 05/22/2025 03:52:53 culture, urine 2024 025 [facility] (Lab), [address], [place], [address], 04/04/2025 03:41:38 drug screen, urine [email or web address] [place] [address], [address], [address], [place], [address], 04/02/2025 14:49:36 CT + NG + TV, RNA, unspecifi ed specimen 2024 025 [facility] (Lab), [address], [place], [address], 04/04/2025 03:41:37 Referral None recorded. Procedures None recorded. Surgeries None recorded. Imaging US, obstetric , follow-up 2024 025 [facility], [address], [address], [place], [address], 05/21/2025 17:11:58 Medication Orders None recorded. Patient TargetsNo targets recorded. Patient InstructionsNo instructions recorded. Reason for Referral None Reported. Results Created Date Observation Date Name Description Value Unit Range Abnormal Flag Note LastModifiedBy Organization Detail LastModifiedTime 04/02/2004/02/2025 CT/GC AND TRICH OMONA S VAGIN FATOU (RRNA ), URINE chlamydia trachomatis, PCR Negati ve negati ve Not Available [facility] (Lab) [address], [place], [address], 04/04/2025 03:41:37 04/02/2004/02/2025 CT/GC AND TRICH OMONA S VAGIN FATOU (RRNA ), URINE neisseria gonorrhoeae, PCR Negati ve negati ve Not Available [facility] (Lab) [address], [place], [address], 04/04/2025 03:41:37 04/02/2004/02/2025 CT/GC AND TRICH OMONA S VAGIN FATOU (RRNA ), URINE trichomonas vaginalis ribosomal RNA (rrna) Negati ve negati ve Not Available [facility] (Lab) [address], [place], [address], 04/04/2025 03:41:37 04/02/2004/02/2025 CULTU RE: URINE result report SEE RESULT S BELOW Test: Cultu re: Urine Speci men Sourc e: Urine - Clean Catch Speci men Type: Urine Speci men Date: 2024 1620 Resul t Date: 2024 0237 Resul t Statu s: Final resul t Abnor mal: No Resul ting Lab: [facility] [address] [facility] [address] Tel: CULTU RE ----- ----- ----- --- Cultu re resul t (>=3 organ isms prese nt) indic ates possi ble conta minat ion. Repea t cultu re if sympt oms indic ate. Not Available [facility] (Lab) [address], [place], [address], 04/04/2025 03:41:38 04/23/2004/23/2025 HEMAT OCRIT (HCT) HCT 33.2 % (based on docume nted legal sex) 34.0-4 5.0 low Not Available [facility] (Lab) [address] [place], [address], 04/24/2025 11:56:43 04/23/20 25 04/23/2025 HEMOG LOBIN (HGB) HGB 10.7 g/dL (based on docume nted legal sex) 11.6-1 5.4 low Not Available [facility] (Lab) [address] [place], [address], 04/24/2025 11:56:43 04/23/20 25 04/23/2025 GTT - GESTA SHASHANK L SCREE N, ACOG OB glucose, 1 hour screen 158 mg/dL 70-135 high Not Available [facility] (Lab) [address] [place], [address], 04/24/2025 11:56:44 04/23/2004/23/2025 HIV 1/2 ANTIG EN/AN TIBOD Y, REFLE X CONFI RMATI ON HIV antigen/anti body Nonrea ctive nonrea ctive HIV-1 antig en and HIV-1 /HIV- 2 antib odies were not detec raciel. No labor atory evide nce of HIV infec tion. Not Available [facility] (Lab) [address] [facility] [place], [address], 04/24/2025 11:56:44 04/23/2004/23/2025 RPR SCREE N, REFLE X TITER /CONF IRMAT ION RPR qualitative Nonrea ctive nonrea ctive Not Available [facility] (Lab) [address], [place], [address], 04/24/2025 11:56:44 04/30/2004/30/2025 GTT - GESTA SHASHANK L, 3 HOUR, ACOG glucose, fasting acog 73 mg/dL 70-94 Not Available [facility] (Lab) [address], [place], [address], 05/01/2025 08:45:46 04/30/20 25 04/30/2025 GTT - GESTA SHASHANK L, 3 HOUR, ACOG glucose, 1 hour acog 114 mg/dL 70-179 Not Available [facility] (Lab) [address] [place], [address], 05/01/2025 08:45:46 04/30/20 25 04/30/2025 GTT - GESTA SHASHANK L, 3 HOUR, ACOG glucose, 2 hour acog 120 mg/dL 70-154 Not Available [facility] (Lab) [address] [place], [address], 05/01/2025 08:45:46 04/30/20 25 04/30/2025 GTT - GESTA SHASHANK L, 3 HOUR, ACOG glucose, 3 hour acog 60 mg/dL 70-139 low Not Available [facility] (Lab) [address] [place], [address], 05/01/2025 08:45:46 05/21/20 25 05/21/2025 CBC W/DIF F WBC 8.0 10'3/ uL 3.5-10 .5 Not Available [facility] (Lab) [address] [place], [address], 05/22/2025 03:52:53 05/21/20 25 05/21/2025 CBC W/DIF F RBC 4.18 10'6/ uL (based on docume nted legal sex) 3.80-5 .20 Not Available [facility] (Lab) [address], [place], [address], 05/22/2025 03:52:53 05/21/2005/21/2025 CBC W/DIF F HGB 11.7 g/dL (based on docume nted legal sex) 11.6-1 5.4 Not Available [facility] (Lab) [address], [place], [address], 05/22/2025 03:52:53 05/21/20 25 05/21/2025 CBC W/DIF F HCT 35.5 % (based on docume nted legal sex) 34.0-4 5.0 Not Available [facility] (Lab) [address], [place], [address], 05/22/2025 03:52:53 05/21/20 25 05/21/2025 CBC W/DIF F MCV 84.9 fL 80.0-9 9.0 Not Available [facility] (Lab) [address], [place], [address], 05/22/2025 03:52:53 05/21/20 25 05/21/2025 CBC W/DIF F MCH 28.0 pg 27.0-3 4.0 Not Available [facility] (Lab) [address], [place], [address], 05/22/2025 03:52:53 05/21/20 25 05/21/2025 CBC W/DIF F MCHC 33.0 g/dL 32.0-3 5.5 Not Available [facility] (Lab) [address], [place], [address], 05/22/2025 03:52:53 05/21/20 05/21/2025 CBC W/DIF F RDW 15.1 % 11.0-1 5.0 high Not Available [facility] (Lab) [address], [place], [address], 05/22/2025 03:52:53 05/21/20 25 05/21/2025 CBC W/DIF F plt 212 10'3/ uL 150-40 0 Not Available [facility] (Lab) [address], [place], [address], 05/22/2025 03:52:53 05/21/20 25 05/21/2025 CBC W/DIF F MPV 9.9 fL 8.8-12 .1 Not Available [facility] (Lab) [address], [place], [address], 05/22/2025 03:52:53 05/21/20 25 05/21/2025 CBC W/DIF F NRBC's 0.0 % 0.0 Not Available [facility] (Lab) [address], [place], [address], 05/22/2025 03:52:53 05/21/20 25 05/21/2025 CBC W/DIF F absolute NRBCs 0.0 10'3/ uL no refere nce range establ ished Not Available [facility] (Lab) [address], [place], [address], 05/22/2025 03:52:53 05/21/20 25 05/21/2025 CBC W/DIF F neutrophils 73.2 % 34.0-7 3.0 high Not Available [facility] (Lab) [address], [place], [address], 05/22/2025 03:52:53 05/21/20 25 05/21/2025 CBC W/DIF F lymphocytes 17.6 % 15.0-5 0.0 Not Available [facility] (Lab) [address], [place], [address], 05/22/2025 03:52:53 05/21/20 25 05/21/2025 CBC W/DIF F monocytes 7.9 % 1.0-15 .0 Not Available [facility] (Lab) [address], [place], [address], 05/22/2025 03:52:53 05/21/20 25 05/21/2025 CBC W/DIF F eosinophils 0.4 % 0.0-8. 0 Not Available [facility] (Lab) [address], [place], [address], 05/22/2025 03:52:53 05/21/20 25 05/21/2025 CBC W/DIF F basophils 0.4 % 0.0-2. 0 Not Available [facility] (Lab) [address], [place], [address], 05/22/2025 03:52:53 05/21/20 25 05/21/2025 CBC W/DIF F immature granulocytes 0.5 % no define d refere nce range Immat ure Granu locyt es (IG) repre sents autom ated enume ratio n of Metam yeloc ytes, Myelo cytes and Promy elocy leatha when IG is < 5%. Blast s are not inclu ded in IG and repor raciel separ ately if prese nt. Not Available [facility] (Lab) [address], [place], [address], 05/22/2025 03:52:53 05/21/20 25 05/21/2025 CBC W/DIF F absolute neutrophils 5.9 10'3/ uL 1.5-8. 0 Not Available [facility] (Lab) [address] [place], [address], 05/22/2025 03:52:53 05/21/20 25 05/21/2025 CBC W/DIF F absolute lymphocytes 1.4 10'3/ uL 1.0-4. 0 Not Available [facility] (Lab) [address], [place], [address], 05/22/2025 03:52:53 05/21/20 25 05/21/2025 CBC W/DIF F absolute monocytes 0.6 10'3/ uL 0.2-1. 0 Not Available [facility] (Lab) [address], [place], [address], 05/22/2025 03:52:53 05/21/20 25 05/21/2025 CBC W/DIF F absolute eosinophils 0.0 10'3/ uL 0.0-0. 6 Not Available [facility] (Lab) [address], [place], [address], 05/22/2025 03:52:53 05/21/20 25 05/21/2025 CBC W/DIF F absolute basophils 0.0 10'3/ uL 0.0-0. 3 Not Available [facility] (Lab) [address], [place], [address], 05/22/2025 03:52:53 05/21/20 25 05/21/2025 CBC W/DIF F absolute immature granulocytes 0.0 10'3/ uL 0.00-0 .10 Refer ence range s for nonbi nary/ inter sex or unspe cifie d gende r patie nts have not been estab lishe d. Pleas e [facility] for range s estab lishe d for cisge nder patie nts and evalu ate in the clini timothy devin xt of the indiv idual patie nt: https ://lisa tang book. nm.or g/gen derx Not Available [facility] (Lab) [address], [place], [address], 05/22/2025 03:52:53 05/21/20 25 05/21/2025 JIM TIN / IRON / TRANS JIM N / TIBC iron 69 ug/dL 40-170 Not Available [facility] (Lab) [address], [place], [address], 05/22/2025 03:52:54 05/21/20 25 05/21/2025 JIM TIN / IRON / TRANS JIM N / TIBC transferrin 414 mg/dL 200-36 0 high Not Available [facility] (Lab) [address], [place], [address], 05/22/2025 03:52:54 05/21/20 25 05/21/2025 JIM TIN / IRON / TRANS JIM N / TIBC ferritin 10.4 NG/mL 8.0-25 2.0 Not Available [facility] (Lab) [address], [place], [address], 05/22/2025 03:52:54 05/21/20 25 05/21/2025 JIM TIN / IRON / TRANS JIM N / TIBC TIBC 580 ug/dL 250-45 0 high Not Available [facility] (Lab) [address], [place], [address], 05/22/2025 03:52:54 05/21/20 25 05/21/2025 JIM TIN / IRON / TRANS JIM N / TIBC iron saturation 12 % 20-55 low Not Available [facility] (Lab) [address], [place], [address], 05/22/2025 03:52:54 03/02/20 25 03/02/2025 US, filippo shah, 2nd or 3rd trime ster No observ ation record ed. [email or web address] [facility] [address], [place], [address], 03/02/2025 13:50:32 03/02/20 25 03/02/2025 US, filippo tric, 2nd or 3rd trime ster No observ ation record ed. [email or web address] [address] [address], [place], [address], 03/06/2025 11:22:35 05/21/20 25 05/21/2025 US, obste tric, follo w-up No observ ation record ed. [facility] [address], [place], [address], 05/21/2025 15:58:34 05/21/20 25 05/21/2025 US, obste tric, follo w-up No observ ation record ed. JERI Manzo [address], [place], [address], 05/21/2025 17:15:37 Result Notes None recorded. Problems Name Problem SNOMED Code Status Onset Date Resolution Date Notes Provider Name and Address Organization Details Recorded Time Pregnanc y-induce d hyperten lindsay [id number] Completed Vinny Merchant MD [address], [place], [address], [facility] 12:37:40 Chronic hyperten lindsay in obstetri c context [id number] Completed NSTs @ 32 wks, had baseline PIH labs & 24 TP with previous provider Corina newell [facility] 12:27:15 Pregnanc y 18286686 Completed 202012/09/2020 Naomi Quan [facility] 5 12:17:03 Low-lyin g placenta 471532690 Completed 202009/22/2020 RESOLVED Corina newell [facility] 12:27:15 Doppler studies abnormal [id number] Completed 2020 [facility]FM - [facility] 09/27 0900 U/S no follow up indicate d Corina newell [facility] 12:27:15 Small for gestatio nal age fetus 801527290 Completed 2020 MFM - [facility] 11/29 US & NST 0730 Corina newell [facility] 1 12:27:15 Chronic hyperten lindsay complica ting AND/OR reason for care during pregnanc y 49557492 Completed 202002/10/2021 Latia Wolf [facility] [facility], [facility] 1 10:44:01 Pregnanc y 92611049 Active 2024 Naomi Quan shraddha, [facility] 5 12:17:03 Past pregnanc y history of gestatio nal hyperten lindsay 568197452 Active 2024 G2 pregnanc y GLENDA SALAZAR MD [address], [place], [address], [facility] 5 12:20:55 Problem Notes None recorded. Procedures Surgical History Date Name Laterality Status Provider Name and Address Organization Details Recorded Time 5 Date of Last Pap Smear completed Naomi Quan [facility] 02/01/2025 20:20:59 1 NST completed Shayy Fuentes MD [address], [place], [address], [facility] 11/01/2020 12:04:11 Imaging Results None recorded. Procedure Notes None recorded. Medical Equipment None Reported. Allergies No known drug allergies Medications Name Sig Start Date Stop Date Status Note LastModified by Organization Details LastModified Time amoxicill in 500 mg capsule TAKE 2 CAPSULES BY MOUTH EVERY 12 HOURS FOR 10 DAYS TAKE UNTIL ALL ARE TAKEN 12/01 completed Not Available Not Available Not Available Mirena 21 mcg/24 hr (up to 8 [...] tablet TAKE 1 TABLET BY MOUTH EVERY 6 HOURS NEEDED - DR NOT ENROLLED IN STATE INS 12/01 completed Not Available Not Available Not Available bacitraci n 500 unit/gram topical ointment NAVI TOPICALL Y AA BID 08/10 completed Not Available Not Available Not Available metronida zole 500 mg tablet TAKE 1 TABLET BY MOUTH TWICE A DAY FOR 7 DAYS 08/10 completed Not Available Not Available Not Available tramadol 50 mg tablet TAKE 1 TABLET BY MOUTH EVERY 6 HOURS NEEDED FOR PAIN 12/01 completed Not Available Not Available Not Available amoxicill in 875 mg tablet TAKE 1 TABLET BY MOUTH TWICE A DAY -DR NOT ENROLLED IN STATE MED 12/01 completed Not Available Not Available Not Available cephalexi n 500 mg capsule TAKE 1 CAPSULE BY MOUTH TWICE A DAY 11/08 completed Not Available Not Available Not Available lisinopri l 10 mg tablet TAKE 1 TABLET BY MOUTH EVERY DAY 12/01 completed Not Available Not Available Not Available cephalexi n 500 mg tablet take one capsule by oral route every 12 hours 11/08 completed Not Available Not Available Not Available lisinopri l 5 mg tablet TAKE 1 TABLET BY MOUTH EVERY DAY 12/01 completed Not Available Not Available Not Available labetalol 100 mg tablet Take 1 tablet every day by oral route. 12/26 completed Not Available Not Available Not Available norethind radha (contrace ptive) 0.35 mg tablet TAKE 1 TABLET BY MOUTH EVERY DAY 12/01 completed Not Available Not Available Not Available [...] 1 TABLET BY MOUTH EVERY 12 HOURS FOR 10 DAYS 10/14 /2025 completed Not Available Not Available Not Available Vitamin 27 mg iron-0.8 mg tablet TAKE 1 TABLET BY MOUTH EVERY DAY 12/26 completed Not Available Not Available Not Available azithromy zahida 500 mg tablet TAKE 2 TABLETS BY MOUTH EVERY DAY FOR 1 DAY 03/02 completed Not Available Not Available Not Available 08/10 (28) 1 mg-20 mcg (21)/75 mg (7) tablet TAKE 1 TABLET BY MOUTH EVERY DAY 08/10 completed Not Available Not Available Not Available nitrofura ntoin monohydra te/macroc rystals 100 mg capsule TAKE 1 CAPSULE BY MOUTH TWICE A DAY FOR 7 DAYS FOR URINARY TRACT INFECTIO N active Not Available Not Available No t Available active Not Available Not Avai lable Not Available Slynd 4 mg (28) tablet TAKE 1 TABLET BY MOUTH EVERY DAY 12/01 completed Not Available Not Available Not Available Vitals Date Recorded Systolic And Diastolic Provider Name and Address Organization Details Last Updated DateTime 04/02/2025 133/88 mm[Hg] Archana MARK [address], [place], [address], [facility] 04/02/2025 14:16:17 Date Recorded Body height Body mass index (BMI) Body weight Provider Name and Address Organization Details Last Updated DateTime 04/02/2025 154.94 cm 35 kg/m2 71236.59 g [facility] 04/02/2025 14:09:58 Date Recorded Body height Body mass index (BMI) Body weight Systolic And Diastolic Provider Name and Address Organization Details Last Updated DateTime 04/23/2025 154.94 cm 35.9 kg/m2 95215.55 g 128/83 mm[Hg] [facility] 04/23/2025 10:31:01 Date Recorded Body height Body mass index (BMI) Body weight Systolic And Diastolic Provider Name and Address Organization Details Last Updated DateTime 05/04/2025 154.94 cm 36.3 kg/m2 00484.74 g 139/90 mm[Hg] [facility] 05/04/2025 11:49:40 Date Recorded Body weight Systolic And Diastolic Provider Name and Address Organization Details Last Updated DateTime 05/21/2025 92217.28373 g 123/85 mm[Hg] Afua Schulte [facility] 05/21/2025 12:31:00 Social History Question Answer Notes LastModified by Organizat ion Details LastModified Time Tobacco Smoking Status Never Smoker Latia llanes, [facility] 09/27/2020 10:48:19 Do You Have An Advance Directive? No [email or web address] Information n ot available 09/27/2020 If You Are , What Was Your Level Of Alcohol Consumption Prior To ? None [email or web address] Information not available 09/27/2020 Are You Blind Or Do You Have Difficulty Seeing? No [email or web address] Information n ot available 09/27/2020 What Is Your Level Of Caffeine Consumption? Moderate Information not available 08/10/2020 How Much Tobacco Do You Chew? None [email or web address] Information not available 09/27/2020 In The 14 Days Before Symptom Onset, Have You Had Close Contact With A Laboratory-confirm ed COVID-19 While That Case Was Ill? No [email or web address] Information n ot available 09/27/2020 In The 14 Days Before Symptom Onset, Have You Had Close Contact With A Person Who Is Under Investigation For COVID-19 While That Person Was Ill? No [email or web address] Information not available 09/27/2020 Have You Been To An Area Known To Be High Risk For COVID-19? No [email or web address] Information not available 09/27/2020 Are You Deaf Or Do You Have Serious Difficulty Hearing? No [email or web address] Information not available 09/27/2020 What Type Of Diet Are You Following? REGULAR [email or web address] Information n ot available 09/27/2020 What Is The Highest Grade Or Level Of School You Have Completed Or The Highest Degree You Have Received? [id number] [email or web address] Information not available 09/27/2020 Are There Any Guns Present In Your Home? No [email or web address] Information not available 09/27/2020 Do You Use Protection During Sex? No [email or web address] Information not available 09/27/2020 Do You Use Your Seat Belt Or Car Seat Routinely? Yes [email or web address] Information not available 09/27/2020 Do You Have Smoke And Carbon Monoxide Detectors In Your Home? Yes Information not available 09/27/2020 How Much Tobacco Do You Smoke? No [email or web address] Information not available 09/27/2020 Do You Use Sunscreen Routinely? Yes [email or web address] Information not available 09/27/2020 Has Tobacco Cessation Counseling Been Provided? No [email or web address] Information not available 09/27/2020 Have You Used IV Drugs? No [email or web address] Information not available 09/27/2020 How Many Years Have You Used E-cigarettes Or Vape? 1 [email or web address] Information not available 09/27/2020 Sex: Unknown Functional Status Question Answer Note LastModified by Organizat ion Details LastModified Time Do you use any illicit or recreational drugs? No Information not available 08/10/2020 Do you or have you ever used any other forms of tobacco or nicotine? Yes [email or web address] Information not available 09/27/2020 What is your level of alcohol consumption? None [email or web address] Information not available 09/27/2020 Are you able to walk independently without assistance or assistive devices? YESWOREST [email or web address] Information not available 09/27/2020 What is your occupation? [employer] Information not available 12/07/2024 Do you or have you ever used e-cigarettes or vape? Former user of electronic cigarettes [email or web address] Information not available 09/27/2020 What is your exercise level? Moderate Information not available 08/10/2020 Mental Status Question Answer Note LastModified by Organization D etails LastModified Time Do you feel stressed (tense, restless, nervous, or anxious, or unable to sleep at night)? [id number] [email or web address] Information not available 09/27/2020 Family History Relationship Description Onset Age of this Age Resolved Age Notes LastModified by Organization Details LastModified Time Paternal Grandfather Diabetes mellitus Not available 2020 12:22:01 Maternal Aunt Diabetes mellitus Not available 2020 12:22:01 Maternal Aunt Hyperlipidem ia [email or web address] Not available 2024 11:38:53 Mother Hyperlipidem ia [email or web address] Not available 2024 11:38:53 Mother Hypertensive disorder Not available 2020 12:22:49 Maternal Grandmother Hypertensive disorder Not available 2020 12:22:49 Paternal Aunt Hypertensive disorder Not available 2020 12:22:49 Medical History Condition Response Allergies (Food, seasonal, environmental ) N Other N Breast Cancer N Drug/Latex Allergies/Reactions N Blood Transfusion N Dermatologic Disorders N Lung Disease N Defects or Inherited Disease N Breast Problem N Gestational Diabetes N Hematologic disorders N Anesthesia Complications N History of STI Y Deep Vein Thrombosis N Polycystic ovary syndrome N Anxiety Disorder N Autoimmune disease N Arthritis N Infertility N Polyps N Acid Reflux (GERD) N History of abnormal pap N Cancer N Stroke N Varicosities N Neurologic/Epilepsy N Endometriosis N High Cholesterol N Headaches N Fibromyalgia N Kidney Disease N Heart Problems N Kidney or Bladder Problems N Thyroid Problems N GI Problems N Eating Disorder [...] N Thrombophilias N Gynecological History Statement/Question Response Flow Moderate Date of LMP 10/10/2024 On BCP's at Conception? N N Was last menstrual period normal Y STIs/STDs Y HPV Vaccine N Duration of Flow (days) 4 15 Current Control Method Age at First Child 5 Are cycles usually normal Y Frequency of Cycle (Q days) 4 Sexually Active? Y Age of first menstrual cycle 16 Date of Last Pap Smear 01/05/2025 Sexual Problems? N Desired Control Method BCPs LMP Definite N Obstetrics History GPAL:G 3 P 2 0 0 2 Type Value Full Term 2 Living 2 Total 3 Past Encounters Encounter ID Performer Location Encounter Start Date Encounter Closed Date Diagnosis/Indication Diagnosis SNOMED-CT Code Diagnosis ICD10 Code Diagnosis IMO Codes Diagnosis Note [id number] Vinny Merchant MD [facility] [address],[place] [address] 08/10/2020 11:32:10 08/10/2020 12:55:50 Routine care [id number] Z34.92 [id number] Vinny Merchant MD [facility] [address],[place] [address] 08/10/2020 16:35:17 11/22/2020 12:43:56 [id number] Vinny Merchant MD [facility] [address],[place] [address] 08/25/2020 11:22:34 08/25/2020 12:24:45 Low-lying placenta [id number] O44.40 Z3A.23 [id number] Vinny Merchant MD [facility] [address] [address],[place] [address] 09/16/2020 16:04:48 09/19/2020 14:01:39 Routine care [id number] Z34.92 [id number] Vinny Merchant MD [facility] [address],[place] [address] 1 09/22/2020 14:54:13 09/22/2020 15:36:17 Low-lying placenta 626789284 O44.40 Z3A.27 [id number] Jennifer Land, [facility] [address],[place] [address] 09/27/2020 10:36:23 09/27/2020 12:05:58 Routine care [id number] Z34.93 [id number] Margarita Ray [facility] [address],[place] [address] 1 10/11/2020 10:50:20 10/11/2020 11:35:24 Routine care 112224914 Z34.93 [id number] Shayy Fuentes MD [facility] [address],[place] [address] 1 10/25/2020 09:46:12 10/25/2020 11:28:04 Small for gestational age fetus 743545223 O36.5930 O36.8330 O16.3 Z3A.32 [id number] Shayy Fuentes MD [facility] [address],[place] [address] 10/25/2020 09:46:25 10/25/2020 12:02:54 Chronic hypertension complicating AND/OR reason for care during 83445489 O10.013 grow th restriction 66576184 O35.8XX9 [id number] Shayy Fuentes MD [facility] [address],[place] [address] 10/25/2020 09:47:46 10/25/2020 10:30:05 Chronic hypertension complicating AND/OR reason for care during 17032099 O10.013 [id number] Vinny Merchant MD [facility] [address],[place] [address] 1 10/28/2020 09:33:21 10/28/2020 10:48:00 Chronic hypertension complicating AND/OR reason for care during 65235074 O10.013 [id number] Vinny Merchant MD [facility] [address],[place] [address] 1 10/28/2020 11:10:50 10/28/2020 12:09:44 condition affecting obstetrical care of mother 518708003 O36.8330 [id number] Shayy Fuentes MD [facility] [address],[place] [address] 1 11/01/2020 10:38:26 11/01/2020 11:19:59 Chronic hypertension complicating AND/OR reason for care during 84905676 O10.013 [id number] Shayy Fuentes MD [facility] [address],[place] [address] 1 11/01/2020 10:38:47 11/01/2020 12:14:54 Chronic hypertension complicating AND/OR reason for care during 92540374 O10.013 Routine an tenatal care 848479763 Z34.93 [id number] Vinny Merchant MD [facility] [address],[place] [address] 1 11/01/2020 11:46:04 11/01/2020 12:22:19 condition affecting obstetrical care of mother 092114044 O36.8330 [id number] Vinny Merchant MD [facility] [address],[place] [address] 1 11/04/2020 12:06:39 11/04/2020 13:34:59 Chronic hypertension complicating AND/OR reason for care during 82296556 O10.013 [id number] MD Terrie [place] [address],[place] [address] 1 11/04/2020 12:06:52 11/28/2020 13:49:03 [id number] Vinny Merchant MD [facility] [address],[place] [address] 1 11/04/2020 12:07:05 11/04/2020 13:38:45 Small for gestational age fetus 556807186 O36.5930 Z3A.33 [id number] Margarita Ray [facility] [address],[place] [address] 1 11/08/2020 10:36:21 11/08/2020 11:24:02 Routine care 628864447 Z34.93 [id number] Vinny Merchant MD [facility] [address],[place] [address] 1 11/08/2020 10:35:12 11/08/2020 11:12:38 Chronic hypertension complicating AND/OR reason for care during 47852560 O16.9 [id number] Margarita Ray [facility] [address],[place] [address] 11/15/2020 14:22:17 11/15/2020 14:53:28 Routine care 161873461 Z34.93 [id number] Shayy Fuentes MD [facility] [address],[place] [address] 1 11/22/2020 11:45:42 11/22/2020 13:53:07 Chronic hypertension complicating AND/OR reason for care during 11250732 O10.013 [id number] Margarita Ray [facility] [address],[place] [address] 12/06/2020 12:11:45 12/06/2020 12:45:20 Chronic hypertension complicating AND/OR reason for care during 79374780 O16.9 Pt doing well. No h/a, v/d, or e/p. She has been taking her labetalol 200mg only once daily. Will decrease to 100mg daily and see her back in 1 week for bp check. Precaution s discussed. [id number] Margarita Ray [facility] [address],[place] [address] 12/26/2020 12:02:38 12/26/2020 12:25:55 state 75953036 Z39.2 Continue to watch for signs/symp toms of post depression . Return one year from last pap smear for a well woman exam. Pt desires mirena IUD. Discussed all risks and benefits. She will call us on the 1st day of her cycle once she is atleast 6 weeks post . Patient received above instructio ns, and questions have been answered. If you have any questions please call or respond to this email. Patient was made aware of the patient portal and may obtain a paper copy of today's plan if desired [id number] [facility] [address],[place] [address] 02/10/2021 10:31:23 02/10/2021 11:11:23 Contraception care management 230790234 Z30.9 13402 [facility] [address],[place] [address] 02/10/2021 16:46:23 02/13/2021 16:21:31 Contraception care management 535766513 Z30.9 [id number] Shayy Fuentes MD [facility] [address],[place] [address] 06/09/2021 16:01:13 06/12/2021 11:38:01 Essential hypertension 74056870 I10 Initial pr escription of oral contraception 036858167 Z30.011 [id number] MD Ivan Guerrero [address],[place] [address] 1 12/02/2024 14:56:06 12/02/2024 16:01:12 [id number] MD Ivan Guerrero [address],[place] [address] 1 12/02/2024 14:56:36 12/02/2024 16:16:37 Amenorrhea 66920355 N91.2 [id number] this patient is an 24-year-ol d female with amenorrhea . She has a positive test and ultrasound shows a viable intrauteri ne . We talked about early care. Talked about precaution s in that included comments about diet, exercise, over-the-c ounter medication s.. We talked about vaccines. Talked about genetic screening. Talked about her ultrasound today and your ultrasound at 12 weeks. She will begin routine care. We spent 20 minutes face-to-fa ce. More than 50% was counseling . [id number] MD Ivan Guerrero [address],[place] [address] 12/07/2024 15:35:19 12/07/2024 17:00:57 Essential hypertension 84270124 I10 21502 24-year-ol d female presents for blood pressures. She had a blood pressure check. It is normal today. She had an elevated blood pressure the other day. She has been on blood pressure medication for chronic hypertensi on. We made a decision not to restart her blood pressure medication . She will return in 2 weeks for blood pressure check. She was asked to find a blood pressure cuff and monitor [id number] Vinny Merchant MD [facility] [address],[place] [address] 12/24/2024 16:56:29 12/25/2024 11:54:22 [id number] MD Ivan Guerrero [address],[place] [address] 01/05/2025 11:35:31 01/05/2025 12:05:08 screening 959186098 Z36.82 Z3A.12 [id number] GLENDA SALAZAR MD [facility] [address],[place] [address] 01/05/2025 11:36:01 01/05/2025 12:32:24 Past history of gestational hypertension 700875678 Z87.59 [id number] - need to discuss bASA at next appointmen t- asymptomat ic- no hx of chronic HTN per patient Gestation period, 12 weeks 01818279 Z3A.12 7617157 - continue PNV [id number] MD Terrie [place] [address],[place] [address] 02/02/2025 09:44:07 02/02/2025 10:19:31 care status 755458205 Z34.82 [id number] - continue PNV- anatomy US at 20 weeks [id number] GLENDA SALAZAR MD [facility] [address],[place] [address] 03/02/2025 11:20:46 03/02/2025 12:28:03 Ultrasound scan - obstetric 346833707 Z36.3 Z3A.20 36206 [id number] GLENDA SALAZAR MD [facility] [address],[place] [address] 03/02/2025 11:21:01 03/02/2025 13:48:05 Past history of gestational hypertension 461987272 Z87.59 [id number] - need to discuss bASA at next appointmen t- asymptomat ic- no hx of chronic HTN per patient Gestation period, 20 weeks 99893902 Z3A.20 [id number] - continue PNV [id number] GLENDA SALAZAR MD [facility] [address],[place] [address] 04/02/2025 13:56:02 04/02/2025 14:28:17 Past history of gestational hypertension 425340831 Z87.59 [id number] - asymptomat ic- no hx of chronic HTN per patient Gestation period, 24 weeks 239580381 Z3A.24 [id number] - continue PNV [id number] GLENDA SALAZAR MD [facility] [address],[place] [address] 04/23/2025 10:05:05 04/23/2025 12:05:02 Past history of gestational hypertension 564442512 Z87.59 05670625 - asymptomat ic- no hx of chronic HTN per patient Gestation period, 27 weeks 35058738 Z3A.27 8627483 - continue PNV [id number] GLENDA SALAZAR MD [facility] [address],[place] [address] 05/04/2025 11:38:47 05/04/2025 12:28:28 Past history of gestational hypertension 177403969 Z87.59 51274395 - asymptomat ic- no hx of chronic HTN per patient Gestation period, 29 weeks 91753961 Z3A.29 8422371 - continue PNV [id number] MD Ivan [facility] [address],[place] [address] 05/21/2025 11:54:15 05/21/2025 12:23:49 Observational assessment 751178819 Z03.74 Z3A.31 5841736 [id number] GLENDA SALAZAR MD [facility] [address],[place] [address] 05/21/2025 11:54:39 05/21/2025 13:52:19 Anemia 328295496 D64.9 3962585 - Hgb 10.7- Fe supplement - recheck labs today Past pregn farhat history of gestational hypertension 967166700 Z87.59 32427627 - asymptomat ic- no hx of chronic HTN per patient Gestation period, 31 weeks 22786842 Z3A.31 2116430 - continue PNV Health Concerns Section Related Observation LastModified by Organization Detai ls LastModified Time None Recorded Concern Status LastModified by Organization Details LastModified Time None Recorded Advance Directives Directive N: Payers Insurance Date Sequence Insurance Name Policy Number Policy Lawson Covered Member ID Lawson Member ID Guarantor Name 05/18/2025 1 [facility] (MEDICAID HMO) [id number] Madiha Pino [id number] Madiha Pino Notes Date Note Type Note Provider Name and Address Organization Details Recorded Time 04/02/2025 text/html Generic HPI TemplateReported by Patient Afua ll[place] - [facility] 04/02/2025 15:00:45 04/23/2025 text/html Generic HPI TemplateReported by Patient GLENDA SALAZAR MD [address], [place], [address], [facility] 04/23/2025 12:01:39 05/04/2025 text/html Generic HPI TemplateReported by Patient GLENDA SALAZAR MD [address], [place], [address], [facility] 05/04/2025 12:20:23 05/21/2025 text/html Generic HPI TemplateReported by Patient GLENDA SALAZAR MD [address], [place], [address], [facility] 05/21/2025 13:45:54 OBGyn Episode Ob Episode Information Episode Created Date Number of Fetuses Patient Bloodtype Patient rh Status Prepregnancy Weight lbs Domestic Partner Domestic Partner Phone Father Name Farm Operations Manager Status 08/10/19 21 1 O Positive CLOSED Fetus Data First Name Last Name Admitted to NICU Weight (g) Sex Living Outcome Pediatric Complications Fetus ID Race Codes Race Delivery Type 1927.76 6 F true Full Term 7300 Vacuum Assisted Vaginal Delivery Problems Problem Notes FIRST BABY IS ADOPTED OUT, DOESN'T LIKE TO TALK ABOUT THIS!! 11/11- Per Jodi at [facility] they recommend 2x/wk MCA dopplers (we don't do this u/s here). Pt will be going to [facility] for 2x/wk BPP/Doppler/NST and will just come here for OB appts! 11/16 [facility] reduced twice weekly BPP/Doppler to 1wk pending dr rec. 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 Records reviewed - Will need rpt UC per records as well. ALFA levi 09/02/2020 Problem Name Start Date End Date Resolution Snomed Code Not e Chronic hypertension in obstetric context 6720914 NSTs @ 32 wks, had baseline PIH labs & 24 TP with previous provider Small for gestational age fetus 10/25/2020 [id number] [facility] 11/29 US & NST 0730 Low-lying placenta 08/25/2020 09/22/2020 [id number] RESOLVED Doppler studies abnormal 09/22/2020 [id number] [facility] 09/27 0 900 U/S no follow up indicated Gerry Calculation Initial Gerry Date Initial Exam Date Initial Exam Provider Initial Ultrasound Date Last Menstrual Period Date Ultra Sound Weeks Gestation 12/16/2020 08/10/2020 06/29/2020 03/11/2020 15 Eighteen To Twenty Week Gerry Update Ultra Sound Date Fundal Height At Umbil Quickening Date Ultra Sound Latest Weeks Gestation Final Gerry Confirmed By Final Gerry Confirmed Date Final Gerry Date Ultra Sound Latest Days Gestation 0 [email or web address] 08/10/2020 12/20/19 21 0 Pre- Flowsheet Flowsheet Date 08/10/2020 Jim Score Blood Edema Fundus Height Fundus Units Glucose Ketones Leukocytes Nitrite Labor Signs Protein Cervic Dilation Cervic Effacement Cervic Station Type Weight in lbs Pre/Post Dialysis Refused Weight 161.065946873544 BP Diastolic BP Location Tested BP Systolic [...] Weight in lbs Pre/Post Dialysis Refused Weight 168.889682825330 BP Diastolic BP Location Tested BP Systolic [...] Weight in lbs Pre/Post Dialysis Refused Weight 171.886947400137 BP Diastolic BP Location Tested BP Systolic [...] Weight in lbs Pre/Post Dialysis Refused Weight 172.498967285951 BP Diastolic BP Location Tested BP Systolic BP Type 82 121 Fetus Heart Rate Present A 136 Fetus Movement A Yes Comments Doing well. Having a girl K yla! Back discomfort off and on. Relieved by [...] Weight in lbs Pre/Post Dialysis Refused Weight 174.62930820325 BP Diastolic BP Location Tested BP Systolic BP Type 110 153 82 132 Fetus Heart Rate Present A 135 Fetus Movement A Yes Comments Doing well. Good FM. NST tod ay with one accel, BPP 8/8. Growth 10% with HC 1.5%. Normal dopplers. Will schedule return to MFM in a week. Has not had Tdap- [...] Weight in lbs Pre/Post Dialysis Refused Weight 176.182869289942 BP Diastolic BP Location Tested BP Systolic BP Type 96 138 90 140 Fetus Heart Rate Present A 130 Fetus Movement A Yes Comments Doing ok. Good FM. NST nonre active today, BPP 8/8. Awaiting MFM report from last week. Will [...] Weight in lbs Pre/Post Dialysis Refused Weight 177.694307816217 BP Diastolic BP Location Tested BP Systolic [...] Weight in lbs Pre/Post Dialysis Refused Weight 175.004388005534 BP Diastolic BP Location Tested BP Systolic BP Type 90 131 Fetus Heart Rate Present A 140 Fetus Movement A Yes Comments Visit per Z. Due SNM. NST an d U/S at [facility] today. Pt states the testing was all normal. Flowsheet Date 11/22/2020 Jim Score Blood Edema Fundus Height Fundus Units Glucose Ketones Leukocytes Nitrite Labor Signs Protein Cervic Dilation Cervic Effacement Cervic Station neg none 33 trace 1cm 30% -3 Type Weight in lbs Pre/Post Dialysis Refused Weight 180.604630334519 BP Diastolic BP Location Tested BP Systolic BP Type 85 125 Fetus Heart Rate Present Fetus Movement A Yes Comments Doing well. [facility]. They recommend delivery at 37 weeks for cHTN and SGA. Will schedule. GBS done and discussed. Good FM. Flowsheet Date 12/06/2020 Jim Score Blood Edema Fundus Height Fundus Units Glucose Ketones Leukocytes Nitrite Labor Signs Protein Cervic Dilation Cervic Effacement Cervic Station Type Weight in lbs Pre/Post Dialysis Refused Weight 165.815203629626 BP Diastolic BP Location Tested BP Systolic [...] Estim ated Date of Delivery false Thalassemia (Indonesian, Slovenian, Mediterranean, Or Background): MCV < 80 false Neural Tube Defect (Meningomyelocele, Spina Bifi da, Or Anencephaly) false Congenital Heart Defect false Down Syndrome false Luciano-Sachs (eg, Synagogue, Cajun, Hebrew-[place]) f alse Haroon Disease false Sickle Cell Disease Or Trait () false Hemophilia Or Other Blood Disorders false Muscular Dystrophy false Cystic Fibrosis false Zoila's Chorea false Intellectual Disability/Autism false If Yes, [...] 1 Induce d Regional-Ep idural 37 false [place], Margarita CNM CHTN & SGA Discharge Information Feeding Method Contraceptive Method Maternal HG B and HCT Levels Ob Episode Information Episode Created Date Number of Fetuses Patient Bloodtype Patient rh Status Prepregnancy Weight lbs Domestic Partner Domestic Partner Phone Father Name Farm Operations Manager Status 08/10/19 21 1 CLOSED Fetus Data First Name Last Name Admitted to NICU Weight (g) Sex Living Outcome Pediatric Complications Fetus ID Race Codes Race Delivery Type 3033.16 9704 M Full Term 7299 Vacuum Assisted Vaginal Delivery Gerry Calculation Initial Gerry Date Initial Exam Date Initial Exam Provider Initial Ultrasound Date Last Menstrual Period Date Ultra Sound Weeks Gestation 0 Eighteen To Twenty Week Gerry Update Ultra Sound Date Fundal Height At Umbil Quickening Date Ultra Sound Latest Weeks Gestation Final Gerry Confirmed By Final Gerry Confirmed Date Final Gerry Date Ultra Sound Latest Days Gestation 0 [...] Domestic Partner Domestic Partner Phone Father Name Farm Operations Manager Status 01/06/20 25 1 O Positive Bradley OPEN Fetus Data First Name Last Name Admitted to NICU Weight (g) Sex Living Outcome Pediatric Complications Fetus ID Race Codes Race Delivery Type [id number] Problems Problem Notes Problem Name Start Date End Date Resolution Snomed Code Not e Past history of gestational hypertension 01/05/2025 [id number] G2 Gerry Calculation Initial Gerry Date Initial Exam Date Initial Exam Provider Initial Ultrasound Date Last Menstrual Period Date Ultra Sound Weeks Gestation 07/17/2025 01/05/2025 12/02/2024 10/10/2024 7 Eighteen To Twenty Week Gerry Update Ultra Sound Date Fundal Height At Umbil Quickening Date Ultra Sound Latest Weeks Gestation Final Gerry Confirmed By Final Gerry Confirmed Date Final Gerry Date Ultra Sound Latest Days Gestation 0 [email or web address] 01/05/2025 07/17/20 25 0 Pre-jethro Flowsheet Flowsheet Date 01/05/2025 Jim Score Blood Edema Fundus Height Fundus Units Glucose Ketones Leukocytes Nitrite Labor Signs Protein Cervic Dilation Cervic Effacement Cervic Station Type Weight in lbs Pre/Post Dialysis Refused Weight 183.271625853989 BP Diastolic BP Location Tested BP Systolic BP Type 94 L arm 142 sitting 91 R arm 126 sitting Fetus Heart Rate Present Fetus Movement Comments Patient presents to [facility] care. Hx of gestational hypertension in her last , otherwise uncomplicated. No nausea or cramping. NT/NB wnl today, desires NIPT. Will draw today with new OB labs. RTC 4 weeks for routine care. Flowsheet Date 02/02/2025 Jim Score Blood Edema Fundus Height Fundus Units Glucose Ketones Leukocytes Nitrite Labor Signs Protein Cervic Dilation Cervic Effacement Cervic Station Type Weight in lbs Pre/Post Dialysis Refused Weight 181.209156622684 BP Diastolic BP Location Tested BP Systolic BP Type 89 L arm 124 sitting Fetus Heart Rate Present A 140 Fetus Movement A Yes Comments Feeling some flutters. No cr amping or bleeding. LR male! Other OB labs wnl as well. Discussed anatomy US for next visit. RTC 4 weeks Flowsheet Date 03/02/2025 Jim Score Blood Edema Fundus Height Fundus Units Glucose Ketones Leukocytes Nitrite Labor Signs Protein Cervic Dilation Cervic Effacement Cervic Station Type Weight in lbs Pre/Post Dialysis Refused BP Diastolic BP Location Tested BP Systolic BP Type Fetus Heart Rate Present Fetus Movement Comments Flowsheet Date 03/02/2025 Jim Score Blood Edema Fundus Height Fundus Units Glucose Ketones Leukocytes Nitrite Labor Signs Protein Cervic Dilation Cervic Effacement Cervic Station Type Weight in lbs Pre/Post Dialysis Refused Weight 185.845979247086 BP Diastolic BP Location Tested BP Systolic BP Type 29 L arm 138 sitting Fetus Heart Rate Present A 140 Fetus Movement A Yes Comments Good movement. No cram ping or bleeding. Anatomy complete and normal, EFW 75%. Variable position, repeat at 32 weeks. RTC 4 weeks. Flowsheet Date 04/02/2025 Jim Score Blood Edema Fundus Height Fundus Units Glucose Ketones Leukocytes Nitrite Labor Signs Protein Cervic Dilation Cervic Effacement Cervic Station Type Weight in lbs Pre/Post Dialysis Refused Weight 185.433862932570 BP Diastolic BP Location Tested BP Systolic BP Type 88 L arm 133 sitting Fetus Heart Rate Present A 145 Fetus Movement A Yes Comments Doing well, good movem ent. Had decreased movement on Saturday but now improved. No cramping or bleeding. Discussed GCT and labs for next visit. RTC 3 weeks. Flowsheet Date 04/23/2025 Jim Score Blood Edema Fundus Height Fundus Units Glucose Ketones Leukocytes Nitrite Labor Signs Protein Cervic Dilation Cervic Effacement Cervic Station Type Weight in lbs Pre/Post Dialysis Refused Weight 190.035636027867 BP Diastolic BP Location Tested BP Systolic BP Type 83 L arm 128 sitting Fetus Heart Rate Present A 125 Fetus Movement A Yes Comments Good movement. No cram ping or bleeding. On abx for UTI, 2nd one this . Discussed suppression if she has another UTI. GCT and labs today. Discussed tdap and RSV. RTC 2 weeks. Flowsheet Date 05/04/2025 Jim Score Blood Edema Fundus Height Fundus Units Glucose Ketones Leukocytes Nitrite Labor Signs Protein Cervic Dilation Cervic Effacement Cervic Station Type Weight in lbs Pre/Post Dialysis Refused Weight 192.155616178712 BP Diastolic BP Location Tested BP Systolic BP Type 90 L arm 139 sitting Fetus Heart Rate Present A 135 Fetus Movement A Yes Comments Doing well, good movem ent. No cramping or bleeding. Passed 3h GTT. Mild anemia, Fe supplement started. Recheck in 4 weeks. RTC 2 weeks with growth US. Flowsheet Date 05/21/2025 Jim Score Blood Edema Fundus Height Fundus Units Glucose Ketones Leukocytes Nitrite Labor Signs Protein Cervic Dilation Cervic Effacement Cervic Station Type Weight in lbs Pre/Post Dialysis Refused BP Diastolic BP Location Tested BP Systolic BP Type Fetus Heart Rate Present Fetus Movement Comments Flowsheet Date 05/21/2025 Jim Score Blood Edema Fundus Height Fundus Units Glucose Ketones Leukocytes Nitrite Labor Signs Protein Cervic Dilation Cervic Effacement Cervic Station Type Weight in lbs Pre/Post Dialysis Refused 193.77831569832 BP Diastolic BP Location Tested BP Systolic BP Type 85 L arm 123 sitting Fetus Heart Rate Present A Present Fetus Movement A Yes Comments Doing well, baby active. Rep eat anemia labs today. Taking Fe supplement. EFW 29%. Discussed tdap, RSV and flu. Discussed preadmission. RTC 2 weeks. Menstrual History Last Menstrual Date Menses Monthly On Bcp Conception Prior Menses Frequency Hcg Plus Date Menarche Onset Age 0310/10/2024 Delivery Information Delivery Date Delivery Type Labor Anesthesia Weeks Gestation Incision Type Labor Labor Length Hrs Delivered By Post Complications Tubal Sterilization Discharge Date Comments Discharge Information Feeding Method Contraceptive Method Maternal HG B and HCT Levels
--- OUTSIDE RECORDS SUMMARY | 2025-05-25 16:46 | XMS_ITS | Clinical Summary ---
Author Organization [facility] Address [address] [place] [address] Phone Care Team Providers Care Airplane Pilot Chief Name Role Phone Lv Orr MD Primary Care Provider [phone] Allergies No known active allergies Medications lisinopril (PRINIVIL, ZESTRIL) 5 MG Tablet Take 1 Tablet by mouth daily. 30 Tablet 01/08/2024 Active Encounters Date Type Department Care Team Description 03/15/2025 1:15 PM CDT - 03/15/2025 2:54 PM CDT Emergency [facility] [address] [place] [address] Esteban Florentino, NU Acute cystitis [...] - 12.00 10(3)/mcL 03/15/2025 2:01 PM CDT [facility] RBC 4.01 3.80 - 5.30 10(6)/mcL 03/15/2025 2:01 PM CDT [facility] HEMOGLOBIN (HGB) 11.6(L) 12.0 - 15.8 g/dL 03/15/2025 2:01 PM CDT [facility] HEMATOCRIT (HCT) 34.9(L) 36.0 - 47.0 % 03/15/2025 2:01 PM CDT [facility] MCV 87.0 82.0 - 96.0 fL 03/15/2025 2:01 PM CDT [facility] MCH 28.9 26.0 - 34.0 pg 03/15/2025 2:01 PM CDT [facility] MCHC 33.2 31.0 - 36.0 g/dL 03/15/2025 2:01 PM CDT [facility] PLATELET COUNT 211 140 - 440 10(3)/mcL 03/15/2025 2:01 [facility] RDW 14.1 11.8 - 15.5 % 03/15/2025 2:01 PM [facility] MPV 9.2(L) 9.7 - 12.4 fL 03/15/2025 2:01 PM [facility] NEUTROPHILS 72.5 47.0 - 73.0 % 03/15/2025 2:01 PM [facility] LYMPHOC[facility]TES 15.9(L) 18.0 - 42.0 % 03/15/2025 2:01 PM [facility] MONOCYTES 10.0 4.0 - 12.0 % 03/15/2025 2:01 PM [facility] EOSINOPHILS 0.3 0.0 - 5.0 % 03/15/2025 2:01 PM [facility] BASOPHILS 0.4 0.0 - 1.0 % 03/15/2025 2:01 PM [facility] IMMATURE GRANULOCYTE 0.9(H) 0.0 - 0.4 % 03/15/2025 2:01 PM [facility] Comment:Immature Granulocyte s includes Metamyelocytes, Myelocytes, and Promyelocytes. ABSOLUTE NEUTROPHILS 7.60 1.60 - 7.70 10(3)/[facility] 03/15/2025 2:01 PM [facility] ABSOLUTE LYMPHOCYTES 1.66 1.30 - 3.20 10(3)/[facility] 03/15/2025 2:01 PM [facility] ABSOLUTE MONOCYTES 1.05(H) 0.20 - 1.00 10(3)/[facility] 03/15/2025 2:01 PM [facility] ABSOLUTE EOSINOPHIL 0.03 0.00 - 0.40 10(3)/[facility] 03/15/2025 2:01 PM [facility] ABSOLUTE BASOPHILS 0.04 0.00 - 0.10 10(3)/[facility] 03/15/2025 2:01 PM [facility] ABSOLUTE IMMATURE GRANULOCYTE 0.09(H) 0.00 - 0.03 10 (3) mcL. 03/15/2025 2:01 PM CDT [facility] NRBC PER 100 WBC 0 03/15/20 2:01 PM CDT [facility] Blood Venipuncture / Unknown 03/15/2025 1:51 PM CDT 03/15/2025 1:59 PM CDT Chris Del Castillo MD HEMATOLOGY ORDERABLES Jennifer l Result [facility] [address] [place] [address] * Lipase (03/15/2025 1:51 PM CDT) LIPASE 8 8 - 78 U/L 03/15/2025 2:18 PM CDT [facility] Blood Venipuncture / Unknown 03/15/2025 1:51 PM CDT 03/15/2025 1:59 PM CDT Chris Del Castillo MD CHEMISTRY ORDERABLES Final Result [facility] [address] [place] [address] * (ABNORMAL) CMP (03/15/2025 1:51 PM CDT) SODIUM 136 136 - 145 mmol/L 03/15/2025 2:18 PM CDT [facility] POTASSIUM 3.5 3.5 - 5.1 mmol/L 03/15/2025 2:18 PM CDT [facility] CHLORIDE 105 98 - 107 mmol/L 03/15/2025 2:18 PM CDT [facility] CO2, VENOUS 22 22 - 30 mmol/L 03/15/2025 2:18 PM CDT [facility] ANION GAP 12.5 <18.0 mmol/L 03/15/2025 2:18 PM CDT [facility] GLUCOSE 75 70 - 99 mg/dL 03/15/2025 2:18 PM CDT [facility] BUN 4(L) 5 - 18 mg/dL 03/15/2025 2:18 PM T [facility] CREATININE, BLOOD 0.42(L) 0.60 - 1.00 mg/dL 03/15/2025 2:18 PM CDT [facility] BUN/CREATININE RATIO 10(L) 12 - 20 ratio 03/15/2025 2:18 PM CDT [facility] TOTAL PROTEIN 6.7 6.0 - 8.0 g/dL 03/15/2025 2:18 PM T [facility] ALBUMIN 3.7 3.5 - 5.0 g/dL 03/15/2025 2:18 PM T [facility] A/G RATIO 1.2 1.0 - 2.2 03/15/2025 2:18 PM CDT [facility] CALCIUM 9.0 8.7 - 10.5 mg/dL 03/15/2025 2:18 PM T [facility] T BILI 0.3 0.2 - 1.2 mg/dL 03/15/2025 2:18 PM T [facility] SGOT (AST) 11 <43 U/L 03/15/2025 2:18 PM T [facility] SGPT (ALT) 10 <56 U/L 03/15/2025 2:18 PM T [facility] ALKALINE PHOSPHATASE 72 40 - 150 U/L 03/15/2025 2:18 PM T [facility] GFR, ESTIMATED >60 >=60 03/15/2025 2:18 PM [facility] Comment: Creatinine Clearance is the preferred criteria for selecting drug dose adjustments in renally impaired patients. The GFR is provided as additional pertinent clinical information. GFR is reported in mL/min/1.73 sq m. Calculation based on the 2021 Chronic Kidney Disease Epidemiology Collaboration (CKD-EPI) equation refit without adjustment for race. GFR, EST. >60 >=60 025 2:18 PM CDT [facility] Comment: Creatinine Clearance is the preferred criteria for selecting drug dose adjustments in renally impaired patients. The GFR is provided as additional pertinent clinical information. GFR is reported in mL/min/1.73 sq m. Calculation based on the 2009 Chronic Kidney Disease Epidemiology Collaboration (CKD-EPI). GFR, EST. NONAFRICAN >60 >=60 03/15/2025 2:18 PM CDT [facility] Comment: Creatinine Clearance is the preferred [...] Del Castillo MD CHEMISTRY ORDERABLES Final Result [facility] [address] [place] [address] * (ABNORMAL) Urinalysis w/ Reflex (03/15/2025 1:40 PM CDT) SPECIFIC GRAVITY 1.010 1.003 - 1.030 03/15/2025 2:26 PM CDT [facility] URINE PH 6.5 5.0 - 9.0 03/15/2025 2:26 PM CDT [facility] WBC ESTERASE 100 /uL(A) Negative 03/15/2025 2:26 PM CDT [facility] NITRITE Negative Negative 03/15/2025 2:26 PM CDT [facility] PROTEIN, RANDOM URINE 15 mg/dL(A) Negative 03/15/2025 2:26 PM CDT [facility] URINE GLUCOSE, QUAL Negative Negative 03/15/2025 2:26 PM CDT [facility] URINE KETONES Negative Negative 03/15/2025 2:26 PM CDT [facility] UROBILINOGEN Normal Normal mg/dL 03/15/2025 2:26 PM CDT [facility] URINE BLOOD Negative Negative keisha/ul 03/15/2025 2:26 PM CDT [facility] URINALYSIS COLOR Yellow 03/15/20 2:26 PM CDT [facility] URINALYSIS CLARITY Slightly Cloudy 03/15/2025 2:26 PM CDT [facility] WBC (Urine) 21-50(A) Negative, 0-5 /hpf 03/15/2025 2:26 PM CDT [facility] URINE RBC'S 0-2 Negative, 0-2 /hpf 03/15/2025 2:26 PM CDT [facility] EPITHELIAL CELLS Small amount /lpf 2024 2:26 PM CDT [facility] BACTERIA, URINE Moderate(A) Negative /hpf 03/15/2025 2:26 PM CDT [facility] Urine URINE SPECIMEN / Unknown Non-Phlebotomy Collection / Unknown 03/15/2025 1:40 PM CDT 03/15/2025 1:58 PM CDT us Chris Del Castillo MD URINE ORDERABLES Final Res ult [facility] [address] [place] [address] * Culture, Urine (03/15/2025 1:40 PM CDT) CULTURE RESULTS CITROBACTER KOSERI 03/17/2025 4:32 PM CDT [facility] CULTURE RESULTS GRAM-NEGATIVE BACILLUS 03/17/2025 4:32 PM CDT [facility] Comment:SENSITIVITY NOT PERF ORMED Urine URINE [...] MICROBIOLOGY - GENERAL ORD ERABLES Final Result [facility] [address] [place] [address], * POCT Urine HCG () (03/15/2025 1:40 PM CDT) POC URINE Positive POC URINE CONTROL Photograph Editor Pass Urine 03/15/2025 1:40 PM CDT Chris Del Castillo MD POINT OF CARE TESTING (MAN UAL) Final Result from Last 3 Months Insurance [place] Care Teams Airplane Pilot Chief Relationship Specialty Start Date End Date Lv Orr MD [address] [facility] [place] [address] PCP - General Family Medicine 01/08/24
== END 2025-05-25 16:50 | disposition home or self-care (01) ==
PROVIDERS: Emergency Provider Registered Nurse
DX: J06.9 Acute upper respiratory infection, unspecified (principal); J02.9 Acute pharyngitis, unspecified; I10 Essential (primary) hypertension; Z79.899 Other long term (current) drug therapy
CPT/HCPCS: 87081; 87880; 99213; G0463

== ENCOUNTER 2025-06-17 06:11 | Inpatient (IN) | payer OTHER, SELFPAY ==
[2025-06-17] VITALS (32 sets, daily range): BP systolic 120–153; BP diastolic 63–102; PULSE 66–123; RESP 14–18; TEMP 36.6–36.8; O2SAT 96–100; BMI 36.6
[2025-06-17] MEDS: AMPICILLIN SODIUM 2 GM in SODIUM CHLORIDE 0.9% IV 100 ML 200 ML IVPB (07:37)
[2025-06-17] MEDS: LACTATED RINGERS 1,000 ML 125 ML IV CONT (07:38)
[2025-06-17 07:50] LABS: Hematocrit 36.1 % (37.0-47.0); Hemoglobin 12.0 g/dL (12.0-15.0); Immature Granulocyte Percent A 0.6 % (0-0.5); Lymphocytes Absolute Auto 1.40 K/mm3 (0.9-3.2); Mean Corpuscular HGB Conc 33.2 g/dl (32-36); Mean Corpuscular Hemoglobin 27.5 pg (26-34); Mean Corpuscular Volume 82.8 fl (80-100); Nucleated Red Blood Cells Absolute Auto 0.000 K/mm3 (0.0-0.012); Nucleated Red Blood Cells Perc 0.0 % (0.0-0.2); Platelet Count Result 190 k/mm3 (150-375); Red Blood Count 4.36 M/mm3 (4.2-5.4); White Blood Count 10.2 K/mm3 (4.5-10.0)
--- NOTE | 2025-06-17 08:32 | WPDOBADMIT ---
Obstetrics - Admit Note Admission Note: record reviewed. No pertinent additions to the history and/or any subsequent changes in the physical findings that are not consistent with the expected course of the were found. Patient presents in labor, SROM while admitted. Additions to the history and/or subsequent changes in the physical findings follow. None.
--- NOTE | 2025-06-17 08:34 | PM.OBPRVD ---
OB - Vaginal Delivery Note Procedure Delivery date: 06/17/25 Events: Premature Rupture of Membranes Intrapartal Events: Other (precipitous labor) Induction method: None Delivery monitor: External FHT and External Uterine Route of delivery: Episiotomy description: None Laceration Description: None Delivery repair: vicryl Specimen: No Quantitative Blood Loss (ml): 100 Anesthesia type: None Disposition: Floor Complications: No immediate complications Narrative: See H&P and notes for details on patient's admission and labor. She progressed to complete cervical dilation and precipitously delivered her . The umbilical cord was doubly clamped and cut after 60 seconds of delayed cord clamping. Care of the was then assumed by the nursing staff. Baby Date of : 06/17/25 Time of : 08:23 Gestational Age by Date: 35 Infant gender: Male Weight (pounds): 5 Weight (ounces): 15 presentation: vertex Placenta delivery description: Delivery of Placenta Only Cord Vessel Description: 3 Vessels and Delayed Cord Clamping
[2025-06-17] MEDS: BENZOCAINE 20% AER SPR (*SP) 56 GM CAN 1 SPRAY TOPICAL (08:50)
[2025-06-17] MEDS: WITCH HAZEL 40 PADS 1 PAD TOPICAL (08:50)
[2025-06-17] MEDS: IBUPROFEN 600 MG TABLET PO ×2 (08:51→21:48)
[2025-06-17] MEDS: OXYTOCIN 30 UNITS/NS 500 ML 30 UNITS/500 ML BAG 125 UNITS IV CONT (09:05)
[2025-06-17 09:10] LABS: Alanine Aminotransferase 13 U/L (6-35); Albumin Level 4.2 g/dL (3.5-5.1); Alkaline Phosphatase 181 U/L (38-126); Anion Gap 8 mmol/L (4-12); Aspartate Amino Transferase 18 U/L (14-36); Bilirubin,Total 0.8 mg/dL (0.2-1.3); Blood Urea Nitrogen 7 mg/dL (7-17); Calcium 9.7 mg/dL (8.4-10.2); Carbon Dioxide 21 mmol/L (22-30); Chloride 106 mmol/L (98-107); Estimated Glomerular Filt Rate > 60; Glucose 82 mg/dL (65-110); Potassium 3.7 mmol/L (3.4-5.0); Sodium 135 mmol/L (137-145); Total Protein 8.0 g/dL (6.3-8.2); Uric Acid 5.3 mg/dL (2.5-7.5)
[2025-06-17 09:38] LABS: Syphilis IgG/IgM Antibody Non-Reactive (Nonreactive)
--- NOTE | 2025-06-17 10:10 | LDADM ---
This patient, Madiha Pino, was admitted to Labor/Delivery/Recovery 104 on 06/17/25 at 06:11. Plans for labor, pain management and were discussed with patient. Patient/family oriented to hospital policies and general routines including ID bracelet, bed and alarms, visiting hours, pain management, procedures, bathroom and other care routines, personal items, smoking policy, room service/diet and guest tray routines, security routines, and visiting hours. Patient/Family are encouraged to report perceived risks to care and to ask questions if they do not understand what they are told or what they should do. See [facility]BI[facility] for further documentation.
--- NOTE | 2025-06-17 12:00 | OBPPTRN ---
1115- Patient transferred to post room #286 via wc. Support person present. Oriented to unit, room, information board, rooming in, admission packet and security measures. Patient verbalizes understanding.
[2025-06-17 13:07] LABS: OBXCEM ROM Plus Positive (Negative)
[2025-06-17] MEDS: DOCUSATE SODIUM 100 MG CAPSULE PO (16:56)
[2025-06-18 03:55] VITALS: BP 130/80; PULSE 82; RESP 16; TEMP 36.6; O2SAT 100
[2025-06-18 04:09] LABS: Hematocrit 31.3 % (37.0-47.0); Hemoglobin 10.2 g/dL (12.0-15.0)
[2025-06-18 08:30] VITALS: BP 121/88; PULSE 91; RESP 18; TEMP 36.6; O2SAT 100
--- NOTE | 2025-06-18 10:27 | P.PNOB_ITS ---
OB - PN: Subj Subjective Date/time seen: 06/18/25 10:27 Interval history: PPD#1 s/p Doing well, pain controlled Voiding without issue Tolerating general diet Baby doing well OB - PN: Obj Data Labs 06/18/25 03:59 06/17/25 07:39 Labs: Laboratory Results - last 24 hr 06/17/25 06/18/25 06:42 03:59 Hgb 10.2 L Hct 31.3 L Membranes Rupture Rom plus positive OB - PN A/P Assessment and Plan (1) (spontaneous vaginal delivery): Code(s): O80 - Encounter for full-term uncomplicated delivery Status: Acute Plan day: 1 Plan: routine care Time Spent With Patient Time: Total time spent is greater than 50% in coordination of care (as documented) at patient's floor/unit and/or counseling patient: Review of Systems 2 Review of Systems: All systems reviewed & are unremarkable except as noted in HPI and below Exam 2 Const: General: comfortable and no acute distress O rientation/consciousness: patient oriented x3 Resp: Effort & Inspection: normal respiratory effort
[2025-06-18] MEDS: IBUPROFEN 600 MG TABLET PO ×2 (12:08→22:09)
[2025-06-18] MEDS: DOCUSATE SODIUM 100 MG CAPSULE PO (17:10)
[2025-06-18 19:00] VITALS: BP 126/85; PULSE 89; RESP 16; TEMP 36.6; O2SAT 100
[2025-06-19 08:32] VITALS: BP 117/84; PULSE 86; RESP 18; TEMP 36.8; O2SAT 100
[2025-06-19] MEDS: IBUPROFEN 600 MG TABLET PO ×2 (08:53→14:53)
[2025-06-19] MEDS: DOCUSATE SODIUM 100 MG CAPSULE PO (08:53)
[2025-06-19] MEDS: MULTIVIT/MIN/PREN/FOL AC/IRON TABLET 1 TAB PO (08:53)
--- NOTE | 2025-06-19 10:58 | P.PNOB_ITS ---
OB - PN: Subj Subjective Date/time seen: 06/19/25 10:58 Interval history: PPD#2 s/p Doing well, pain controlled Voiding without issue Tolerating general diet Baby doing well,working on weight gain and feeding Transition to no care bed OB - PN: Obj Data Labs 06/18/25 03:59 06/17/25 07:39 OB - PN A/P Assessment and Plan (1) (spontaneous vaginal delivery): Code(s): O80 - Encounter for full-term uncomplicated delivery Status: Acute Plan day: 2 Plan: routine care and discharge home Time Spent With Patient Time: Total time spent is greater than 50% in coordination of care (as documented) at patient's floor/unit and/or counseling patient: Review of Systems 2 Review of Systems: All systems reviewed & are unremarkable except as noted in HPI and below Exam 2 Const: General: comfortable and no acute distress O rientation/consciousness: patient oriented x3 Resp: Effort & Inspection: normal respiratory effort
--- NOTE | 2025-06-19 11:14 | PM.OBDSVD ---
DS: Admitting Diagnosis Discharge Date 06/19/25 Admitting Diagnosis labor DS: Discharge Diagnosis Discharge Diagnosis (1) (spontaneous vaginal delivery): Code(s): O80 - Encounter for full-term uncomplicated delivery Status: Acute OB - DS: Summary OB Procedures : None OB Procedures Intrapartum: Spontaneous Vag Delivery OB Procedures: : None Peripartum Data Laceration Description: None Episiotomy description: None Time Spent with Patient Time attestation: Total time spent providing and/or coordinating discharge services: Discharge Plan Discharge Attending physician on discharge: Guille Delgado Discharging Clinician: Guille Delgado Patient Disposition: Home Activity: may shower, as tolerated and pelvic rest Diet: as tolerated Patient Instructions: Antibiotic Form Patient Language: Barbadian Stand Alone Forms: General Discharge Information Follow-up/Referrals: Guille Delgado MD [Physician, MONITOR CAR OPERATOR] - 4 Weeks Discharge Medications: New ibuprofen 600 mg Tablet 600 mg PO Q6H PRN (Reason: Cramping) Qty: 30 0RF Continued ferrous sulfate [Iron (ferrous sulfate)] PO docosahexaenoic acid [ DHA] PO cetirizine [Zyrtec] 10 mg tablet 10 mg PO DAILY Qty: 30 0RF dextromethorphan-guaifenesin [Robitussin Honey Max DM] 5-100 mg/5 mL liquid 15 ml PO Q4-8H PRN (Reason: cough) Qty: 120 0RF Rx Instructions: size and what would be covered with insurance Discontinued aspirin 81 mg capsule 81 mg PO DAILY Date of admission: 06/17/25 06:11 Primary Care Provider: UNKNOWN,DOCTOR Admitting Provider: Guille Delgado Attending physician on admission: Guille Delgado Condition: Stable
[2025-06-21 09:42] VITALS: BP 140/95; PULSE 78; RESP 18; TEMP 37; O2SAT 100
== END 2025-06-19 17:00 | disposition home or self-care (01) | DRG 560 ==
LOC: ANHLDR 07:22 → ANHOB2 11:26
PROVIDERS: Admitting Provider Obstetrics & Gynecology; Visit Provider Obstetrics & Gynecology
DX: O60.13X0 Preterm labor second trimester with preterm delivery third trimester, not applicable or unspecified (principal); Z37.0 Single live birth; Z3A.35 35 weeks gestation of pregnancy; O62.3 Precipitate labor; O42.013 Preterm premature rupture of membranes, onset of labor within 24 hours of rupture, third trimester; O13.4 Gestational [pregnancy-induced] hypertension without significant proteinuria, complicating childbirth
CPT/HCPCS: 36415; 80053; 84112; 84550; 85014; 85018; 85025; 86593; 86850; 86900; 86901; A9270; J0290; J2590; J7120